=== PATIENT | male | born 1930 | race Caucasian/White ===

== ENCOUNTER → 2017-06-28 | Outpatient (CLI) | payer MEDICARE, OTHER ==
[2015-07-22 16:00] VITALS: BMI 31.4
[~2017-06-28] MED LIST: ACET-1966 PO; ACET-2031 PO; ACET-2043 PO; ALE70 PO; ALEN70TA43 PO; ASCO-188 PO; ASPI-715 PO; ASPI81TA86 PO; ASPI81TA94 PO; BIPAP; CALC-465 PO; CALC-649 PO; CALC-845 PO; CALC1TAB32 PO; CALC1TAB58 PO; CARB-222 OT; CEFT1VIA52 IM; CEFT2VIA IV; CEP250 PO; CEP500 PO; CEPH-13 PO; CIPR750T84 PO; DEN60I SUBQ; DIAZ5SOL4 PO; DOXY-179 PO; FAM20 PO; FAMO1TAB59 PO; FERR325T24 PO; FLU60SYR30 IM; FURO-45 PO; FURO20TA19 PO; GLUC100026 PO; GLUC500C29 PO; GLUC500C40 PO; HEPA100D58 IV; HYDR-2946 PO; HYDR-3104 PO; HYDR-385 PO; IBU600 PO; IRON150C19 PO; IRON1CAP52 PO; LACT1CAP6 PO; LEU3.75I IM; LEUP1KIT SQ; LEVO-85 PO; LEVO750T44 PO; LIDO700A29 TD; LOR5 PO; LOR5/325 PO; METH4TAB66 PO; METO-233 PO; METO-259 PO; METO25TA23 PO; METO50TA19 PO; MIRT-1 PO; MOM PO; MULT-820 PO; MULT1TAB64 PO; OMEG300C PO; OSE75 PO; OXYC-373 PO; OXYC5CAP21 PO; OXYGENHOME INH; PAN20 PO; PAN40 PO; PANT20TA26 PO; PANT20TA27 PO; PANT40TA65 PO; PHENA200 PO; POTA-23 PO; POTA-28 PO; POTA-53 PO; POTA10CA40 PO; PRED-1 PO; RANI150C17 PO; SALT PO; SODI30SP6 NS; TIO18R INH; TRIA10.8; VANC1VIA12 IV; VITAMIN D PO; [UNRECOGNIZED DRUG - CODE] IJ; [UNRECOGNIZED DRUG - CODE] MC; [UNRECOGNIZED DRUG - CODE] PO; [UNRECOGNIZED DRUG - CODE] PO; [UNRECOGNIZED DRUG - CODE] PO; [UNRECOGNIZED DRUG - REMARK]; [UNRECOGNIZED DRUG - REMARK]; mvi PO
== END ==
LOC: SPU 14:46
PROVIDERS: ATTEND Orthopaedic Surgery
DX: T84.84XD Pain due to internal orthopedic prosthetic devices, implants and grafts, subsequent encounter (principal)
CPT/HCPCS: 85651; 86140

== ENCOUNTER 2017-07-28 15:30 | Outpatient (RCR) | payer MEDICARE, OTHER, MEDICAID ==
[2015-07-22 16:00] VITALS: BMI 31.4
[2017-05-04 15:52] VITALS: BP 139/75
[2017-05-04 16:07] LABS: PLATELET COUNT, AUTOMATED 132 K/uL (150-450)
[2017-05-19 15:44] LABS: PLATELET COUNT, AUTOMATED 122 K/uL (150-450)
--- NOTE | 2017-05-24 15:22 | ONC Progress Note - NP.Halsey ---
Patient History Date of Service May 24, 2017 Reason For Visit/HPI Patient is seen in the clinic today for follow-up of his anemia of chronic disease, history of prostate cancer which is been without evidence of recurrence. Patient continues on Aranesp 200 g every other week. We hold Aranesp if his hemoglobin is above 11. He is doing quite well with this. Overall his energy has increased since initiation and he has not required blood transfusions. He feels very well and has concerns today. He is seen with his daughter. Patient continues to live in an assisted living facility. He has recently followed with an ENT and reports that there is a nodule on his throat that they're going to further evaluate with an MRI. He is having no difficulty swallowing. Problem List (1) Chronic kidney disease (CKD) (2) Anemia Oncology History PAST MEDICAL HISTORY 1. Paroxysmal supraventricular tachycardia 2. Skin cancer 3. Gastroesophageal reflux disease (GERD) 4. Osteoporosis 5. Vitamin B deficiency 6. Chronic anemia 7. History of prostate cancer 8. Lumbar spinal stenosis PAST SURGICAL HISTORY 1. Laminectomy in March of 2012, lumbar multiple level for lumbar stenosis 2. Bilateral orchiectomy in 1991 3. Skin cancer of the left eye in 2009 4. Skin cancer of the left sikhism in February of 2012 5. Laminectomy in 1979 of the lumbar area 6. Abdominal surgery times five, status post appendectomy, colostomy, and taking down of the colostomy. 7. Appendectomy at the age of 16. 8. Left ankle replacement in April 2012 9. Bilateral cataract extraction 10. Right elbow open reduction internal fixation (ORIF) 11. Right arthroscopic knee surgery 12. Left ankle tendon surgery 13. Hand surgery for multiple trigger finger Medical History Family History: FH: brain cancer FATHER (Father had brain cancer at age 72) BROTHER OR SISTER (Brother with brain tumor at the age of 80) FH: uterine cancer MOTHER (had uterine cancer at the age of 67) Psychosocial History Social History The patient is a . He had two daughters. He is a retired railroad contractor. He has two drinks per week. He quit smoking in 1999; prior to that he smoked two packs a day for 50 years. He denies any abuse of drugs. Smoking History: Yes Smoking Status: Former Smoker Exposure to Second Hand Smoke?: No When Quit Tobacco?: 12 years ago Medications and Allergies Active Scripts Tiotropium Nogal (SPIRIVA) 18 Mcg/Cap Inh, 1 CAP INH DAILY, #30 CAP 5 Refills Prov:RONNIE PACHECO APRNP- 05/17/17 Triamcinolone Acetonide (Nasacort) 10.8 Ml [place], 2 SPRAY NA DAILY, #1 BOTTLE 11 Refills Prov:RONNIE PACHECO APRN 05/15/17 Pantoprazole Sodium (PANTOPRAZOLE SODIUM) 20 Mg Tablet., 1 TAB PO QDAY, #90 TAB.SR 4 Refills Prov:VALE BUTT MD 11/11/16 Aspirin (ASPIRIN EC) 81 Mg Tablet., 1 TAB PO QDAY, #30 TAB 1 Refill Prov:VALE BUTT MD 05/03/16 Darbepoetin Gabriel In Polysorbat (ARANESP) 200 Mcg/1 Ml Vial, 200 MCG IJ q 2 weeks , #1 VIAL Prov:RENU CORDON GRAPPLER-BC, ONC 12/02/15 Bipap Home (BIPAP HOME) Inha, EACH QHS, #1 Prov:RONNIE PACHECO APRN [facility]- 09/10/15 Reported Medications Levofloxacin 750 Mg Tab (LEVAQUIN 750 MG TAB) 750 Mg Tablet, 1 TAB PO QODAY 05/02/16 Oxygen (OXYGEN) Inha, 3 L INH cont, L 03/10/16 Bipap Home (BIPAP HOME) Inha, HS with oxygen 3 liters 03/10/16 Sodium Chloride (SALINE NASAL SPRAY) 30 Ml [place], 2 SPR NS Q4H Y for nasal congestion, SPRAY 03/04/16 Ascorbic Acid (VITAMIN C) 500 Mg Tab.chew, 1 TAB PO BID, TAB.CHEW 03/04/16 Denosumab (PROLIA) 60 Mg/1 Ml Injs, 60 MG SUBQ Q6MO 01/13/16 Lactase (LACTAID FAST ACT) 9,000 Unit Tab.chew, 9000 UNIT PO Y for DISCOMFORT, TAB.CHEW 07/23/15 Calcium Carb & Cit/Vitamin D3 (CALCIUM + D3 ER TABLET) 1 Each Tablet.er, 1 EACH PO BID 07/23/15 Multivitamin (MULTI VITAMIN DAILY) 1 Each Tablet, 1 EACH PO DAILY 07/23/15 Allergies: Coded Allergies: amiodarone (Verified Allergy, Unknown, 01/13/16) vancomycin (Verified Allergy, Unknown, 01/13/16) mirtazapine (Verified Adverse Reaction, Intermediate, MENTAL STATUS CHANGES, 08/01/15) Per pt and pt's daughter remluisn caused increased irritability and decreased pscyhological coping skills. Review of System/Physical Exam Review of Systems All Systems Reviewed/Normal: Yes, Except as Noted HEENT: Nasal Discharge (sinus discharge possibly related to his oxygen and CPAP machine.), Other (ENT is requesting an MRI for further evaluation of a nodule on his throat) Genitourinary: Positive for Nocturia (1-2) Hematologic: Positive for Fatigue Skin: Positive for Other Physical Exam Vital Signs Temperature: 97.8 Pulse: 87 BP Systolic: 139 BP Diastolic: 75 Respiratory Rate: 16 O2 SAT: 89 O2 Delivery: Room Air Height (inches) 10.00 Weight lb: 200 Weight oz: 2.0 Weight Kg (Demond): Pain: 0 ECOG Score: 1 General: Stable, Well Developed, Well Nourished, Not In Acute Distress, Other ( he uses a walker for ambulation) HEENT: No Trauma, No Conjunctivitis, No Icterus, No Oral Thrush Lungs: Clear to Auscultation Heart: Regular Rate, Regular Rhythm, No Gallops Abdomen: Soft and Nontender, No Hepatosplenomegaly, No Masses Extremities: No Clubbing, No Edema Lymphadenopathy: No Cervical Psychiatric: Mood appears normal, Affect appears normal Diagnostic Studies Diagnostic Studies Laboratory Laboratory Tests 05/19/17 15:30 Laboratory Tests 05/19/17 15:30: White Blood Count 8.9, Red Blood Count 4.39, Hemoglobin 11.8, Hematocrit 35.6, Mean Corpuscular Volume 81.1, Mean Corpuscular Hemoglobin 26.9, Mean Corpuscular Hemoglobin Concent 33.1, Red Cell Distribution Width 18.6, Platelet Count 122, Mean Platelet Volume 9.1, Neutrophils (%) (Auto) 50.2, Lymphocytes (% ) (Auto) 25.9, Monocytes (%) (Auto) 21.1, Eosinophils (%) (Auto) 1.8, Basophils (%) (Auto) 1.0, Nucleated RBC Relative Count (auto) 0.0, Neutrophils # (Auto) 4.5, Lymphocytes # (Auto) 2.3, Monocytes # (Auto) 1.9, Eosinophils # (Auto) 0.2 , Basophils # (Auto) 0.1, Nucleated RBC Absolute Count (auto) 0.00, Peripheral Blood Smear Yes, Sodium Level 136, Potassium Level 4.6, Chloride Level 103, Carbon Dioxide Level 22, Blood Urea Nitrogen 33, Creatinine 1.70, Glomerular Filtration Rate Calc 38.3, Random Glucose 114, Calcium Level 9.2, Total Bilirubin 0.5, Aspartate Amino Transf (AST/SGOT) 23, Alanine Aminotransferase ( ALT/SGPT) 27, Alkaline Phosphatase 73, Total Protein 7.8, Albumin 4.5 Assessment and Plan Assessment & Plan Mr. Edwards is a very pleasant 86-year-old gentleman with the followin. Anemia of chronic disease, multifactorial. Continue the Aranesp indefinitely given every other week for hemoglobin less than 11. 2. History of prostate cancer, PSA less than 0.06 approximately 1 year ago. I will repeat a PSA with his next lab draw 3. History of pulmonary hypertension and congestive heart disease. These are his major issues. 4. Osteoporosis. 5. Possible mild early dementia. 6. Sinus congestion. Patient is following with ENT and will use humidifier. Patient will follow-up in 3-4 months. I personally spent a total of 15 minutes. Of that 15 minutes was counseling/ coordination of patient's care. See my note above for details. RENU CORDON GRAPPLER-BC, ONC May 24, 2017 15:22
[2017-05-24 15:28] VITALS: BP 136/65
[2017-06-01 15:45] VITALS: BP 146/66
[2017-06-01 15:58] LABS: PLATELET COUNT, AUTOMATED 87 K/uL (150-450)
[2017-06-14 15:47] LABS: PLATELET COUNT, AUTOMATED 101 K/uL (150-450)
[2017-06-14 15:57] VITALS: BP 136/78
[2017-06-28 15:01] LABS: PLATELET COUNT, AUTOMATED 124 K/uL (150-450)
[2017-07-12 16:15] LABS: PLATELET COUNT, AUTOMATED 118 K/uL (150-450)
[~2017-07-28 15:30] MED LIST changes: +DARBEPOETIN ALFA SC ONE; +DARBEPOETIN ESRD 100 MCG/0.5ML SYR SC ONE; +DARBEPOETIN ESRD 100 MCG/0.5ML SYR SC PRN; +[UNRECOGNIZED DRUG - SUPPLY]
[2017-07-28 16:06] VITALS: BP 129/78
== END 2017-08-01 ==
LOC: SPU 15:30
PROVIDERS: ATTEND Nurse Practitioner Family
DX: D46.4 Refractory anemia, unspecified (principal); D63.8 Anemia in other chronic diseases classified elsewhere; Z85.46 Personal history of malignant neoplasm of prostate; K44.9 Diaphragmatic hernia without obstruction or gangrene; K21.9 Gastro-esophageal reflux disease without esophagitis; K22.2 Esophageal obstruction; R13.10 Dysphagia, unspecified; I50.9 Heart failure, unspecified; M81.0 Age-related osteoporosis without current pathological fracture
CPT/HCPCS: 36415; 74220; 74230; 84153; 85025; 85027; 92611; 96372; J0881; J0882; 82040; 82247; 82310; 82374; 82435; 82565; 82947; 84075; 84132; 84155; 84295; 84450; 84460; 84520; 85651; 86140

== ENCOUNTER 2017-10-18 15:38 | Outpatient (RCR) | payer MEDICARE, OTHER, MEDICAID ==
[2015-07-22 16:00] VITALS: BMI 31.4
[2017-08-10 16:06] VITALS: BP 140/67
[2017-08-10] MEDS: DARBEPOETIN ESRD 100 MCG/0.5ML SYR IVP PRN (16:26)
[2017-08-24] MEDS: DARBEPOETIN ESRD 100 MCG/0.5ML SYR IVP PRN (15:46)
[2017-09-06 16:38] VITALS: BP 136/67
[2017-09-20 15:40] LABS: PLATELET COUNT, AUTOMATED 102 K/uL (150-450)
[2017-09-20] MEDS: DARBEPOETIN ESRD 100 MCG/0.5ML SYR IVP PRN (16:16)
[2017-09-20 16:42] VITALS: BP 136/67
[2017-10-02 15:55] LABS: PLATELET COUNT, AUTOMATED 102 K/uL (150-450)
[2017-10-02 16:24] VITALS: BP 139/57
--- NOTE | 2017-10-03 20:13 | ONCOLOGY FOLLOW UP NOTE ---
EVENT DATE: October 02, 2017 CHIEF COMPLAINT/REASON FOR VISIT Mr. Edwards is a very pleasant 87-year-old gentleman with anemia of chronic disease and a history of prostate cancer that presents for followup. HISTORY OF PRESENT ILLNESS Mr. Edwards returns. He continues on Aranesp 200 mcg every month. We have been holding his Aranesp if the hemoglobin is above 11. He was doing quite well with this and overall his energy has increased and he has not required any blood transfusions. He is seen with his daughter again today, and the patient continues to live in an assisted living facility. With regard to his history of prostate cancer, his PSA was checked recently elsewhere and was reportedly low. I do not have that report myself though. PAST MEDICAL HISTORY 1. Paroxysmal supraventricular tachycardia 2. Skin cancer 3. Gastroesophageal reflux disease (GERD) 4. Osteoporosis 5. Vitamin B deficiency 6. Chronic anemia 7. History of prostate cancer 8. Lumbar spinal stenosis PAST SURGICAL HISTORY 1. Laminectomy in March of 2012, lumbar multiple level for lumbar stenosis 2. Bilateral orchiectomy in 1991 3. Skin cancer of the left eye in 2009 4. Skin cancer of the left samaritan in February of 2012 5. Laminectomy in 1979 of the lumbar area 6. Abdominal surgery times five, status post appendectomy, colostomy, and taking down of the colostomy. 7. Appendectomy at the age of 16. 8. Left ankle replacement in April 2012 9. Bilateral cataract extraction 10. Right elbow open reduction internal fixation (ORIF) 11. Right arthroscopic knee surgery 12. Left ankle tendon surgery 13. Hand surgery for multiple trigger finger SOCIAL HISTORY The patient is a . He had two daughters. He is a retired railroad contractor. He has two drinks per week. He quit smoking in 1999; prior to that he smoked two packs a day for 50 years. He denies any abuse of drugs. FAMILY HISTORY Father had brain cancer at the age of 72. Mother had uterine cancer at the age of 67. Brother with brain tumor at the age of 80. ONCOLOGY HISTORY Additional history of prostate cancer diagnosed in 1981, treated with androgen deprivation therapy for over twenty years. 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 The hypogonadism also likely contributed to anemia of chronic disease. The prostate cancer therapy included prostatectomy in 1991 followed by radiation therapy to the prostate, followed by the androgen deprivation therapy in 2009. He then had bilateral orchiectomies and discontinued the Casodex and Lupron. He does have osteoporosis with history of a pathologic fracture. His PSA continues to be undetectable. REVIEW OF SYSTEMS CONSTITUTIONAL: No fevers, chills or weight change. HEENT: No headache or vision changes. CARDIOVASCULAR: No chest pain, dyspnea on exertion. RESPIRATORY: No shortness of breath, wheeze or cough. GASTROINTESTINAL: No nausea, vomiting. GENITOURINARY: No dysuria or hematuria. MUSCULOSKELETAL: Sitting in a wheelchair today. EXTREMITIES: No clubbing, cyanosis or edema. SKIN: Easy bruising, which is a chronic issue for him. LYMPHATIC: No concerning lumps or bumps. The remainder of review of systems otherwise negative. PHYSICAL EXAMINATION VITAL SIGNS: Blood pressure 139/57, pulse 68, respiratory rate 16, temperature 98.6 Fahrenheit, oxygen saturation 96% on 1.5L. Pain 0/10, fatigue 0/10. GENERAL: In stable condition, resting comfortably in the chair. HEENT: Normocephalic, atraumatic. Full physical exam deferred today to amount of time spent in counseling and coordination of care. IMPRESSION AND PLAN Mr. Edwards is a very pleasant 87-year-old gentleman with the followin. Anemia of chronic disease, multifactorial. We will continue the Aranesp indefinitely. He has been needing it monthly, so we will arrange for it this way. 2. History of prostate cancer. His PSA has been quite low and his daughter states that it continues to be. 3. History of pulmonary hypertension and congestive heart disease. These are his major medical issues at this time thankfully. 4. Osteoporosis. 5. Probable mild early dementia. 6. We will transition his Aranesp appointments to monthly, as we have been skipping every other treatment. Thus he will not need to come in for the visit in the middle. He has not had any significant low levels which would make me think that this is a bad idea. I answered all of their questions today. Billing: Return visit level 3. Total time 20 minutes, counseling time 15. MTDD
[~2017-10-18 15:38] MED LIST changes: -DARBEPOETIN ALFA SC ONE; -DARBEPOETIN ESRD 100 MCG/0.5ML SYR SC ONE; -DARBEPOETIN ESRD 100 MCG/0.5ML SYR SC PRN; +POLY17PO25 PO
[2017-10-18] MEDS: DARBEPOETIN ESRD 100 MCG/0.5ML SYR IVP PRN (16:07)
[2017-10-23] MEDS ORDERED: PANT20TA27 PO (15:31)
[2017-11-02] MEDS ORDERED: TIO18R INH (13:19)
== END 2017-11-06 ==
LOC: SPU 15:38
PROVIDERS: ATTEND Nurse Practitioner Family
DX: D63.8 Anemia in other chronic diseases classified elsewhere (principal); Z85.46 Personal history of malignant neoplasm of prostate; Z86.711 Personal history of pulmonary embolism; I50.9 Heart failure, unspecified
CPT/HCPCS: 36415; 85025; 85027; 96372; 96374; 96375; G0463; J0881; J0882; 82040; 82247; 82310; 82374; 82435; 82565; 82947; 84075; 84132; 84155; 84295; 84450; 84460; 84520; 99212

== ENCOUNTER 2017-12-04 14:30 | Emergency (ER) | payer MEDICARE, OTHER, MEDICAID ==
[2015-07-22 16:00] VITALS: Wt 96.2 kg
[~2017-12-04 14:30] MED LIST changes: -[UNRECOGNIZED DRUG - CODE]; -[UNRECOGNIZED DRUG - CODE] IJ
--- NOTE | 2017-12-04 14:34 | ER Report ---
History and Physical Time Seen By MD: 14:33 HPI/ROS CHIEF COMPLAINT: Decreased urine output, right flank pain HISTORY OF PRESENT ILLNESS: Patient is an 87-year-old male here with complaints of decreased urine output for the past 5 days, right flank pain. She was evaluated today at internal medicine clinic where he was unable to provide a urine sample due to decreased urine output. Labs were drawn and were unremarkable, similar to baseline. He was sent to the emergency department for further evaluation and imaging. Patient has a history significant for prostate cancer status post prostatectomy, orchiectomy. REVIEW OF SYSTEMS: Constitutional: No fever, no chills. Eyes: No discharge. ENT: No sore throat. Cardiovascular: No chest pain, no palpitations. Respiratory: No cough, no shortness of breath. Gastrointestinal: No abdominal pain, no vomiting. Genitourinary: + decreased UO/urinary retention Musculoskeletal: No back pain. Skin: No rashes. Neurological: No headache. Allergies: Coded Allergies: amiodarone (Verified Allergy, Unknown, 12/04/17) vancomycin (Verified Allergy, Unknown, 12/04/17) mirtazapine (Verified Adverse Reaction, Intermediate, MENTAL STATUS CHANGES, 12/04/17) Per pt and pt's daughter remeron caused increased irritability and decreased pscyhological coping skills. Home Meds Active Scripts Tiotropium [place]ando (SPIRIVA) 18 Mcg/Cap Inh, 1 CAP INH DAILY, #30 CAP 11 Refills Prov:RONNIE PACHECO APRN-C 11/02/17 Pantoprazole Sodium (PANTOPRAZOLE SODIUM) 20 Mg Tablet.dr, 1 TAB PO QDAY, #90 TAB.SR 3 Refills Prov:RONNIE PACHECO APRN-C 10/23/17 Polyethylene Glycol 3350 (MIRALAX) 17 Gm Powd.pack, 17 GM PO QM,W,F, #1 BOTTLE 5 Refills Prov:RONNIE PACHECO APRN-C 08/04/17 [motorized wheelchair] No Conflict Check Prov:RONNIE PACHECO APRN-C 07/14/17 Triamcinolone Acetonide (Nasacort) 10.8 Ml [place], 2 SPRAY NA DAILY, #1 BOTTLE 11 Refills Prov:RONNIE PACHECO APRN-C 05/15/17 Aspirin (ASPIRIN EC) 81 Mg Tablet., 1 TAB PO QDAY, #30 TAB 1 Refill Prov:VALE BUTT MD 05/03/16 Darbepoetin Gabriel In Polysorbat (ARANESP) 200 Mcg/1 Ml Vial, 200 MCG IJ q 2 weeks , #1 VIAL Prov:RENU CORDON CHANGE MANAGEMENT CONSULTANT-BC, ONC 12/02/15 Bipap Home (BIPAP HOME) Inha, EACH QHS, #1 Prov:RONNIE PACHECO APRN CHANGE MANAGEMENT CONSULTANT-C 09/10/15 Reported Medications Levofloxacin 750 Mg Tab (LEVAQUIN 750 MG TAB) 750 Mg Tablet, 1 TAB PO QODAY 05/02/16 Oxygen (OXYGEN) Inha, 3 L INH cont, L 03/10/16 Bipap Home (BIPAP HOME) Inha, HS with oxygen 3 liters 03/10/16 Sodium Chloride (SALINE NASAL SPRAY) 30 Ml [place], 2 SPR NS Q4H Y for nasal congestion, SPRAY 03/04/16 Ascorbic Acid (VITAMIN C) 500 Mg Tab.chew, 1 TAB PO BID, TAB.CHEW 03/04/16 Denosumab (PROLIA) 60 Mg/1 Ml Injs, 60 MG SUBQ Q6MO 01/13/16 Lactase (LACTAID FAST ACT) 9,000 Unit Tab.chew, 9000 UNIT PO Y for DISCOMFORT, TAB.CHEW 07/23/15 Calcium Carb & Cit/Vitamin D3 (CALCIUM + D3 ER TABLET) 1 Each Tablet.er, 1 EACH PO BID 07/23/15 Multivitamin (MULTI VITAMIN DAILY) 1 Each Tablet, 1 EACH PO DAILY 07/23/15 Hx Smoking: Yes Smoking Status: Former Smoker Exposure to Second Hand Smoke?: No Hx Substance Use Disorder: No Hx Alcohol Use: Yes Constitutional Vital Sign - Last 24 Hours 12/04/17 12/04/17 12/04/17 12/04/17 14:30 14:38 14:45 15:00 Temp 97.5 Pulse 83 73 73 Resp 16 B/P (MAP) 148/57 148/57 (87) 149/64 (92) Pulse Ox 95 98 96 O2 Delivery Nasal Cannula 12/04/17 12/04/17 12/04/17 12/04/17 15:05 15:30 15:35 16:00 Pulse 73 81 B/P (MAP) 142/67 (92) 145/73 (97) Pulse Ox 98 97 18 18 18 18 16:05 16:30 16:35 17:00 Pulse 79 74 B/P (MAP) 147/73 (97) 149/68 (95) Pulse Ox 95 97 18/18 18 18 12/04/17 17:05 17:10 17:15 17:20 Pulse 78 83 79 80 Pulse Ox 96 95 95 95 Physical Exam General Appearance: The patient is alert, has no immediate need for airway protection and no signs of toxicity. NAD Eyes: Pupils equal and round no pallor or injection. ENT, Mouth: Mucous membranes are moist. Respiratory: There are no retractions, lungs are clear to auscultation. Cardiovascular: Regular rate and rhythm. Gastrointestinal: Abdomen is soft and + mild TTP lower abdomen Neurological: No focal deficits Skin: Warm and dry, no rashes. Musculoskeletal: Neck is supple non tender. Extremities are nontender, nonswollen and have full range of motion. DIFFERENTIAL DIAGNOSIS: After history and physical exam differential diagnosis was considered for bladder outlet obstruction, kidney failure, nephrolithiasis, hydronephrosis, pyelonephritis, urinary tract infection, dehydration Medical Decision Making Data Points Laboratory Hematology Test 12/04/17 16:33 Urine Color Straw Urine Clarity Clear Urine pH 7.0 pH (4.8-9.5) Urine Specific [place] 1.006 Urine Protein Negative mg/dL (NEGATIVE) Urine Glucose (UA) Negative mg/dL (NEGATIVE) Urine Ketones Negative mg/dL (NEGATIVE) Urine Blood Small (NEGATIVE) Urine Nitrite Negative (NEGATIVE) Urine Bilirubin Negative (NEGATIVE) Urine Urobilinogen Negative mg/dL (0.2-1.9) Urine Leukocyte Esterase Negative (NEGATIVE) Urine RBC 1 /HPF (0-2/HPF) Urine WBC 1 /HPF (0-5/HPF) Urine Squamous Epithelial Cells Few /LPF (NONE-FEW) Urine Bacteria Negative /HPF (NONE-FEW) Urine Mucus None /HPF (NONE-FEW) Chemistry Test 12/04/17 16:33 Urine Color Straw Urine Clarity Clear Urine pH 7.0 pH (4.8-9.5) Urine Specific [place] 1.006 Urine Protein Negative mg/dL (NEGATIVE) Urine Glucose (UA) Negative mg/dL (NEGATIVE) Urine Ketones Negative mg/dL (NEGATIVE) Urine Blood Small (NEGATIVE) Urine Nitrite Negative (NEGATIVE) Urine Bilirubin Negative (NEGATIVE) Urine Urobilinogen Negative mg/dL (0.2-1.9) Urine Leukocyte Esterase Negative (NEGATIVE) Urine RBC 1 /HPF (0-2/HPF) Urine WBC 1 /HPF (0-5/HPF) Urine Squamous Epithelial Cells Few /LPF (NONE-FEW) Urine Bacteria Negative /HPF (NONE-FEW) Urine Mucus None /HPF (NONE-FEW) Urinalysis Test 12/04/17 16:33 Urine Color Straw Urine Clarity Clear Urine pH 7.0 pH (4.8-9.5) Urine Specific [place] 1.006 Urine Protein Negative mg/dL (NEGATIVE) Urine Glucose (UA) Negative mg/dL (NEGATIVE) Urine Ketones Negative mg/dL (NEGATIVE) Urine Blood Small (NEGATIVE) Urine Nitrite Negative (NEGATIVE) Urine Bilirubin Negative (NEGATIVE) Urine Urobilinogen Negative mg/dL (0.2-1.9) Urine Leukocyte Esterase Negative (NEGATIVE) Urine RBC 1 /HPF (0-2/HPF) Urine WBC 1 /HPF (0-5/HPF) Urine Squamous Epithelial Cells Few /LPF (NONE-FEW) Urine Bacteria Negative /HPF (NONE-FEW) Urine Mucus None /HPF (NONE-FEW) Microbiology Microbiology Date/Time Source Procedure Growth Status 12/04/17 16:33 Cath Urine Urine Culture - Preliminary NO GROWTH AFTER 1 DAY, REINCUBATED Resulted EKG/Imaging Imaging EXAMINATION: CT abdomen and pelvis without IV contrast HISTORY: Right flank pain. TECHNIQUE: Axial CT images of the abdomen and pelvis were obtained without IV contrast, with coronal and sagittal 2D reconstructed images. One of the following dose optimization techniques was utilized in the performance of this exam: Automated exposure control; adjustment of the mA and/ or kV according to the patient's size; or use of an iterative reconstruction technique. Specific details can be referenced in the facility's radiology CT exam operational policy. COMPARISON: CTA chest 10/06/2015. CT abdomen/pelvis without contrast 11/26/2014. FINDINGS: Evaluation of the solid and viscus parenchymal organs is limited without the benefit of IV contrast. Liver: Negative. Gallbladder and bile ducts: Cholelithiasis, with small stones layering in the dependent gallbladder. No adjacent inflammatory changes by CT. No bile duct dilatation. Spleen: Negative. Pancreas: Negative. Adrenal glands: Negative. Kidneys: Normal size and morphology of both kidneys. No urinary calculi or hydronephrosis. There is a 2.9 cm cortical cyst along the mid right kidney. Normal course and caliber of the ureters, without evidence of ureteral calculus. Bowel and peritoneum: The small bowel and colon are normal in caliber. No bowel obstruction. Scattered colonic diverticulosis along the descending and sigmoid colon, without evidence of diverticulitis. No free fluid or free intraperitoneal air. Small hiatal hernia. Pelvic structures: The urinary bladder is decompressed with a Nguyen catheter in place. Bladder is partially obscured by streak artifact from left hip hardware. Lymph node assessment: Negative. Vessels: Moderate vascular calcifications. Normal caliber abdominal aorta. Musculoskeletal: Advanced multilevel degenerative changes throughout the spine. There are posterior laminectomy defects at T12-L5. Stable mild chronic compression fracture of T12, with 30% loss of height. There is new patchy sclerosis in the T9 vertebral body with slight loss of height, new from the chest CT of 10/06/2015. Since the prior abdominal CT there has been revision of the proximal left femoral hardware. Generalized osteopenia. Body wall: Negative. Lung bases: Mild fibrotic changes in both lung bases. IMPRESSION: 1. No CT evidence of acute intra-abdominal pathology. 2. No urinary calculi or hydronephrosis. 3. Cholelithiasis. 4. Colonic diverticulosis, without evidence of diverticulitis. 5. 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 Stable chronic compression fracture of T12 with 30% loss of height. 6. There is new 20% loss of height at T9 with sclerosis in the vertebral body. This could represent reactive sclerosis from a compression fracture. An underlying sclerotic bone lesion is not excluded. A follow-up nonemergent thoracic spine MRI could be performed for further evaluation if clinically indicated. ED Course/Re-evaluation ED Course Patient is an 87-year-old male here with complaints of decreased urine output and urinary retention last 5 days. Patient was evaluated in clinic and was unable to give a urine sample and did not give return when a catheter was placed. CT imaging showed no signs of obstruction, hydronephrosis, bladder distention or infectious etiologies. A Nguyen catheter was placed in the emergency department and good urine output was produced so the Nguyen was kept in place until follow-up with urology was advised. Lab work was drawn in clinic and was found to be stable as compared to prior lab work. Patient remained stable throughout course in the emergency department and agreed to follow up with urology. Decision to Disposition Date: Dec 04, 2017 Decision to Disposition Time: 14:20 Depart Departure Latest Vital Signs Vital Signs Date Time Temp Pulse Resp B/P (MAP) Pulse Ox O2 Delivery O2 Flow Rate FiO2 12/04/17 17:20 80 95 12/04/17 17:00 149/68 (95) 12/04/17 14:30 97.5 16 Nasal Cannula Impression: Primary Impression: Decreased urine output Condition: Improved Disposition: HOME OR SELF-CARE Referrals: VALE BUTT MD (PCP) ALONDRA ANN MD Patient Instructions: Nguyen Catheter Placement and Care (ED) Additional Instructions: Please follow up with urology in the next several days for trial catheter removal and repeat lab work. Please follow-up with the family doctor next week for follow-up care. Please return promptly if you start to decrease tablets from the Nguyen catheter, fevers, abdominal pain, nausea, vomiting, blood in the Nguyen bag. FLYNN MAYFIELD DO Dec 04, 2017 14:33
[2017-12-04] MEDS ORDERED: LIDOCAINE 2% 200MG/10ML UROJET TP ONE (14:45)
[2017-12-04] MEDS ORDERED: NS(*) 0.9% 1000 ML BAG 1,000 ML IV ONE (15:49)
--- NOTE | 2017-12-04 16:04 | RADIOLOGY IMAGING REPORT ---
[place] [facility] [place] NAME: Alok Edwards : 1930 MR: [id number] V: [id number] EXAM DATE: ORDERING PHYSICIAN: FLYNN MAYFIELD TECHNOLOGIST: Location: [facility] [place] Patient: Alok Edwards : 1930 Visit/Account:[id number] Date of Sevice: 12/04/2017 EXAMINATION: CT abdomen and pelvis without IV contrast HISTORY: Right flank pain. TECHNIQUE: Axial CT images of the abdomen and pelvis were obtained without IV contrast, with harman l and sagittal 2D reconstructed images. One of the following dose optimization techniques was utilized in the performance of this exam: Autom ated exposure control; adjustment of the mA and/or kV according to the patient's size; or use of an i terative reconstruction technique. Specific details can be referenced in the facility's radiology C T exam operational policy. COMPARISON: CTA chest 10/06/2015. CT abdomen/pelvis without contrast 11/26/2014. FINDINGS: Evaluation of the solid and viscus parenchymal organs is limited without the benefit of IV contrast. Liver: Negative. Gallbladder and bile ducts: Cholelithiasis, with small stones layering in the dependent gallbladder. No adjacent inflammatory changes by CT. No bile duct dilatation. Spleen: Negative. Pancreas: Negative. Adrenal glands: Negative. Kidneys: Normal size and morphology of both kidneys. No urinary calculi or hydronephrosis. There is a 2.9 cm cortical cyst along the mid right kidney. Normal course and caliber of the ureters, without evidence of ureteral calculus. Bowel and peritoneum: The small bowel and colon are normal in caliber. No bowel obstruction. Scatter ed colonic diverticulosis along the descending and sigmoid colon, without evidence of diverticulitis. No free fluid or free intraperitoneal air. Small hiatal hernia. Pelvic structures: The urinary bladder is decompressed with a Nguyen catheter in place. Bladder is partially obscured by streak artifact from left hip hardware. Lymph node assessment: Negative. Vessels: Moderate vascular calcifications. Normal caliber abdominal aorta. Musculoskeletal: Advanced multilevel degenerative changes throughout the spine. There are posterior laminectomy defects at T12-L5. Stable mild chronic compression fracture of T12, with 30% loss of hei ght. There is new patchy sclerosis in the T9 vertebral body with slight loss of height, new from the chest CT of 10/06/2015. Since the prior abdominal CT there has been revision of the proximal left femoral hardware. Generaliz ed osteopenia. Body wall: Negative. Lung bases: Mild fibrotic changes in both lung bases. IMPRESSION: 1. No CT evidence of acute intra-abdominal pathology. 2. No urinary calculi or hydronephrosis. 3. Cholelithiasis. 4. Colonic diverticulosis, without evidence of diverticulitis. 5. 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 Stable chronic compression fracture of T12 with 30% loss of height. 6. There is new 20% loss of height at T9 with sclerosis in the vertebral body. This could represent r eactive sclerosis from a compression fracture. An underlying sclerotic bone lesion is not excluded. A follow-up nonemergent thoracic spine MRI could be performed for further evaluation if clinically ind icated. Report Dictated By: Johnny Johnson MD at 12/04/2017 3:42 PM Report E-Signed By: Johnny Johnosn MD at 12/04/2017 4:00 PM [id number]
[2017-12-04 17:00] VITALS: BP 149/68
== END 2017-12-04 17:34 | disposition home or self-care (01) ==
LOC: ER 14:41
DX: R39.198 Other difficulties with micturition (principal)
CPT/HCPCS: 74176; 81001; 87088; 96360; 99284; J7030

== ENCOUNTER → 2017-12-04 | Outpatient (CLI) | payer MEDICARE, OTHER, MEDICAID ==
[2015-07-22 16:00] VITALS: BMI 31.4
[~2017-12-04] MED LIST changes: +[UNRECOGNIZED DRUG - CODE]; +[UNRECOGNIZED DRUG - CODE] IJ
[2017-12-04 14:03] LABS: PLATELET COUNT, AUTOMATED 88 K/uL (150-450)
== END ==
LOC: LAB 13:49
PROVIDERS: ATTEND Nurse Practitioner Primary Care
DX: R10.9 Unspecified abdominal pain (principal)
CPT/HCPCS: 36415; 82040; 82247; 82310; 82374; 82435; 82565; 82947; 84075; 84132; 84155; 84295; 84450; 84460; 84520; 85025

== ENCOUNTER → 2017-12-05 | Outpatient (REF) | payer MEDICARE, OTHER, MEDICAID ==
[2015-07-22 16:00] VITALS: BMI 31.4
[~2017-12-05] MED LIST changes: +[UNRECOGNIZED DRUG - CODE]; +[UNRECOGNIZED DRUG - CODE] IJ
== END ==
LOC: ZZSPRING 21:36
PROVIDERS: ATTEND Internal Medicine
DX: R31.9 Hematuria, unspecified (principal); R10.9 Unspecified abdominal pain
CPT/HCPCS: 81001

== ENCOUNTER 2017-12-06 21:05 | Inpatient (IN) | payer MEDICARE, OTHER, MEDICAID ==
[2015-07-22 16:00] VITALS: Ht 177.8 cm; Wt 100.7 kg
[~2017-12-06] VITALS: Ht 177.8 cm; Wt 100.7 kg
[~2017-12-06 21:05] MED LIST changes: -BETH25TA29 PO; -IBUP200C71 PO; -TAMS0.4C70 PO; -[UNRECOGNIZED DRUG - CODE]; -[UNRECOGNIZED DRUG - CODE] IJ
--- NOTE | 2017-12-06 21:16 | ER Report ---
History and Physical Time Seen By MD: 21:16 HPI/ROS CHIEF COMPLAINT: Abdominal pain HISTORY OF PRESENT ILLNESS: This is an 87-year-old male. He was seen a couple of days ago here in the ER for left flank pain. At that time he was unable to urinate and had a catheter placed. Urine culture from that visit is negative. He had the catheter taken out and had a hard time urinating this morning, but was unable to urinate a large amount and felt better. As the day wore on he had worsening abdominal pain across his entire lower abdomen. He had a large bowel movement earlier in the day. He rates his abdominal pain a 9 on a 1-10 scale. Nothing is making it better or worse. He has a little bit of nausea associated with this. No fevers or chills. REVIEW OF SYSTEMS: As above. Allergies: Coded Allergies: amiodarone (Verified Allergy, Unknown, 12/06/17) vancomycin (Verified Allergy, Unknown, 12/06/17) mirtazapine (Verified Adverse Reaction, Intermediate, MENTAL STATUS CHANGES, 12/06/17) Per pt and pt's daughter remeron caused increased irritability and decreased pscyhological coping skills. Home Meds Active Scripts Pantoprazole Sodium (PANTOPRAZOLE SODIUM) 20 Mg Tablet.dr, 1 TAB PO QDAY, #90 TAB.SR 3 Refills Prov:RONNIE PACHECO APRN 10/23/17 Bipap Home (BIPAP HOME) Inha, EACH QHS, #1 Prov:RONNIE PACHECO APRN-[place] 09/10/15 Reported Medications Lactase (Lactaid) 3,000 Unit Tablet, TIDCF 12/07/17 Darbepoetin Gabriel In Polysorbat (ARANESP) 100 Mcg/1 Ml Vial, 200 MCG IJ Q4WK Y for low hemoglobin , VIAL 12/07/17 Denosumab (PROLIA) 60 Mg/1 Ml Injs, 60 MG SUBQ 12/07/17 Levofloxacin 750 Mg Tab (LEVAQUIN 750 MG TAB) 750 Mg Tablet, 1 TAB PO QODAY 05/02/16 Oxygen (OXYGEN) Inha, 3 L INH cont, L 03/10/16 Bipap Home (BIPAP HOME) Inha, HS with oxygen 3 liters 03/10/16 Sodium Chloride (SALINE NASAL SPRAY) 30 Ml [place], 2 SPR NS Q4H Y for nasal congestion, SPRAY 03/04/16 Discontinued Reported Medications Ascorbic Acid (VITAMIN C) 500 Mg Tab.chew, 1 TAB PO BID, TAB.CHEW 03/04/16 Denosumab (PROLIA) 60 Mg/1 Ml Injs, 60 MG SUBQ Q6MO 01/13/16 Lactase (LACTAID FAST ACT) 9,000 Unit Tab.chew, 9000 UNIT PO Y for DISCOMFORT, TAB.CHEW 07/23/15 Calcium Carb & Cit/Vitamin D3 (CALCIUM + D3 ER TABLET) 1 Each Tablet.er, 1 EACH PO BID 07/23/15 Multivitamin (MULTI VITAMIN DAILY) 1 Each Tablet, 1 EACH PO DAILY 07/23/15 Discontinued Scripts Tiotropium [place] (SPIRIVA) 18 Mcg/Cap Inh, 1 CAP INH DAILY, #30 CAP 11 Refills Prov:RONNIE PACHECO APRN HAND PACKER/PACKAGER-C 11/02/17 Polyethylene Glycol 3350 (MIRALAX) 17 Gm Powd.pack, 17 GM PO QM,W,F, #1 BOTTLE 5 Refills Prov:RONNIE PACHECO APRNP-C 08/04/17 [motorized wheelchair] No Conflict Check Prov:RONNIE PACHECO APRNP-C 07/14/17 Triamcinolone Acetonide (Nasacort) 10.8 Ml [place], 2 SPRAY NA DAILY, #1 BOTTLE 11 Refills Prov:RONNIE PACHECO APRN HAND PACKER/PACKAGER-C 05/15/17 Aspirin (ASPIRIN EC) 81 Mg Tablet., 1 TAB PO QDAY, #30 TAB 1 Refill Prov:VALE BUTT MD 05/03/16 Darbepoetin Gabriel In Polysorbat (ARANESP) 200 Mcg/1 Ml Vial, 200 MCG IJ q 2 weeks , #1 VIAL Prov:RENU CORDON HAND PACKER/PACKAGER-BC, ONC 12/02/15 Past Medical/Surgical History History of atrial fibrillation, PSVT, sleep apnea, emphysema, GERD, arthritis, history of right hip fracture with Gamma nail fixture, history of prostate cancer with radical prostatectomy and bilateral orchiectomy, appendectomy, history of temporary colostomy, multiple orthopedic surgeries including ankle, trigger finger, total ankle, laminectomy and decompression surgeries on the spine, broken nose surgery, cataract surgery bilaterally, 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 Reviewed Nurses Notes: Yes Hx Smoking: Yes Smoking Status: Former Smoker Exposure to Second Hand Smoke?: No Hx Substance Use Disorder: No Hx Alcohol Use: Yes Constitutional Vital Sign - Last 24 Hours 12/06/17 12/06/17 12/06/17 12/06/17 21:08 21:11 21:20 21:35 Temp 98.5 Pulse 78 82 89 Resp 22 56 31 B/P (MAP) 177/82 (113) 177/82 Pulse Ox 98 97 96 O2 Delivery Nasal Cannula 12/06/17 12/06/17 12/06/17 12/06/17 21:49 21:50 22:00 22:05 Pulse 84 84 Resp 26 21 B/P (MAP) 117/63 (81) 129/72 (91) Pulse Ox 95 95 12/06/17 12/06/17 12/06/17 12/06/17 22:20 22:30 22:35 22:50 Pulse 82 84 85 Resp 24 26 19 B/P (MAP) 153/81 (105) Pulse Ox 96 96 95 12/06/17 12/06/17 12/06/17 12/06/17 22:55 23:25 23:30 23:40 Pulse 92 91 Resp 21 28 B/P (MAP) 167/83 (111) Pulse Ox 91 95 96 12/06/17 12/07/17 12/07/17 12/07/17 23:55 00:00 00:25 00:30 Pulse 84 79 Resp 14 26 B/P (MAP) 130/74 (92) 118/75 (89) Pulse Ox 95 98 12/07/17 12/07/17 12/07/17 00:40 00:45 01:00 Pulse 77 75 80 Resp 13 14 19 B/P (MAP) 138/73 (94) Pulse Ox 98 98 99 Physical Exam General Appearance: The patient is alert. Acute distress due to pain. Eyes: Pupils are equal, round. No pallor, injection or icterus. ENT: Mucous membranes are moist. Neck: Supple, nontender. Respiratory: Lungs are clear to auscultation. Cardiovascular: Regular rate and rhythm. Gastrointestinal: Abdomen is soft, very painful throughout the lower abdomen. Non-distended. Hypoactive bowel sounds. Skin: Warm and dry. No rashes. DIFFERENTIAL DIAGNOSIS: After history and physical exam, differential diagnosis was considered for abdominal pain including but not limited to appendicitis, cholecystitis, gastritis and urinary tract infection. Medical Decision Making Data Points Result Diagram: 12/06/17 0000 12/06/17 0000 Laboratory Hematology Test 12/06/17 00:00 12/07/17 00:07 Red Blood Count 3.44 M/uL (4.00-5.60) Mean Corpuscular Volume 78.4 fL (80.0-96.0) Mean Corpuscular Hemoglobin 26.6 pg (26.0-33.0) Mean Corpuscular Hemoglobin Concent 34.0 g/dL (32.0-36.0) Red Cell Distribution Width 18.6 % (11.5-14.5) Mean Platelet Volume 10.4 fL (7.2-11.1) Neutrophils (%) (Auto) % (39.4-72.5) Lymphocytes (%) (Auto) % (17.6-49.6) Monocytes (%) (Auto) % (4.1-12.4) Eosinophils (%) (Auto) % (0.4-6.7) Basophils (%) (Auto) % (0.3-1.4) Nucleated RBC Relative Count (auto) /100WBC Neutrophils # (Auto) K/uL (2.0-7.4) Lymphocytes # (Auto) K/uL (1.3-3.6) Monocytes # (Auto) K/uL (0.3-1.0) Eosinophils # (Auto) K/uL (0.0-0.5) Basophils # (Auto) K/uL (0.0-0.1) Nucleated RBC Absolute Count (auto) K/uL Neutrophils % (Manual) 70 % (39.4-72.5) Band Neutrophils % 4 % Lymphocytes % (Manual) 14 % (17.6-49.6) Monocytes % (Manual) 8 % (4.1-12.4) Eosinophils % (Manual) 0 % (0.4-6.7) Basophils % (Manual) 0 % (0.3-1.4) Metamyelocytes % 2 % Myelocytes % 2 % Anisocytosis 1+ Peripheral Blood Smear Yes Y/N Sodium Level 125 mmol/L (137-145) Potassium Level 4.4 mmol/L (3.5-5.0) Chloride Level 93 mmol/L (98-107) Carbon Dioxide Level 18 mmol/L (22-30) Blood Urea Nitrogen 24 mg/dl (9-21) Creatinine 1.70 mg/dl (0.66-1.25) Glomerular Filtration Rate Calc 38.2 Random Glucose 111 mg/dl (75-110) Lactate 0.8 mmol/L (0.7-2.1) Calcium Level 8.4 mg/dl (8.4-10.2) Total Bilirubin 0.8 mg/dl (0.2-1.3) Aspartate Amino Transf (AST/SGOT) 28 U/L (0-35) Alanine Aminotransferase (ALT/SGPT) 24 U/L (0-56) Alkaline Phosphatase 80 U/L (0-126) Total Protein 7.6 g/dl (6.3-8.2) Albumin 4.2 g/dl (3.5-5.0) Amylase Level 89 U/L (0-110) Lipase 56 U/L (23-300) Urine Color Yolanda Urine Clarity Clear Urine pH 7.0 pH (4.8-9.5) Urine Specific [place] 1.010 Urine Protein 30 mg/dL (NEGATIVE) Urine Glucose (UA) Negative mg/dL (NEGATIVE) Urine Ketones Negative mg/dL (NEGATIVE) Urine Blood Large (NEGATIVE) Urine Nitrite Positive (NEGATIVE) Urine Bilirubin Negative (NEGATIVE) Urine Urobilinogen 2.0 mg/dL (0.2-1.9) Urine Leukocyte Esterase Negative (NEGATIVE) Urine RBC 344 /HPF (0-2/HPF) Urine WBC 7 /HPF (0-5/HPF) Urine Squamous Epithelial Cells Moderate /LPF (NONE-FEW) Urine Bacteria Negative /HPF (NONE-FEW) Urine Mucus None /HPF (NONE-FEW) Urine Random Sodium 61 MEQ/L Chemistry Test 12/06/17 00:00 12/07/17 00:07 White Blood Count 12.6 k/uL (4.5-11.0) Red Blood Count 3.44 M/uL (4.00-5.60) Hemoglobin 9.2 g/dL (14.0-18.0) Hematocrit 27.0 % (42.0-52.0) Mean Corpuscular Volume 78.4 fL (80.0-96.0) Mean Corpuscular Hemoglobin 26.6 pg (26.0-33.0) Mean Corpuscular Hemoglobin Concent 34.0 g/dL (32.0-36.0) Red Cell Distribution Width 18.6 % (11.5-14.5) Platelet Count 81 K/uL (150-450) Mean Platelet Volume 10.4 fL (7.2-11.1) Neutrophils (%) (Auto) % (39.4-72.5) Lymphocytes (%) (Auto) % (17.6-49.6) Monocytes (%) (Auto) % (4.1-12.4) Eosinophils (%) (Auto) % (0.4-6.7) Basophils (%) (Auto) % (0.3-1.4) Nucleated RBC Relative Count (auto) /100WBC Neutrophils # (Auto) K/uL (2.0-7.4) Lymphocytes # (Auto) K/uL (1.3-3.6) Monocytes # (Auto) K/uL (0.3-1.0) Eosinophils # (Auto) K/uL (0.0-0.5) Basophils # (Auto) K/uL (0.0-0.1) Nucleated RBC Absolute Count (auto) K/uL Neutrophils % (Manual) 70 % (39.4-72.5) Band Neutrophils % 4 % Lymphocytes % (Manual) 14 % (17.6-49.6) Monocytes % (Manual) 8 % (4.1-12.4) Eosinophils % (Manual) 0 % (0.4-6.7) Basophils % (Manual) 0 % (0.3-1.4) Metamyelocytes % 2 % Myelocytes % 2 % Anisocytosis 1+ Peripheral Blood Smear Yes Y/N Glomerular Filtration Rate Calc 38.2 Lactate 0.8 mmol/L (0.7-2.1) Calcium Level 8.4 mg/dl (8.4-10.2) Total Bilirubin 0.8 mg/dl (0.2-1.3) Aspartate Amino Transf (AST/SGOT) 28 U/L (0-35) Alanine Aminotransferase (ALT/SGPT) 24 U/L (0-56) Alkaline Phosphatase 80 U/L (0-126) Total Protein 7.6 g/dl (6.3-8.2) Albumin 4.2 g/dl (3.5-5.0) Amylase Level 89 U/L (0-110) Lipase 56 U/L (23-300) Urine Color Yolanda Urine Clarity Clear Urine pH 7.0 pH (4.8-9.5) Urine Specific [place] 1.010 Urine Protein 30 mg/dL (NEGATIVE) Urine Glucose (UA) Negative mg/dL (NEGATIVE) Urine Ketones Negative mg/dL (NEGATIVE) Urine Blood Large (NEGATIVE) Urine Nitrite Positive (NEGATIVE) Urine Bilirubin Negative (NEGATIVE) Urine Urobilinogen 2.0 mg/dL (0.2-1.9) Urine Leukocyte Esterase Negative (NEGATIVE) Urine RBC 344 /HPF (0-2/HPF) Urine WBC 7 /HPF (0-5/HPF) Urine Squamous Epithelial Cells Moderate /LPF (NONE-FEW) Urine Bacteria Negative /HPF (NONE-FEW) Urine Mucus None /HPF (NONE-FEW) Urine Random Sodium 61 MEQ/L Urinalysis Test 12/07/17 00:07 Urine Color Yolanda Urine Clarity Clear Urine pH 7.0 pH (4.8-9.5) Urine Specific [place] 1.010 Urine Protein 30 mg/dL (NEGATIVE) Urine Glucose (UA) Negative mg/dL (NEGATIVE) Urine Ketones Negative mg/dL (NEGATIVE) Urine Blood Large (NEGATIVE) Urine Nitrite Positive (NEGATIVE) Urine Bilirubin Negative (NEGATIVE) Urine Urobilinogen 2.0 mg/dL (0.2-1.9) Urine Leukocyte Esterase Negative (NEGATIVE) Urine RBC 344 /HPF (0-2/HPF) Urine WBC 7 /HPF (0-5/HPF) Urine Squamous Epithelial Cells Moderate /LPF (NONE-FEW) Urine Bacteria Negative /HPF (NONE-FEW) Urine Mucus None /HPF (NONE-FEW) Urine Random Sodium 61 MEQ/L EKG/Imaging Imaging CT of the abdomen and pelvis with contrast: Indication: Right-sided abdominal pain. Technique: Helical CT was performed through the abdomen and pelvis following IV contrast enhancement with 75 cc of Isovue-370. Multiplanar reconstructions are reviewed. One of the following dose optimization techniques was utilized in the performance of this exam: Automated exposure control; adjustment of the mA and/ or kV according to the patient's size; or use of an iterative reconstruction technique. Specific details can be referenced in the facility's radiology CT exam operational policy. Comparison: 12/04/2017 Lower lung yang: There are minimal linear atelectatic opacities at both lung bases. There is minimal fluid in the right pleural space. There is chronic right pleural calcification. Liver: Unremarkable and unchanged. There is uniform contrast enhancement. Gallbladder/biliary tree: There is persistent evidence of small stones in the dependent portion of the gallbladder lumen. There is increased distention of the gallbladder, but there are no signs of inflammation or fluid around the wall. The bile ducts are not dilated. Pancreas: Normal in size, shape, and density. Spleen: Normal in size, shape, and density. Adrenal glands: Within normal limits. Kidneys/urinary bladder: The kidneys are normal in size, shape, and density. There is a small simple cyst in the right kidney. There is now evidence of mild dilatation of the bilateral intrarenal collecting structures and bilateral ureters. No ureteral calculi are identified. There is mild/moderate distention of the urinary bladder. The Nguyen catheter is no longer present. The bilateral ureteral dilatation is most likely related to bladder distention. Intestinal structures: Unremarkable, as visualized. No acute interval change. There is moderate diverticulosis in the sigmoid colon. There are no signs of acute diverticulitis. Pelvis: Unchanged. Aorta and vascular structures: There are stable atherosclerotic changes in the aorta, mesenteric, renal, and iliac arteries. Ascites or fluid collections: None seen. Skeletal structures: There are stable degenerative changes in the spine and pelvis. The left hip prosthesis appears unremarkable. No acute skeletal deformity is identified. Impression: Bladder and bilateral urinary tract distention. No urinary tract calculi are identified. Other findings, as described above. Report Dictated By: Umesh Markham MD at 12/06/2017 11:44 PM ED Course/Re-evaluation Clinical Indication for ER IV: Hydration, IV Access ED Course After the initial evaluation, the patient was given 4 mg of Zofran IV and 4 mg of morphine IV. This did not touch his pain at all. Dilaudid 1 mg IV was given. Labs came back showing hyponatremia with a sodium of 125. He had anemia which has been slowly decreasing, but white count was okay. He had some renal insufficiency as well with an estimated GFR of 38.5. Prying to doing CT scan of the abdomen and pelvis with contrast, liter of normal saline was given. On return from CT was continued with normal saline at 125 cc per hour. Abdomen pelvis CT was negative for acute problem other than bladder distention. Patient was still not having pain control and was given another 0.5 mg of Dilaudid IV. A Nguyen catheter was finally used as the patient was still unable to urinate. Upon placing the coud catheter, patient had significant amount of bloody urine but felt significant relief. Discussed the case with Dr. Alberts who will admit the patient for hyponatremia. Decision to Disposition Date: Dec 07, 2017 Decision to Disposition Time: 00:44 Depart Departure Latest Vital Signs Vital Signs Date Time Temp Pulse Resp B/P (MAP) Pulse Ox O2 Delivery O2 Flow Rate FiO2 12/07/17 01:00 80 19 138/73 (94) 99 12/06/17 21:11 98.5 Nasal Cannula Impression: Primary Impression: Hyponatremia Additional Impression: Acute urinary retention Condition: Improved Disposition: Admitted from ER Referrals: VALE BUTT MD (PCP) Problem Qualifiers JIM ASHTON MD Dec 06, 2017 21:16
[2017-12-06] MEDS ORDERED: MORPHINE 4 MG/ML SDV IVP ONE ×2 (21:25→21:45)
[2017-12-06] MEDS ORDERED: ONDANSETRON 4 MG/2 ML VIAL IVP ONE (21:25)
[2017-12-06 21:29] LABS: PLATELET COUNT, AUTOMATED 81 K/uL (150-450)
[2017-12-06] MEDS ORDERED: IOPAMIDOL 76% 75 ML INFUS BTL 75 ML ONE (21:33)
[2017-12-06] MEDS ORDERED: HYDROmorphone* 1 MG/ML 1 MG/ML ML IVP ONE ×3 (21:45→23:20)
[2017-12-06] MEDS ORDERED: NS(*) 0.9% 1000 ML BAG 1,000 ML IV ONE (21:45)
[2017-12-06] MEDS ORDERED: LIDOCAINE 2% 200MG/10ML UROJET TP ONE (23:20)
--- NOTE | 2017-12-07 00:03 | RADIOLOGY IMAGING REPORT ---
FACILITY: [facility] PATIENT NAME: Alok Edwards : 1930 MR: [id number] V: [id number] EXAM DATE: ORDERING PHYSICIAN: JIM ASHTON TECHNOLOGIST: Location: [facility] Patient: Alok Edwards : 1930 Visit/Account:[id number] Date of Sevice: 12/06/2017 CT of the abdomen and pelvis with contrast: Indication: Right-sided abdominal pain. Technique: Helical CT was performed through the abdomen and pelvis following IV contrast enhancement with 75 cc of Isovue-370. Multiplanar reconstructions are reviewed. One of the following dose optimization techniques was utilized in the performance of this exam: Autom ated exposure control; adjustment of the mA and/or kV according to the patient's size; or use of an i terative reconstruction technique. Specific details can be referenced in the facility's radiology CT exam operational policy. Comparison: 12/04/2017 Lower lung yang: There are minimal linear atelectatic opacities at both lung bases. There is minima l fluid in the right pleural space. There is chronic right pleural calcification. Liver: Unremarkable and unchanged. There is uniform contrast enhancement. Gallbladder/biliary tree: There is persistent evidence of small stones in the dependent portion of th e gallbladder lumen. There is increased distention of the gallbladder, but there are no signs of infl ammation or fluid around the wall. The bile ducts are not dilated. Pancreas: Normal in size, shape, and density. Spleen: Normal in size, shape, and density. Adrenal glands: Within normal limits. Kidneys/urinary bladder: The kidneys are normal in size, shape, and density. There is a small simple cyst in the right kidney. There is now evidence of mild dilatation of the bilateral intrarenal collec ting structures and bilateral ureters. No ureteral calculi are identified. There is mild/moderate dis tention of the urinary bladder. The Nguyen catheter is no longer present. The bilateral ureteral dilat ation is most likely related to bladder distention. Intestinal structures: Unremarkable, as visualized. No acute interval change. There is moderate diver ticulosis in the sigmoid colon. There are no signs of acute diverticulitis. Pelvis: Unchanged. Aorta and vascular structures: There are stable atherosclerotic changes in the aorta, mesenteric, shay al, and iliac arteries. Ascites or fluid collections: None seen. Skeletal structures: There are stable degenerative changes in the spine and pelvis. The left hip pros thesis appears unremarkable. No acute skeletal deformity is identified. Impression: Bladder and bilateral urinary tract distention. No urinary tract calculi are identified. Other findings, as described above. Report Dictated By: Umesh Markham MD at 12/06/2017 11:44 PM Report E-Signed By: Umesh Markham MD at 12/06/2017 11:58 PM WSN:[id number]
[2017-12-07] MEDS ORDERED: NS(*) 0.9% 1000 ML BAG 1,000 ML IV ONE (00:20)
[2017-12-07] MEDS ORDERED: INFLUENZA VIRUS VAC 0.5 ML SYR IM ONLY ONE (01:00)
--- NOTE | 2017-12-07 01:37 | History & Physical ---
History of Present Illness History of Present Illness 87yo male with a h/o prostate cancer status post prostatectomy and orchiectomy who was brought to the ER for difficulty urinating and abdominal discomfort. About 8 days ago, he noted right groin and flank pain. It worsened with activity. It persisted up until a couple of days ago. 3 days ago, he had low abdominal pain and difficulty urinating. He went to his PCP's office. They tried to straight catheterize him, but were unable to get any urine. He went to the ER and they placed a catheter. He felt much better and was sent to back to [facility]. Apparently, [facility] cannot do catheter care, so it was removed 2 days ago. He seemed to be doing well with urination until yesterday morning. He had the low abdominal pain again and couldn't urinated. Around noon he had a BM and was able to urinate, but then struggled after that. Finally, he was brought to the ER. He denies f/c/n/v/diarrhea. He has had dysuria since the catheter was placed the first time. He did receive 5mg of Baclofen 4 days ago and yesterday around noon for the right groin and flank pain. He has never had that medication before, but his daughter thought it might help the discomfort. In the ER, they were able to place a catheter after a bit of struggle. They got out about 550cc. He feels much better after that was placed. History Problems: (1) Gastroesophageal reflux Status: Chronic (2) Skin cancer Status: Chronic (3) Bilateral cataracts Status: Chronic (4) Paroxysmal supraventricular tachycardia Status: Chronic (5) S/p left hip fracture Status: Resolved (6) Hardware complicating wound infection Status: Acute (7) Status post left ankle joint replacement Status: Resolved (8) History of prostate cancer Status: Chronic (9) Osteomyelitis of left hip Status: Chronic (10) COPD (chronic obstructive pulmonary disease) Status: Chronic (11) Anemia of chronic disease Status: Chronic (12) Lumbar spinal stenosis Status: Chronic (13) Chronic kidney disease (CKD) Status: Chronic (14) Elbow joint replacement status Status: Chronic (15) History of appendectomy Status: Resolved (16) History of orchiectomy, bilateral Status: Resolved (17) S/P laminectomy Status: Chronic (18) S/P surgical manipulation of ankle joint Status: Chronic (19) Hx of abdominal surgery Status: Resolved (20) Status post lumbar laminectomy Status: Resolved (21) S/P right knee arthroscopy Status: Resolved (22) NICOLETTE treated with BiPAP Status: Chronic Home Meds Active Scripts Tiotropium [place] (SPIRIVA) 18 Mcg/Cap Inh, 1 CAP INH DAILY, #30 CAP 11 Refills Prov:RONNIE PACHECO APRNP-C 11/02/17 Pantoprazole Sodium (PANTOPRAZOLE SODIUM) 20 Mg Tablet.dr, 1 TAB PO QDAY, #90 TAB.SR 3 Refills Prov:RONNIE PACHECO APRNP-C 10/23/17 Bipap Home (BIPAP HOME) Inha, EACH QHS, #1 Prov:RONNIE PACHECO APRNP-C 09/10/15 Reported Medications Levofloxacin 750 Mg Tab (LEVAQUIN 750 MG TAB) 750 Mg Tablet, 1 TAB PO QODAY 05/02/16 Oxygen (OXYGEN) Inha, 3 L INH cont, L 03/10/16 Bipap Home (BIPAP HOME) Inha, HS with oxygen 3 liters 03/10/16 Sodium Chloride (SALINE NASAL SPRAY) 30 Ml [place], 2 SPR NS Q4H Y for nasal congestion, SPRAY 03/04/16 Discontinued Reported Medications Ascorbic Acid (VITAMIN C) 500 Mg Tab.chew, 1 TAB PO BID, TAB.CHEW 03/04/16 Denosumab (PROLIA) 60 Mg/1 Ml Injs, 60 MG SUBQ Q6MO 01/13/16 Lactase (LACTAID FAST ACT) 9,000 Unit Tab.chew, 9000 UNIT PO Y for DISCOMFORT, TAB.CHEW 07/23/15 Calcium Carb & Cit/Vitamin D3 (CALCIUM + D3 ER TABLET) 1 Each Tablet.er, 1 EACH PO BID 07/23/15 Multivitamin (MULTI VITAMIN DAILY) 1 Each Tablet, 1 EACH PO DAILY 07/23/15 Discontinued Scripts Polyethylene Glycol 3350 (MIRALAX) 17 Gm Powd.pack, 17 GM PO QM,W,F, #1 BOTTLE 5 Refills Prov:RONNIE PACHECO APRNP-C 08/04/17 [motorized wheelchair] No Conflict Check Prov:RONNIE PACHECO APRN-C 07/14/17 Triamcinolone Acetonide (Nasacort) 10.8 Ml [place], 2 SPRAY NA DAILY, #1 BOTTLE 11 Refills Prov:RONNIE PACHECO APRN PHOTOVOLTAIC SOLAR CELL DESIGNER-C 05/15/17 Aspirin (ASPIRIN EC) 81 Mg Tablet., 1 TAB PO QDAY, #30 TAB 1 Refill Prov:VALE BUTT MD 05/03/16 Darbepoetin Gabriel In Polysorbat (ARANESP) 200 Mcg/1 Ml Vial, 200 MCG IJ q 2 weeks , #1 VIAL Prov:RENU CORDON PHOTOVOLTAIC SOLAR CELL DESIGNER-BC, ONC 12/02/15 Allergies: Coded Allergies: amiodarone (Verified Allergy, Unknown, 12/06/17) vancomycin (Verified Allergy, Unknown, 12/06/17) mirtazapine (Verified Adverse Reaction, Intermediate, MENTAL STATUS CHANGES, 12/06/17) Per pt and pt's daughter remeron caused increased irritability and decreased pscyhological coping skills. Patient History: FH: brain cancer FATHER (Father had brain cancer at age 72) BROTHER OR SISTER (Brother with brain tumor at the age of 80) FH: uterine cancer MOTHER (had uterine cancer at the age of 67) Hx Smoking: Yes Smoking Status: Former Smoker Exposure to Second Hand Smoke?: No Caffeine Intake: Coffee, Tea, Soda Caffeine/Cups Per Day: 2 or 3 Hx Alcohol Use: Yes Hx Substance Use Disorder: No Social Drug Use: Never Review of Systems All Systems Reviewed/Normal: Yes, Except as Noted Exam Vital Signs Vital Signs Date Time Temp Pulse Resp B/P (MAP) Pulse Ox O2 Delivery O2 Flow Rate FiO2 12/07/17 00:40 77 13 98 12/07/17 00:30 118/75 (89) 12/06/17 21:11 98.5 Nasal Cannula General Appearance: Alert, Awake, No Acute Distress Eyes: PERRLA ENT: Moist Mucous Membranes Cardiovascular: Regular Rate and Rhythm Respiratory: Clear to Auscultation GI: Abd Soft and Non-Tender Extremities: Edema (1+ pitting edema to knees bilaterally) Integumentary: Other (left hip scar with chronic purplish pigmentation around it) Medical Decision Making Data Points Result Diagram: 12/06/17 0000 12/06/17 0000 Item Value Date Time Aspartate Amino Transf (AST/SGOT) 81 U/L H 04/30/13 0738 Alanine Aminotransferase (ALT/SGPT) 267 U/L H 04/30/13 0738 Alkaline Phosphatase 159 U/L H 04/30/13 0738 Total Protein 5.7 gm/dl L 04/30/13 0738 C-Reactive Protein 16.1 mg/dl H 06/27/15 0510 Creatinine 1.70 mg/dl H 12/06/17 0000 Creatinine 2.00 mg/dl H 12/04/17 1350 Creatinine 1.90 mg/dl H 10/18/17 1545 Sodium Level 137 mmol/L 10/18/17 1545 Sodium Level 135 mmol/L L 12/04/17 1350 Sodium Level 125 mmol/L *L 12/06/17 0000 White Blood Count 8.4 k/uL 12/04/17 1350 White Blood Count 12.6 k/uL H 12/06/17 0000 Neutrophils % (Manual) 70 % 12/06/17 0000 Neutrophils % (Manual) 54 % 12/04/17 1350 Hemoglobin 9.9 g/dL L 12/04/17 1350 Hemoglobin 9.2 g/dL L 12/06/17 0000 Urine Glucose (UA) 50 mg/dL H 12/05/17 2151 Urine Glucose (UA) Negative mg/dL 12/04/17 1633 Urine Leukocyte Esterase Negative 12/05/17 2151 Urine Leukocyte Esterase Negative 12/04/17 1633 Urine RBC 1 /HPF 12/04/17 1633 Urine RBC 118 /HPF 12/05/17 2151 Urine WBC 1 /HPF 12/05/17 2151 Urine WBC 1 /HPF 12/04/17 1633 Urine Squamous Epithelial Cells Few /LPF 12/04/17 1633 Urine Squamous Epithelial Cells Few /LPF 12/05/17 2151 Urine Blood Small 12/04/17 1633 Urine Blood Large 12/05/17 2151 EKG / Imaging Imaging Abd/Pelvis CT -Lower lung yang: There are minimal linear atelectatic opacities at both lung bases. There is minimal fluid in the right pleural space. There is chronic right pleural calcification. Liver: Unremarkable and unchanged. There is uniform contrast enhancement. Gallbladder/biliary tree: There is persistent evidence of small stones in the dependent portion of the gallbladder lumen. There is increased distention of the gallbladder, but there are no signs of inflammation or fluid around the wall. The bile ducts are not dilated. Pancreas: Normal in size, shape, and density. Spleen: Normal in size, shape, and density. Adrenal glands: Within normal limits. Kidneys/urinary bladder: The kidneys are normal in size, shape, and density. There is a small simple cyst in the right kidney. There is now evidence of mild dilatation of the bilateral intrarenal collecting structures and bilateral ureters. No ureteral calculi are identified. There is mild/moderate distention of the urinary bladder. The Nguyen catheter is no longer present. The bilateral ureteral dilatation is most likely related to bladder distention. Intestinal structures: Unremarkable, as visualized. No acute interval change. There is moderate diverticulosis in the sigmoid colon. There are no signs of acute diverticulitis. Pelvis: Unchanged. Aorta and vascular structures: There are stable atherosclerotic changes in the aorta, mesenteric, renal, and iliac arteries. Ascites or fluid collections: None seen. Skeletal structures: There are stable degenerative changes in the spine and pelvis. The left hip prosthesis appears unremarkable. No acute skeletal deformity is identified. Impression: Bladder and bilateral urinary tract distention. No urinary tract calculi are identified. Other findings, as described above. Assessment and Plan Problems: (1) Hyponatremia Status: Acute Assessment & Plan: He had a drop from 135 to 125 over 2 days. Likely, it is related to the urinary retention. However, he has had hyponatremia in the past and was on salt tablets for a time. Will check Maria Alejandra/UOsm/SOsm. Recheck BMP in a few hours. He received NS in the ER, so will saline lock. (2) Acute urinary retention Status: Acute Assessment & Plan: He has a h/o prostate cancer with resection and bilateral orchiectomy. He developed problems about 3 days ago. He did receive 2 doses of Baclofen over the last 4 days. He has a catheter in place and feels much better. Will discuss with Urology. (3) Edema Status: Chronic Assessment & Plan: He chronically has LE edema, but his daughter noted that it is a bit worse tonight. Will follow. (4) Anemia Onset Date: 11/20/2014 Status: Chronic Assessment & Plan: Related to anemia of chronic disease. Followed by Hematology. He gets monthly Aranesp when Hgb <11. (5) Osteomyelitis of left hip Status: Chronic Assessment & Plan: He is on chronic suppressive Levofloxacin 750mg every other day, which will be continued. He is able to ambulate with a walker, but uses a power chair. There is concern that hardware in the femur is starting to push through the bone, so is minimizing activity. (6) GERD (gastroesophageal reflux disease) Status: Chronic Assessment & Plan: Continue chronic Protonix. (7) NICOLETTE treated with BiPAP Status: Chronic (8) CKD (chronic kidney disease) stage 3, GFR 30-59 ml/min Status: Chronic (9) Thrombocytopenia Status: Chronic Copies to: VALE BUTT MD; SKY BECKMAN DNP, PHOTOVOLTAIC SOLAR CELL DESIGNER-BC Venous Thromboembolism Antithrombotics Is Pt On Any Antithrombotics?: No Exam Sepsis Risk: No Definite Risk DIALLO MUSE MD Dec 07, 2017 01:37
[2017-12-07 01:40] VITALS: BP 144/85
[2017-12-07] MEDS ORDERED: [UNRECOGNIZED DRUG - CODE] (01:51)
[2017-12-07] MEDS ORDERED: DEN60I SUBQ (01:51)
[2017-12-07] MEDS ORDERED: [UNRECOGNIZED DRUG - CODE] IJ (01:51)
[2017-12-07] MEDS ORDERED: POLY17PO25 PO (04:55)
[2017-12-07] MEDS ORDERED: IBUP200C71 PO (04:55)
[2017-12-07] MEDS ORDERED: MOM PO (04:59)
[2017-12-07 05:46] LABS: PLATELET COUNT, AUTOMATED 84 K/uL (150-450)
[2017-12-07 07:41] VITALS: BP 109/57
[2017-12-07] MEDS ORDERED: ENOXAPARIN 30 MG/0.3 ML SYR SC SCH (09:00)
[2017-12-07] MEDS: PANTOPRAZOLE SOD 20 MG TABEC PO SCH (09:31)
--- NOTE | 2017-12-07 14:00 | Medical Nutrition Therapy ---
Nutrition Anthropometrics Height (Inches): 70 Weight (Pounds): 222 Weight (Calculated Kilograms): 100.953 BMI: 31 [place] Nutrition Score: Adequate [place] Nutrition Risk Score: 17 Dietary Referral Nutrition Risk Factors: Non-Healing Wound Nutrition Risk Comment: non-healing wound-=infection in hip Physical Findings Physical Appearance: Obese BMI 30-39 Skin Appearance Skin Appearance: Edema Edema Location Modifier: Both Edema Location: Lower Extremity Type of Edema: Degree of Edema: 2+ Gastrointestinal Symptoms GI Symtoms: Tube Present: Bowel Sounds: Recent Bowel Pattern: Stool Characteristics: Nutritional Diagnosis Nutritional Risk Acuity 2: Chronic Renal Failure Nutritional Risk Acuity 3: Nutrit Anemia, Cancer, GERD, COPD Unstable Past Medical History: Septic bursitis, parolysmal pupraventricular tachycardia, anemia, GERD, non-pitted edema of LF foot, prostate cancer, depression, sleep apnea, COPD, CKD stage 3, hyponatremia, skin cancer, prostate cancer, acute urinary retention Nutritional Acuity: 2-Moderate Nutrition Diagnosis: Inadequate Vit/Min Intake Nutrition Etiology: Physiological Causes Nutrition Problem/Etiology/Sym: Inadequate Na intake related to physiological causes as evidence by Na (130) Energy Requirement: 1885 ([place] Adj calories. BMI >27.5 X AF 1.3) Protein Requirement: 81 (.8g/kg ) Fluid Requirement: 1885 (1ml/kcal) Diet Type: Diet as Tolerated VINNIE/REG Nutrition Intervention: Cont diet as ordered, Encourage intake Nutrition Monitoring & Eval Nutrition Goals: Eat 75-100% Meal RD Patient Assessment Time: [address] Assessment Type: RD Assessment Patient Nutrition Acuity: 2-Moderate Follow Up Date: Dec 11, 2017 Nutritional Comment: 12/07 Pt admitted for hyponatremia. Pt came in with severe abdominal pain and urinary retention. Pt is on regular diet with 100% oral intake. Pt has had #3 wt gain since admission, probably due to edema in LE and fluid urinary retention. Pt schilling slow Na (130) and elevated BUN (24) and creatinine (1.8). Pt is on salt tablet for hyponatremia. Will continue to monitor pt progress, labs and encourage intake. -CLARITA ORTIZ Dec 07, 2017 10:12
--- NOTE | 2017-12-07 14:56 | Miscellaneous Provider Note ---
Miscellaneous Provider Note Note Talked with patient. Will leave Nguyen catheter in place and have Dr. Bangura see him for further recommendations. Sodium this am is already improved to 130. Will recheck labs in am. KELLIE LOJA MD Dec 07, 2017 14:56
[2017-12-07 16:27] VITALS: BP 111/58
[2017-12-07] MEDS: ACETAMINOPHEN 325 MG TAB PO PRN (16:30)
[2017-12-07] MEDS ORDERED: LEVOFLOXACIN 750 MG TAB PO SCH (17:00)
[2017-12-07 19:39] VITALS: BP 109/72
[2017-12-07] MEDS: BETHANECHOL CHL 25 MG TAB PO SCH (20:56)
[2017-12-07] MEDS: TAMSULOSIN HCL 0.4 MG CAP PO SCH (20:56)
[2017-12-08 02:44] VITALS: BP 130/57
[2017-12-08 07:55] LABS: PLATELET COUNT, AUTOMATED 78 K/uL (150-450)
[2017-12-08] MEDS: BETHANECHOL CHL 25 MG TAB PO SCH ×3 (09:00→20:18)
[2017-12-08] MEDS: ACETAMINOPHEN 325 MG TAB PO PRN (09:00)
[2017-12-08] MEDS: PANTOPRAZOLE SOD 20 MG TABEC PO SCH (09:00)
--- NOTE | 2017-12-08 10:40 | Hospitalist Progress Note ---
Subjective Progress Notes Subjective This patient was admitted for difficulty urinating. He had no acute events overnight. Patient Complains of: Cardiovascular: No: Chest Pain Respiratory: No: Shortness of Breath Physical Exam Vital Signs Date Time Temp Pulse Resp B/P (MAP) Pulse Ox O2 Delivery O2 Flow Rate FiO2 12/08/17 07:47 99.1 88 18 98 Nasal Cannula 3.0 12/08/17 02:44 130/57 (81) 30.0 Intake and Output 12/09/17 07:00 Intake Total 240 ml Balance 240 ml Intake Oral 240 ml Cardiovascular: Regular Rate and Rhythm Respiratory: Clear to Auscultation Result Diagram: 12/08/17 0552 12/08/17 0552 Assessment and Plan Problems: (1) Hyponatremia Status: Acute Assessment & Plan: Resolving with IV fluids. (2) Acute urinary retention Status: Acute Assessment & Plan: He has a history of prostate cancer with resection and bilateral orchiectomy. A Nguyen catheter was placed, but now has been removed for a voiding trial. Dr. Bangura has been managing this. (3) Edema Status: Chronic Assessment & Plan: He does have chronic lower extremity edema. (4) Anemia Onset Date: 11/20/2014 Status: Chronic Assessment & Plan: Related to anemia of chronic disease. He is followed by Hematology. He gets monthly Aranesp when Hgb <11. (5) Osteomyelitis of left hip Status: Chronic Assessment & Plan: He is on chronic suppressive Levofloxacin 750mg every other day, which will be continued. He is able to ambulate with a walker, but uses a power chair. There is concern that hardware in the femur is starting to push through the bone, so is minimizing activity. (6) GERD (gastroesophageal reflux disease) Status: Chronic Assessment & Plan: Continue chronic Protonix. (7) NICOLETTE treated with BiPAP Status: Chronic (8) CKD (chronic kidney disease) stage 3, GFR 30-59 ml/min Status: Chronic (9) Thrombocytopenia Status: Chronic Exam Sepsis Risk: No Definite Risk JLUIS WOODARD DO Dec 08, 2017 10:40
[2017-12-08 10:46] VITALS: BP 107/58
[2017-12-08] MEDS ORDERED: ALBUTEROL 2.5 MG/3 ML NEB NEB PRN (11:15)
[2017-12-08] MEDS ORDERED: ALBUTEROL 2.5 MG/3 ML NEB ONE (11:19)
[2017-12-08 15:57] VITALS: BP 126/62
[2017-12-08] MEDS: TAMSULOSIN HCL 0.4 MG CAP PO SCH (20:18)
[2017-12-08 21:57] VITALS: BP 142/67
[2017-12-09 08:14] VITALS: BP 103/77
[2017-12-09] MEDS: PANTOPRAZOLE SOD 20 MG TABEC PO SCH (08:30)
[2017-12-09] MEDS: BETHANECHOL CHL 25 MG TAB PO SCH (08:30)
[2017-12-09] MEDS ORDERED: BETH25TA29 PO (10:28)
[2017-12-09] MEDS ORDERED: TAMS0.4C70 PO (10:28)
--- NOTE | 2017-12-09 10:36 | Hospitalist Depart ---
Discharge Summary Reason for Hosp/Final Diag: (1) Hyponatremia Status: Acute Hospital Course & Plan: Unsure as to etiology. This did resolve with IV fluids. He will need periodic check of his lab to monitor. (2) Acute urinary retention Status: Acute Hospital Course & Plan: He has a history of prostate cancer with resection and bilateral orchiectomy. A Nguyen catheter was placed - Dr. Ann has been managing this. He was given a trial of voiding after starting Flomax 0.4mg daily and bethanechol 25mg TID. He was able to void with minimal difficulties. He will be followed closely by Dr. Ann. (3) Edema Status: Chronic Hospital Course & Plan: He does have chronic lower extremity edema. No changes at this time. (4) Anemia Onset Date: 11/20/2014 Status: Chronic Hospital Course & Plan: Related to anemia of chronic disease. He is followed by Hematology. He gets monthly Aranesp when Hgb <11. His Hgb/Hct were noted to be below threshold. He was given Aranesp 200mcg SQ prior to discharge. (5) Osteomyelitis of left hip Status: Chronic Hospital Course & Plan: He is on chronic suppressive Levofloxacin 750mg every other day, which will be continued. He is able to ambulate with a walker, but uses a power chair. There is concern that hardware in the femur is starting to push through the bone, so he has been minimizing activity. (6) GERD (gastroesophageal reflux disease) Status: Chronic Hospital Course & Plan: Continue chronic Protonix. (7) NICOLETTE treated with BiPAP Status: Chronic (8) CKD (chronic kidney disease) stage 3, GFR 30-59 ml/min Status: Chronic Hospital Course & Plan: Stable with creatinine 1.9 at the time of discharge. (9) Thrombocytopenia Status: Chronic Hospital Course & Plan: Stable with platelet count of 78K, which is at lower end of his previous levels. He will need periodic check of his lab. Departure Weight (Pounds): 222 Weight (Ounces): 9.0 Result Diagram: 12/08/17 0552 12/08/17 0552 Item Value Date Time Sodium Level 125 mmol/L *L 12/06/17 Potassium Level 4.4 mmol/L 12/06/17 Chloride Level 93 mmol/L L 12/06/17 Carbon Dioxide Level 18 mmol/L L 12/06/17 Blood Urea Nitrogen 24 mg/dl H 12/06/17 Creatinine 1.70 mg/dl H 12/06/17 Glomerular Filtration Rate Calc 38.2 12/06/17 Random Glucose 111 mg/dl H 12/06/17 Lactate 0.8 mmol/L 12/06/17 Calcium Level 8.4 mg/dl 12/06/17 Total Bilirubin 0.8 mg/dl 12/06/17 Aspartate Amino Transf (AST/SGOT) 28 U/L 12/06/17 Alanine Aminotransferase (ALT/SGPT) 24 U/L 12/06/17 Alkaline Phosphatase 80 U/L 12/06/17 Total Protein 7.6 g/dl 12/06/17 Albumin 4.2 g/dl 12/06/17 Amylase Level 89 U/L 12/06/17 Lipase 56 U/L 12/06/17 White Blood Count 12.6 k/uL H 12/06/17 Hemoglobin 9.2 g/dL L 12/06/17 Hematocrit 27.0 % *L 12/06/17 Platelet Count 81 K/uL L 12/06/17 Urine Color Yolanda 12/07/176 Urine Clarity Clear 12/07/176 Urine pH 7.0 pH 12/07/176 Urine Specific [place] 1.010 12/07/176 Urine Protein 30 mg/dL 12/07/176 Urine Glucose (UA) Negative mg/dL 12/07/176 Urine Ketones Negative mg/dL 12/07/176 Urine Blood Large 12/07/176 Urine Nitrite Positive H 12/07/176 Urine Bilirubin Negative 12/07/176 Urine Urobilinogen 2.0 mg/dL 12/07/176 Urine Leukocyte Esterase Negative 12/07/176 Urine RBC 344 /HPF 12/07/176 Urine WBC 7 /HPF 12/07/176 Urine Squamous Epithelial Cells Moderate /LPF H 12/07/176 Urine Bacteria Negative /HPF 12/07/176 Urine Mucus None /HPF 12/07/176 Urine Osmolality 262 mosm/K L 12/07/176 Urine Random Sodium 61 MEQ/L 12/07/176 [facility] *LIVE* [address], [place] [address] JORGE FRIAS M.D., DIRECTOR OF LABORATORY SERVICES LISA SANDHU M.D., PATHOLOGIST RUN DATE: 12/09/17 Specimen Inquiry Report PAGE 1 RUN TIME: 853 PATIENT: ALONDRA EDWARDS ACCT: [id number] LOC: [facility] U : [id number] AGE/SX: 87/M ROOM: [facility] REG : 12/07/[address]: DIALLO MUSE MD : 1930 BED: 274 DIS : STATUS: ADM IN TLOC: SPEC #: [id number] ERICK: 12/07/17 STATUS: COMP REQ #: [id number] RECD: 12/07/[address] [facility] [address]: JIM ASHTON MD SOURCE: FOLEYCATH ENTR: 12/07/17-[address]: [facility]: CULT URINE Procedure Result Verified URINE CULTURE Final 12/09/17-0854 NO GROWTH AFTER 2 DAYS Imaging PATIENT NAME: Alondra Edwards : 1930 MR: [id number] V: [id number] EXAM DATE: ORDERING PHYSICIAN: JIM ASHTON TECHNOLOGIST: Location: [facility] [place] Patient: Alondra Edwards : 1930 Visit/Account:[id number] Date of Sevice: 12/06/2017 CT of the abdomen and pelvis with contrast: Indication: Right-sided abdominal pain. Technique: Helical CT was performed through the abdomen and pelvis following IV contrast enhancement with 75 cc of Isovue-370. Multiplanar reconstructions are reviewed. One of the following dose optimization techniques was utilized in the performance of this exam: Automated exposure control; adjustment of the mA and/ or kV according to the patient's size; or use of an iterative reconstruction technique. Specific details can be referenced in the facility's radiology CT exam operational policy. Comparison: 12/04/2017 Lower lung yang: There are minimal linear atelectatic opacities at both lung bases. There is minimal fluid in the right pleural space. There is chronic right pleural calcification. Liver: Unremarkable and unchanged. There is uniform contrast enhancement. Gallbladder/biliary tree: There is persistent evidence of small stones in the dependent portion of the gallbladder lumen. There is increased distention of the gallbladder, but there are no signs of inflammation or fluid around the wall. The bile ducts are not dilated. Pancreas: Normal in size, shape, and density. Spleen: Normal in size, shape, and density. Adrenal glands: Within normal limits. Kidneys/urinary bladder: The kidneys are normal in size, shape, and density. There is a small simple cyst in the right kidney. There is now evidence of mild dilatation of the bilateral intrarenal collecting structures and bilateral ureters. No ureteral calculi are identified. There is mild/moderate distention of the urinary bladder. The Nguyen catheter is no longer present. The bilateral ureteral dilatation is most likely related to bladder distention. Intestinal structures: Unremarkable, as visualized. No acute interval change. There is moderate diverticulosis in the sigmoid colon. There are no signs of acute diverticulitis. Pelvis: Unchanged. Aorta and vascular structures: There are stable atherosclerotic changes in the aorta, mesenteric, renal, and iliac arteries. Ascites or fluid collections: None seen. Skeletal structures: There are stable degenerative changes in the spine and pelvis. The left hip prosthesis appears unremarkable. No acute skeletal deformity is identified. Impression: Bladder and bilateral urinary tract distention. No urinary tract calculi are identified. Other findings, as described above. Report Dictated By: Umesh Markham MD at 12/06/2017 11:44 PM Report E-Signed By: Umesh Markham MD at 12/06/2017 11:58 PM WSN:[id number] Condition: Improved Discharge: Assisted Living Follow-Up Labs: Other (cbc, bmp in 1-2 weeks) Time Spent: > 30 min Discharge Instructions Home Meds Active Scripts Bethanechol Chloride (BETHANECHOL CHLORIDE) 25 Mg Tablet, 25 MG PO TID for 30 Days, #90 TAB 1 Refill Prov:PHOEBE LOJA MD 12/09/17 Tamsulosin Hcl (TAMSULOSIN HCL) 0.4 Mg Cap.er.24h, 0.4 MG PO QHS for 30 Days, # 30 CAP 1 Refill Prov:PHOEBE LOJA MD 12/09/17 Pantoprazole Sodium (PANTOPRAZOLE SODIUM) 20 Mg Tablet.dr, 1 TAB PO QDAY, #90 TAB.SR 3 Refills Prov:RONNIE PACHECO APRN TRAINING EXECUTIVE-C 10/23/17 Bipap Home (BIPAP HOME) Inha, EACH QHS, #1 Prov:RONNIE PACHECO APRN TRAINING EXECUTIVE-C 09/10/15 Reported Medications Magnesium Hydroxide (MILK OF MAGNESIA) 400 Mg/5 Ml Oral.susp, 400 MG PO DAILY Y for CONSTIPATION, BOTTLE 12/07/17 Polyethylene Glycol 3350 (MIRALAX) 17 Gm Powd.pack, 17 GM PO DAILY Y for CONSTIPATION, PKT Take 1/2 capful by mouth once daily as needed for constipation. 12/07/17 Darbepoetin Gabriel In Polysorbat (ARANESP) 100 Mcg/1 Ml Vial, 200 MCG IJ Q4WK Y for anemia, VIAL 12/07/17 Denosumab (PROLIA) 60 Mg/1 Ml Injs, 60 MG SUBQ Injection every 6 months. 12/07/17 Levofloxacin 750 Mg Tab (LEVAQUIN 750 MG TAB) 750 Mg Tablet, 1 TAB PO QODAY 05/02/16 Oxygen (OXYGEN) Inha, 3 L INH cont, L 03/10/16 Bipap Home (BIPAP HOME) Inha, HS with oxygen 3 liters 03/10/16 Sodium Chloride (SALINE NASAL SPRAY) 30 Ml [place], 2 SPR NS Q4H Y for nasal congestion, SPRAY 03/04/16 Discontinued Reported Medications Ibuprofen (IBUPROFEN) 200 Mg Capsule, 1 CAP PO Q4-6H Y for PAIN, CAPSULE 12/07/17 Lactase (Lactaid) 3,000 Unit Tablet, TIDCF 12/07/17 Ascorbic Acid (VITAMIN C) 500 Mg Tab.chew, 1 TAB PO BID, TAB.CHEW 03/04/16 Denosumab (PROLIA) 60 Mg/1 Ml Injs, 60 MG SUBQ Q6MO 01/13/16 Lactase (LACTAID FAST ACT) 9,000 Unit Tab.chew, 9000 UNIT PO Y for DISCOMFORT, TAB.CHEW 07/23/15 Calcium Carb & Cit/Vitamin D3 (CALCIUM + D3 ER TABLET) 1 Each Tablet.er, 1 EACH PO BID 07/23/15 Multivitamin (MULTI VITAMIN DAILY) 1 Each Tablet, 1 EACH PO DAILY 07/23/15 Discontinued Scripts Tiotropium [place] (SPIRIVA) 18 Mcg/Cap Inh, 1 CAP INH DAILY, #30 CAP 11 Refills Prov:RONNIE PACHECO APRN TRAINING EXECUTIVE-C 11/02/17 Polyethylene Glycol 3350 (MIRALAX) 17 Gm Powd.pack, 17 GM PO QM,W,F, #1 BOTTLE 5 Refills Prov:MARC OAAdriannaRONNIE GUAJARDO APRNP-C 08/04/17 [motorized wheelchair] No Conflict Check Prov:MARCO A-RONNIE GUAJARDO APRNP-C 07/14/17 Triamcinolone Acetonide (Nasacort) 10.8 Ml [place], 2 SPRAY NA DAILY, #1 BOTTLE 11 Refills Prov:RONNIE PACHECO APRNP-C 05/15/17 Aspirin (ASPIRIN EC) 81 Mg Tablet.dr, 1 TAB PO QDAY, #30 TAB 1 Refill Prov:VALE BUTT MD 05/03/16 Darbepoetin Gabriel In Polysorbat (ARANESP) 200 Mcg/1 Ml Vial, 200 MCG IJ q 2 weeks , #1 VIAL Prov:RENU CORDON TRAINING EXECUTIVE-BC, ONC 12/02/15 Follow up Referrals: Urology with Alondra Ann Md Diet: Regular Activity: As Tolerated, With Walker, No Exertion Special Instructions: Follow up with Dr. Ann in next 5-7 days. Follow up with Sky DAMON in next 1-2 weeks. Copies to: ALONDRA ANN MD; SKY BECKMAN DNP, TRAINING EXECUTIVE-BC Venous Thromboembolism Antithrombotics Is Pt On Any Antithrombotics?: No PHOEBE LOJA MD Dec 09, 2017 10:36
[2017-12-09] MEDS ORDERED: DARBEPOETIN ALFA SC ONE (11:00)
[2017-12-09 12:05] VITALS: BP 144/72
== END 2017-12-09 13:03 | disposition home or self-care (01) | DRG 641 ==
LOC: ER 21:16 → MED 12-07 01:08
PROVIDERS: ADMIT Internal Medicine; ATTEND Internal Medicine
PROC: 5A09357 Assistance with Respiratory Ventilation, Less than 24 Consecutive Hours, Continuous Positive Airway Pressure (ICD-10-PCS; principal; 2017-12-07)
DX: E87.1 Hypo-osmolality and hyponatremia (principal); M86.652 Other chronic osteomyelitis, left thigh; R33.9 Retention of urine, unspecified; R60.0 Localized edema; N18.3 Chronic kidney disease, stage 3 (moderate); D63.1 Anemia in chronic kidney disease; K21.9 Gastro-esophageal reflux disease without esophagitis; G47.33 Obstructive sleep apnea (adult) (pediatric); J43.9 Emphysema, unspecified; D69.6 Thrombocytopenia, unspecified; Z88.1 Allergy status to other antibiotic agents; Z88.8 Allergy status to other drugs, medicaments and biological substances; Z99.81 Dependence on supplemental oxygen; Z90.79 Acquired absence of other genital organ(s); Z96.662 Presence of left artificial ankle joint; Z85.46 Personal history of malignant neoplasm of prostate; Z87.891 Personal history of nicotine dependence; Z85.828 Personal history of other malignant neoplasm of skin
CPT/HCPCS: 36415; 74177; 81001; 82040; 82150; 82247; 82310; 82374; 82435; 82565; 82947; 83605; 83690; 83930; 83935; 84075; 84132; 84155; 84295; 84300; 84450; 84460; 84520; 85025; 87088; 94640; 94660; 96361; 96374; 96375; 96376; 97161; 97165; 99284; A4338; J1170; J2270; J2405; J7030; J7613; Q9967

== ENCOUNTER → 2017-12-06 | Outpatient (CLI) | payer MEDICARE, OTHER, MEDICAID ==
[2015-07-22 16:00] VITALS: BMI 31.4
[~2017-12-06] MED LIST changes: +BETH25TA29 PO; +IBUP200C71 PO; +TAMS0.4C70 PO
== END ==
LOC: AMB 20:45
PROVIDERS: ATTEND Nurse Practitioner
DX: R10.30 Lower abdominal pain, unspecified (principal); I10 Essential (primary) hypertension
CPT/HCPCS: A0425; A0427

== ENCOUNTER → 2017-12-10 | Outpatient (REF) | payer MEDICARE, OTHER, MEDICAID ==
[2015-07-22 16:00] VITALS: BMI 31.4
[~2017-12-10] MED LIST changes: +BETH25TA29 PO; +IBUP200C71 PO; +TAMS0.4C70 PO; +[UNRECOGNIZED DRUG - CODE]; +[UNRECOGNIZED DRUG - CODE] IJ
== END ==
LOC: ZZSPRING 19:06
DX: R33.9 Retention of urine, unspecified (principal)
CPT/HCPCS: 81001

== ENCOUNTER → 2017-12-11 | Outpatient (CLI) | payer MEDICARE, OTHER, MEDICAID ==
[2015-07-22 16:00] VITALS: BMI 31.4
== END ==
LOC: SPU 15:11
DX: N30.01 Acute cystitis with hematuria (principal)
CPT/HCPCS: 81001; 87088

== ENCOUNTER 2017-12-25 10:18 | Emergency (ER) | payer MEDICARE, OTHER, MEDICAID ==
[2015-07-22 16:00] VITALS: Wt 96.2 kg
[2017-12-25] MEDS ORDERED: MAG-65 (11:01)
[2017-12-25] MEDS ORDERED: ACET-1966 PO (11:01)
[2017-12-25] MEDS ORDERED: ASPI-757 PO (11:01)
[2017-12-25] MEDS ORDERED: CALC-520 PO (11:01)
[2017-12-25] MEDS ORDERED: DEXT237L (11:01)
--- NOTE | 2017-12-25 11:02 | ER Report ---
History and Physical Time Seen By MD: 11:02 Hx. of Stated Complaint: PATIENT AND DAUGHTER REPORT THAT HE HAS BEEN HAVING RUQ PAIN FOR THE LAST 2 MONTHS. DAUGHTER REPORTS THAT THE LAST TIME HE WAS HERE, HE HAD A CT THAT SHOWED A GALLSTONE. HPI/ROS CHIEF COMPLAINT: Right upper quadrant abdominal pain HISTORY OF PRESENT ILLNESS: 87-year-old male patient presents to emergency room with complaint of right upper outer and abdominal pain. Patient states the pain is worse with any type of activity. Patient states that when he lays down the typically the pain seems to resolve after 10-15 minutes. States this been going on intermittently for the last couple of months. He was seen here couple weeks ago and was told that he had small gallstones in his gallbladder. They are concerned that he may be having a cholecystitis secondary to that. The patient states he is not had any fevers, chills, nausea, vomiting or diarrhea. Patient states that with any type of movement there is significant amounts of pain. He rates his pain currently zero out of 10 as he has been lying down for several minutes. Patient has not taken any medication for this. REVIEW OF SYSTEMS: Respiratory: No cough, no dyspnea. Cardiovascular: No chest pain, no palpitations. Gastrointestinal: As noted above Musculoskeletal: No back pain. Allergies: Coded Allergies: amiodarone (Verified Allergy, Unknown, 12/06/17) vancomycin (Verified Allergy, Unknown, 12/06/17) mirtazapine (Verified Adverse Reaction, Intermediate, MENTAL STATUS CHANGES, 12/06/17) Per pt and pt's daughter remeron caused increased irritability and decreased pscyhological coping skills. Home Meds Active Scripts Hydrocodone Bit/Acetaminophen (HYDROCODON-ACETAMINOPHEN 5-325) 1 Each Tablet, 1 EACH PO Q4-6H Y for PAIN, #8 TAB Prov:EVETTE LOBO 12/25/17 Prednisone (PREDNISONE) 20 Mg Tablet, 40 MG PO DAILY, #8 TAB Prov:EVETTE LOBO 12/25/17 Polyethylene Glycol 3350 (MIRALAX) 17 Gm Powd.pack, 8.5 GM PO DAILY Y for CONSTIPATION, #1 BOTTLE 5 Refills Prov:VALE BUTT MD 12/12/17 Bethanechol Chloride (BETHANECHOL CHLORIDE) 25 Mg Tablet, 25 MG PO TID for 30 Days, #90 TAB 1 Refill Prov:PHOEBE LOJA MD 12/09/17 Tamsulosin Hcl (TAMSULOSIN HCL) 0.4 Mg Cap.er.24h, 0.4 MG PO QHS for 30 Days, # 30 CAP 1 Refill Prov:PHOEBE LOJA MD 12/09/17 Pantoprazole Sodium (PANTOPRAZOLE SODIUM) 20 Mg Tablet.dr, 1 TAB PO QDAY, #90 TAB.SR 3 Refills Prov:RONNIE PACHECO APRN COIN MACHINE ASSEMBLER-C 10/23/17 Bipap Home (BIPAP HOME) Inha, EACH QHS, #1 Prov:RONNIE PACHECO APRN COIN MACHINE ASSEMBLER-C 09/10/15 Reported Medications Dextromethorphan Hb/Doxylamine (Robitussin Nighttime Cough Dm) 30 Mg-12.5 Mg/10 Ml Liquid 12/25/17 Mag Hydrox/Aluminum Hyd/Simeth (Maalox Advanced Suspension) 200 Mg-200 Mg-20 Mg/ 5 Ml Oral.susp 12/25/17 Aspirin (ASPIRIN) 325 Mg Tablet, 325 MG PO PRN Y for CHEST PAIN, TAB 12/25/17 Calcium Carbonate (TUMS X-STR) 300 Mg Tab.chew, 750 MG PO Q2H, TAB.CHEW 12/25/17 Acetaminophen (TYLENOL) 325 Mg Tablet, 325 MG PO Q4H, TAB 12/25/17 Magnesium Hydroxide (MILK OF MAGNESIA) 400 Mg/5 Ml Oral.susp, 400 MG PO DAILY Y for CONSTIPATION, BOTTLE 12/07/17 Levofloxacin 750 Mg Tab (LEVAQUIN 750 MG TAB) 750 Mg Tablet, 1 TAB PO QODAY 05/02/16 Oxygen (OXYGEN) Inha, 3 L INH cont, L 03/10/16 Bipap Home (BIPAP HOME) Inha, HS with oxygen 3 liters 03/10/16 Sodium Chloride (SALINE NASAL SPRAY) 30 Ml Porter, 2 SPR NS Q4H Y for nasal congestion, SPRAY 03/04/16 Discontinued Reported Medications Darbepoetin Gabriel In Polysorbat (ARANESP) 100 Mcg/1 Ml Vial, 200 MCG IJ Q4WK Y for anemia, VIAL 12/07/17 Denosumab (PROLIA) 60 Mg/1 Ml Injs, 60 MG SUBQ Injection every 6 months. 12/07/17 Past Medical/Surgical History Patient has a past medical history of supraventricular tachycardia, A. fib, sleep apnea, emphysema, COPD, reflux, hematuria, arthritis, hip fracture, stenosis the back, hard of hearing, skin cancer, alcohol use, prostate cancer. 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 Patient has a family medical history of cancer, diabetes. Reviewed Nurses Notes: Yes Hx Smoking: Yes Smoking Status: Former Smoker Exposure to Second Hand Smoke?: No Hx Substance Use Disorder: No Hx Alcohol Use: Yes Constitutional Vital Sign - Last 24 Hours 12/25/17 12/25/17 12/25/17 12/25/17 10:18 10:24 10:26 10:30 Temp 97.5 Pulse ??? 84 Resp 20 B/P (MAP) 139/63 139/63 (88) 131/62 (85) Pulse Ox 94 O2 Delivery Room Air 12/25/17 12/25/17 12/25/17 12/25/17 10:48 11:18 11:30 11:48 Pulse 72 76 87 B/P (MAP) 129/65 (86) Pulse Ox 99 99 96 12/25/17 12/25/17 12/25/17 12/25/17 11:53 12:00 12:08 12:23 Pulse 77 78 ??? B/P (MAP) ???/??? (1665) Pulse Ox 98 98 98 12/25/17 12/25/17 12/25/17 12/25/17 12:30 12:30 12:38 12:53 Pulse 77 92 B/P (MAP) ???/??? (4351) 130/69 (89) Pulse Ox 96 97 12/25/17 12/25/17 12/25/17 12/25/17 13:08 13:17 13:23 13:30 Pulse 79 91 B/P (MAP) 138/67 (90) 162/76 (104) Pulse Ox 95 95 12/25/17 12/25/17 12/25/17 12/25/17 14:15 14:30 15:00 15:30 Pulse 94 ? 95 B/P (MAP) 150/69 (96) 142/66 (91) 155/79 (104) Pulse Ox 95 89 12/25/17 12/25/17 12/25/17 12/25/17 15:45 16:00 16:15 16:30 Pulse 94 ? B/P (MAP) ???/??? (1665) ???/??? (1665) Pulse Ox 97 12/25/17 12/25/17 12/25/17 12/25/17 17:30 17:35 18:00 18:05 Pulse ??? 84 84 B/P (MAP) 146/68 (94) 149/67 (94) Pulse Ox 97 97 12/25/17 12/25/17 12/25/17 18:30 18:35 19:05 Pulse 80 81 B/P (MAP) 144/65 (91) 136/87 (103) Pulse Ox 98 Physical Exam General Appearance: The patient is alert, has no immediate need for airway protection and no current signs of toxicity. Respiratory: Chest is non tender, lungs are clear to auscultation. Cardiac: regular rate and rhythm Gastrointestinal: Abdomen is soft and tender in the right upper quadrant, no masses, bowel sounds normal. Musculoskeletal: Neck: Neck is supple and non tender. Extremities have full range of motion and are non tender. Skin: No rashes or lesions. DIFFERENTIAL DIAGNOSIS: After history and physical exam differential diagnosis was considered for abdominal pain including but not limited to appendicitis, cholecystitis, gastritis and urinary tract infection. Medical Decision Making Data Points Result Diagram: 12/25/17 1056 12/25/17 1056 Laboratory Hematology Test 12/25/17 10:56 12/25/17 12:04 Red Blood Count 3.39 M/uL (4.00-5.60) Mean Corpuscular Volume 78.2 fL (80.0-96.0) Mean Corpuscular Hemoglobin 25.7 pg (26.0-33.0) Mean Corpuscular Hemoglobin Concent 32.9 g/dL (32.0-36.0) Red Cell Distribution Width 18.7 % (11.5-14.5) Mean Platelet Volume 8.4 fL (7.2-11.1) Neutrophils (%) (Auto) 53.9 % (39.4-72.5) Lymphocytes (%) (Auto) 19.3 % (17.6-49.6) Monocytes (%) (Auto) 25.0 % (4.1-12.4) Eosinophils (%) (Auto) 1.3 % (0.4-6.7) Basophils (%) (Auto) 0.5 % (0.3-1.4) Nucleated RBC Relative Count (auto) 0.0 /100WBC Neutrophils # (Auto) 3.1 K/uL (2.0-7.4) Lymphocytes # (Auto) 1.1 K/uL (1.3-3.6) Monocytes # (Auto) 1.4 K/uL (0.3-1.0) Eosinophils # (Auto) 0.1 K/uL (0.0-0.5) Basophils # (Auto) 0.0 K/uL (0.0-0.1) Nucleated RBC Absolute Count (auto) 0.00 K/uL Peripheral Blood Smear Yes Y/N Sodium Level 134 mmol/L (137-145) Potassium Level 4.5 mmol/L (3.5-5.0) Chloride Level 103 mmol/L (98-107) Carbon Dioxide Level 20 mmol/L (22-30) Blood Urea Nitrogen 26 mg/dl (9-21) Creatinine 2.00 mg/dl (0.66-1.25) Glomerular Filtration Rate Calc 31.7 Random Glucose 130 mg/dl (75-110) Calcium Level 8.4 mg/dl (8.4-10.2) Total Bilirubin 0.4 mg/dl (0.2-1.3) Aspartate Amino Transf (AST/SGOT) 23 U/L (0-35) Alanine Aminotransferase (ALT/SGPT) 20 U/L (0-56) Alkaline Phosphatase 72 U/L (0-126) Total Protein 7.2 g/dl (6.3-8.2) Albumin 4.0 g/dl (3.5-5.0) Lipase 79 U/L (23-300) Urine Color Straw Urine Clarity Clear Urine pH 7.0 pH (4.8-9.5) Urine Specific [place] 1.003 Urine Protein Negative mg/dL (NEGATIVE) Urine Glucose (UA) Negative mg/dL (NEGATIVE) Urine Ketones Negative mg/dL (NEGATIVE) Urine Blood Small (NEGATIVE) Urine Nitrite Negative (NEGATIVE) Urine Bilirubin Negative (NEGATIVE) Urine Urobilinogen Negative mg/dL (0.2-1.9) Urine Leukocyte Esterase Negative (NEGATIVE) Urine RBC 1 /HPF (0-2/HPF) Urine WBC 2 /HPF (0-5/HPF) Urine Squamous Epithelial Cells Few /LPF (</=FEW) Urine Bacteria Negative /HPF (NONE-FEW) Urine Mucus None /HPF (NONE-FEW) Chemistry Test 12/25/17 10:56 12/25/17 12:04 White Blood Count 5.8 k/uL (4.5-11.0) Red Blood Count 3.39 M/uL (4.00-5.60) Hemoglobin 8.7 g/dL (14.0-18.0) Hematocrit 26.5 % (42.0-52.0) Mean Corpuscular Volume 78.2 fL (80.0-96.0) Mean Corpuscular Hemoglobin 25.7 pg (26.0-33.0) Mean Corpuscular Hemoglobin Concent 32.9 g/dL (32.0-36.0) Red Cell Distribution Width 18.7 % (11.5-14.5) Platelet Count 129 K/uL (150-450) Mean Platelet Volume 8.4 fL (7.2-11.1) Neutrophils (%) (Auto) 53.9 % (39.4-72.5) Lymphocytes (%) (Auto) 19.3 % (17.6-49.6) Monocytes (%) (Auto) 25.0 % (4.1-12.4) Eosinophils (%) (Auto) 1.3 % (0.4-6.7) Basophils (%) (Auto) 0.5 % (0.3-1.4) Nucleated RBC Relative Count (auto) 0.0 /100WBC Neutrophils # (Auto) 3.1 K/uL (2.0-7.4) Lymphocytes # (Auto) 1.1 K/uL (1.3-3.6) Monocytes # (Auto) 1.4 K/uL (0.3-1.0) Eosinophils # (Auto) 0.1 K/uL (0.0-0.5) Basophils # (Auto) 0.0 K/uL (0.0-0.1) Nucleated RBC Absolute Count (auto) 0.00 K/uL Peripheral Blood Smear Yes Y/N Glomerular Filtration Rate Calc 31.7 Calcium Level 8.4 mg/dl (8.4-10.2) Total Bilirubin 0.4 mg/dl (0.2-1.3) Aspartate Amino Transf (AST/SGOT) 23 U/L (0-35) Alanine Aminotransferase (ALT/SGPT) 20 U/L (0-56) Alkaline Phosphatase 72 U/L (0-126) Total Protein 7.2 g/dl (6.3-8.2) Albumin 4.0 g/dl (3.5-5.0) Lipase 79 U/L (23-300) Urine Color Straw Urine Clarity Clear Urine pH 7.0 pH (4.8-9.5) Urine Specific [place] 1.003 Urine Protein Negative mg/dL (NEGATIVE) Urine Glucose (UA) Negative mg/dL (NEGATIVE) Urine Ketones Negative mg/dL (NEGATIVE) Urine Blood Small (NEGATIVE) Urine Nitrite Negative (NEGATIVE) Urine Bilirubin Negative (NEGATIVE) Urine Urobilinogen Negative mg/dL (0.2-1.9) Urine Leukocyte Esterase Negative (NEGATIVE) Urine RBC 1 /HPF (0-2/HPF) Urine WBC 2 /HPF (0-5/HPF) Urine Squamous Epithelial Cells Few /LPF (</=FEW) Urine Bacteria Negative /HPF (NONE-FEW) Urine Mucus None /HPF (NONE-FEW) Urinalysis Test 12/25/17 12:04 Urine Color Straw Urine Clarity Clear Urine pH 7.0 pH (4.8-9.5) Urine Specific [place] 1.003 Urine Protein Negative mg/dL (NEGATIVE) Urine Glucose (UA) Negative mg/dL (NEGATIVE) Urine Ketones Negative mg/dL (NEGATIVE) Urine Blood Small (NEGATIVE) Urine Nitrite Negative (NEGATIVE) Urine Bilirubin Negative (NEGATIVE) Urine Urobilinogen Negative mg/dL (0.2-1.9) Urine Leukocyte Esterase Negative (NEGATIVE) Urine RBC 1 /HPF (0-2/HPF) Urine WBC 2 /HPF (0-5/HPF) Urine Squamous Epithelial Cells Few /LPF (</=FEW) Urine Bacteria Negative /HPF (NONE-FEW) Urine Mucus None /HPF (NONE-FEW) EKG/Imaging Imaging EXAMINATION: Right upper quadrant abdominal ultrasound HISTORY: Right upper quadrant abdominal pain. COMPARISON: CT of the abdomen and pelvis from 12/06/2017. FINDINGS: Gallbladder: There are gallstones within the gallbladder. Gallbladder wall thickness is normal measuring 2.8 mm. The patient was in the supine position examination of the gallbladder was performed between the rib spaces. When examining the patient in the lateral decubitus position, the patient was tender in the region of the gallbladder, however, a right kidney cyst was also adjacent to the gallbladder in this position. Liver: Liver was normal echogenicity. The liver measured 10.9 cm in sagittal length. The surface of the liver is mildly lobulated. The portal vein is patent. Common bile duct: 4.1 mm in diameter. Pancreas: Negative. Right kidney: Normal in size and echogenicity, measuring 11.4 cm in length. No hydronephrosis. There is a cyst in the lower pole of the right kidney measuring 3.6 x 3.2 x 3.1 cm. Upper abdominal aorta and IVC: Patent. Ascites: None. IMPRESSION: Cholelithiasis. The patient was tender over the gallbladder during the examination suggestive of cholecystitis, however, the database engineer noted that a right kidney cyst was also adjacent to the gallbladder during the examination when tenderness was noted, so tenderness related to pressure on the kidney cyst would not be excluded. Report Dictated By: Parish Gonzalez MD at 12/25/2017 12:17 PM Report E-Signed By: Parish Gonzalez MD at 12/25/2017 12:40 PM RIBS RIGHT, CHEST PA AND LAT INDICATION: pain COMPARISON: 05/15/2017 FINDINGS: Heart size within normal limits. There is no focal infiltrate or lobar consolidation. There is no pneumothorax or pleural effusion. No acute rib fracture is identified on the right. There is a healed posterior right 10th fracture. IMPRESSION: 1. No acute cardiopulmonary process. 2. Negative right rib series Report Dictated By: Sebastian Farias at 12/25/2017 2:18 PM Report E-Signed By: Sebastian Farias at 12/25/2017 3:01 PM EXAMINATION: Thoracic spine MRI without IV contrast HISTORY: Sclerotic lesion on T9. COMPARISON: CT of the abdomen and pelvis from 12/06/2017. CTA of the chest from 10/06/2015. TECHNIQUE: Multi-planar, multi-sequence thoracic spine MRI was performed without intravenous contrast administration. FINDINGS: There is unchanged mild central height loss of the T9 vertebral body. Unchanged moderate chronic compression deformity of T12. Moderate to severe compression deformity of T5 is increased since 10/06/2015. There is slight retropulsion of bone from the T5 vertebral body into the ventral spinal canal which slightly indents the ventral thecal sac. Mild compression deformities of T3 and T4 appear similar to previous examination. Moderate compression deformity of T6 is unchanged. Laminectomy defect at T12. Alignment: Negative. Vertebral marrow signal: Mild heterogeneous signal intensity in the marrow of the T9 vertebral body. There is mild patchy T2 hyperintense signal in the T9 vertebral body. Paravertebral soft tissues: Negative. Thoracic cord: Negative. Disc Spaces: No central spinal canal stenosis. IMPRESSION: Unchanged mild compression deformity of the T9 vertebral body. There is benign- appearing mild heterogeneous signal intensity in the T9 vertebral body without discrete mass. 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 There is slight retropulsion of bone from the T5 vertebral body into the ventral spinal canal which slightly indents the ventral thecal sac. Chronic compression deformities of T3, T4, T6, and T12 are unchanged. Report Dictated By: Parish Gonzalez MD at 12/25/2017 6:07 PM Report E-Signed By: Parish Gonzalez MD at 12/25/2017 6:28 PM ABDOMEN W/O CONTRAST INDICATION: Abdominal pain. Possible muscle injury. COMPARISON: CT exam pelvis on 12/06/2017. FINDINGS: Multiplanar, multisequence images of the abdomen were obtained without contrast. The liver shows no focal abnormality. The gallbladder shows couple tiny stones in the dependent portion without other abnormality. Unchanged from previous CT scan. The common bile duct is normal size without focal abnormality. The pancreas shows no focal abnormality. The spleen, adrenal glands and left kidney are within normal limits. The right kidney does show a 2.9 cm cyst is otherwise unremarkable. The visualized gastrointestinal tract is unremarkable. No free fluid, fluid collections or areas of inflammation. No adenopathy. Lung bases are clear. Surrounding soft tissues unremarkable. Visualized spine does show degenerative changes. IMPRESSION: 1. Stable cholelithiasis.. No indication of cholecystitis. Normal common bile duct and biliary system. 2. Right renal cyst. 3. The remainder of the exam is unremarkable. Visualized spine shows degenerative changes. Report Dictated By: Preet Wu at 12/25/2017 5:29 PM Report E-Signed By: Preet Wu at 12/25/2017 5:38 PM ED Course/Re-evaluation ED Course Patient was admitted to exam room, history and physical were obtained. Differential diagnoses were considered. On examination lungs are clear, heart is regular, patient did have pain in the right upper quadrant. Patient had a positive Ayers sign. A CBC, CMP, lipase, urinalysis were obtained. Results were unremarkable. Patient did have H&H of 8.7 and 26.5, however that is stable compared with lab tests that were done on December 08. Ultrasound showed no gallbladder wall thickening, however there is some gallstones and patient had a positive Ayers sign. I did discuss the case with Dr. Conway, general surgeon, who did not feel that it was gallbladder but felt that it was more musculoskeletal. Patient's daughter felt the patient could not tolerate going back to [facility]. As a result I did discuss the case with Dr. Hunter, [facility]. He felt there is nothing to be done in the hospital. I discussed this with the patient and his daughter. He did also decided to do a right ribs series. That was negative. The daughter became frustrated feeling that the patient is going be discharged at any answers. They did request to speak with the supervising physician. Dr. Jenkins did go in and spoke with the patient and his daughter. She felt that his could possibly be that a stone is moving into the common bile duct and then backed out of the common bile duct. I then spoke with Dr. Conway again. I did request that he come in and evaluate the patient. He did come in and performed ultrasound of the patient himself. He did not feel that this was related to the gallbladder, was more concerned about musculoskeletal issues. We ultimately decided to do an MRI of the thoracic spine , as according to the CT scan that was done on December 04 there was a sclerotic lesion at T9. An MRI was also done of the abdomen looking for any edema of the muscles. The MRI of the abdomen showed a 2.9 cm cyst on the right kidney. Otherwise waiting for the MRI of the thoracic spine a did speak with Dr. Bangura, urologist, to see if the cyst on the kidney could be causing the pain. He did not feel that would be the case, although noted the patient does have some anxiety and was wondering if that could be an underlying cause. The MRI of the thoracic spine did show compression fracture at T5 with a retropulsion of a fragment that was denting the thecal sac. I believe that could very well all small he be the cause of his pain. I discussed this with the patient and his daughter. We will have him follow-up with Dr. Gandhi. They requested I speak with the on-call orthopedist. I discussed my plan with Dr. Cain, orthopedist. He did agree with my plan but recommended that I see if we could put him in a brace. We were able to find a brace in place that on him. Patient did have some improvement in comfort with transition to the wheelchair. Patient was discharged home. He did receive a dose of 40 mg of prednisone tonight in the emergency room. We will also have him take that for the next 4 days. I would like him to call and make an appointment with Dr. Gandhi tomorrow. I discussed this with the patient and his daughter and they verbalized understanding and agreement with plan. Decision to Disposition Date: Dec 25, 2017 Decision to Disposition Time: 19:00 Depart Departure Latest Vital Signs Vital Signs Date Time Temp Pulse Resp B/P (MAP) Pulse Ox O2 Delivery O2 Flow Rate FiO2 12/25/17 19:05 81 136/87 (103) 12/25/17 18:35 98 12/25/17 10:24 97.5 20 Room Air Impression: Primary Impression: Closed wedge compression fracture of T5 vertebra Condition: Condition Unchanged Disposition: HOME OR SELF-CARE Referrals: RONNIE PACHECO APRN COIN MACHINE ASSEMBLER-C (PCP) RAMONA GANDHI MD New Scripts Hydrocodone Bit/Acetaminophen (HYDROCODON-ACETAMINOPHEN 5-325) 1 Each Tablet 1 EACH PO Q4-6H Y for PAIN, #8 TAB Prov: EVETTE LOBO 12/25/17 Prednisone (PREDNISONE) 20 Mg Tablet 40 MG PO DAILY, #8 TAB Prov: EVETTE LOBO 12/25/17 Patient Instructions: Vertebral Compression Fracture (ED) Additional Instructions: Limit activity by pain. Follow up with Dr. Gandhi at [facility], call tomorrow to make an appointment. Get plenty of rest. Take the steroids as directed. Take the pain medication as needed. Wear the brace when you get up and are moving around. Return to the ER if condition worsens. Problem Qualifiers Primary Impression: Closed wedge compression fracture of T5 vertebra Encounter type: initial encounter Qualified Codes: S22.050A - Wedge compression fracture of t5-T6 vertebra, initial encounter for closed fracture EVETTE LOBO Dec 25, 2017 11:02
[2017-12-25 11:06] LABS: PLATELET COUNT, AUTOMATED 129 K/uL (150-450)
--- NOTE | 2017-12-25 12:45 | RADIOLOGY IMAGING REPORT ---
[place] [facility] [place] Alok [place] : 1930 MR: [id number] V: [id number] EXAM DATE: ORDERING PHYSICIAN: EVETTE LOBO TECHNOLOGIST: Location: [facility] [place] Patient: Alok Edwards : 1930 Visit/Account:[id number] Date of Sevice: 12/25/2017 EXAMINATION: Right upper quadrant abdominal ultrasound HISTORY: Right upper quadrant abdominal pain. COMPARISON: CT of the abdomen and pelvis from 12/06/2017. FINDINGS: Gallbladder: There are gallstones within the gallbladder. Gallbladder wall thickness is normal measur ing 2.8 mm. The patient was in the supine position examination of the gallbladder was performed betwe en the rib spaces. When examining the patient in the lateral decubitus position, the patient was tend er in the region of the gallbladder, however, a right kidney cyst was also adjacent to the gallbladde r in this position. Liver: Liver was normal echogenicity. The liver measured 10.9 cm in sagittal length. The surface of t he liver is mildly lobulated. The portal vein is patent. Common bile duct: 4.1 mm in diameter. Pancreas: Negative. Right kidney: Normal in size and echogenicity, measuring 11.4 cm in length. No hydronephrosis. Ther e is a cyst in the lower pole of the right kidney measuring 3.6 x 3.2 x 3.1 cm. Upper abdominal aorta and IVC: Patent. Ascites: None. IMPRESSION: Cholelithiasis. The patient was tender over the gallbladder during the examination suggestive of chol ecystitis, however, the lining maker noted that a right kidney cyst was also adjacent to the gallbladd er during the examination when tenderness was noted, so tenderness related to pressure on the kidney cyst would not be excluded. Report Dictated By: Parish Gonzalez MD at 12/25/2017 12:17 PM Report E-Signed By: Parish Gonzalez MD at 12/25/2017 12:40 PM WSN:[id number]
--- NOTE | 2017-12-25 15:06 | RADIOLOGY IMAGING REPORT ---
[place] [facility] [place] Alok Edwards : 1930 MR: [id number] V: [id number] EXAM DATE: ORDERING PHYSICIAN: EVETTE LOBO TECHNOLOGIST: [place] [facility] [place] Patient: Alok Edwards : 1930 Visit/Account:[id number] Date of Sevice: 12/25/2017 RIBS RIGHT, CHEST PA AND LAT INDICATION: pain COMPARISON: 05/15/2017 FINDINGS: Heart size within normal limits. There is no focal infiltrate or lobar consolidation. There is no pneumothorax or pleural effusion. No acute rib fracture is identified on the right. There is a healed posterior right 10th fracture. IMPRESSION: 1. No acute cardiopulmonary process. 2. Negative right rib series Report Dictated By: Sebastian Farias at 12/25/2017 2:18 PM Report E-Signed By: Sebastian Farias at 12/25/2017 3:01 PM WSN:[id number]
--- NOTE | 2017-12-25 15:06 | RADIOLOGY IMAGING REPORT ---
FACILITY: [facility] PATIENT NAME: Alok Edwards : 1930 MR: [id number] V: [id number] EXAM DATE: ORDERING PHYSICIAN: EVETTE LOBO TECHNOLOGIST: Location: [facility] - [place] Patient: Alok Edwards : 1930 Visit/Account:[id number] Date of Sevice: 12/25/2017 RIBS RIGHT, CHEST PA AND LAT INDICATION: pain COMPARISON: 05/15/2017 FINDINGS: Heart size within normal limits. There is no focal infiltrate or lobar consolidation. There is no pneumothorax or pleural effusion. No acute rib fracture is identified on the right. There is a healed posterior right 10th fracture. IMPRESSION: 1. No acute cardiopulmonary process. 2. Negative right rib series Report Dictated By: Sebastian Farias at 12/25/2017 2:18 PM Report E-Signed By: Sebastian Farias at 12/25/2017 3:01 PM WSN:[id number]
--- NOTE | 2017-12-25 15:58 | General Surgery Consultation ---
History of Present Illness Requesting Physician Maria G Jenkins Reason for Consult Abdominal pain Chief Complaint Abdominal pain History of Present Illness >1 yr. H/O pain i RUQ & Rt. flank, some mid-back pain as well. Worse with movement. Almost never affected by food ingestion nor by BMs. Pain resolves when pt. lies down. Good appetite, no N/V. About 2 yrs. ago pt. had lamar removed from Lt. femur and replaced with plates & cement, per pt. He says he was told to walk very little because he has "soft bones." Abd./flank/back pain post-dates that. History Unable To Obtain Past Medical: Limited info available but pt. does report H/O prostate ca. Problems: Home Meds Active Scripts Polyethylene Glycol 3350 (MIRALAX) 17 Gm Powd.pack, 8.5 GM PO DAILY Y for CONSTIPATION, #1 BOTTLE 5 Refills Prov:VALE BUTT MD 12/12/17 Bethanechol Chloride (BETHANECHOL CHLORIDE) 25 Mg Tablet, 25 MG PO TID for 30 Days, #90 TAB 1 Refill Prov:PHOEBE LOJA MD 12/09/17 Tamsulosin Hcl (TAMSULOSIN HCL) 0.4 Mg Cap.er.24h, 0.4 MG PO QHS for 30 Days, # 30 CAP 1 Refill Prov:PHOEBE LOJA MD 12/09/17 Pantoprazole Sodium (PANTOPRAZOLE SODIUM) 20 Mg Tablet.dr, 1 TAB PO QDAY, #90 TAB.SR 3 Refills Prov:RONNIE PACHECO APRN-C 10/23/17 Bipap Home (BIPAP HOME) Inha, EACH QHS, #1 Prov:RONNIE PACHECO APRNP-C 09/10/15 Reported Medications Dextromethorphan Hb/Doxylamine (Robitussin Nighttime Cough Dm) 30 Mg-12.5 Mg/10 Ml Liquid 12/25/17 Mag Hydrox/Aluminum Hyd/Simeth (Maalox Advanced Suspension) 200 Mg-200 Mg-20 Mg/ 5 Ml Oral.susp 12/25/17 Aspirin (ASPIRIN) 325 Mg Tablet, 325 MG PO PRN Y for CHEST PAIN, TAB 12/25/17 Calcium Carbonate (TUMS X-STR) 300 Mg Tab.chew, 750 MG PO Q2H, TAB.CHEW 12/25/17 Acetaminophen (TYLENOL) 325 Mg Tablet, 325 MG PO Q4H, TAB 12/25/17 Magnesium Hydroxide (MILK OF MAGNESIA) 400 Mg/5 Ml Oral.susp, 400 MG PO DAILY Y for CONSTIPATION, BOTTLE 12/07/17 Levofloxacin 750 Mg Tab (LEVAQUIN 750 MG TAB) 750 Mg Tablet, 1 TAB PO QODAY 05/02/16 Oxygen (OXYGEN) Inha, 3 L INH cont, L 03/10/16 Bipap Home (BIPAP HOME) Inha, HS with oxygen 3 liters 03/10/16 Sodium Chloride (SALINE NASAL SPRAY) 30 Ml Basalt, 2 SPR NS Q4H Y for nasal congestion, SPRAY 03/04/16 Discontinued Reported Medications Darbepoetin Gabriel In Polysorbat (ARANESP) 100 Mcg/1 Ml Vial, 200 MCG IJ Q4WK Y for anemia, VIAL 12/07/17 Denosumab (PROLIA) 60 Mg/1 Ml Injs, 60 MG SUBQ Injection every 6 months. 12/07/17 Allergies: Coded Allergies: amiodarone (Verified Allergy, Unknown, 12/06/17) vancomycin (Verified Allergy, Unknown, 12/06/17) mirtazapine (Verified Adverse Reaction, Intermediate, MENTAL STATUS CHANGES, 12/06/17) Per pt and pt's daughter remeron caused increased irritability and decreased pscyhological coping skills. Family History: FH: brain cancer FATHER (Father had brain cancer at age 72) BROTHER OR SISTER (Brother with brain tumor at the age of 80) FH: uterine cancer MOTHER (had uterine cancer at the age of 67) Review of Systems Constitutional: No Fever, No Weight Loss Neurological: No Confusion, No Weakness, No Dizziness Cardiovascular: No Chest Pain Respiratory: Shortness of Breath Gastrointestinal: No Nausea, No Vomiting, No Diarrhea, No Constipation, Abdominal Pain (As per HPI.) Musculoskeletal: Pain (Rt. mid-back and Rt. flank.) Exam Vital Signs Vital Signs Date Time Temp Pulse Resp B/P (MAP) Pulse Ox O2 Delivery O2 Flow Rate FiO2 12/25/17 12:30 130/69 (89) 12/25/17 11:48 87 96 12/25/17 10:24 97.5 20 Room Air General Appearance: Alert, Awake, No Acute Distress, Afebrile Neuro: No Gross deficits Cardiovascular: Regular Rate and Rhythm Respiratory: No Respiratory Distress, Clear to Auscultation Chest: Other (Marked tenderness over inf. border of rib cage, lat. aspect.) GI: Abd Soft and Non-Tender, Other (The only tenderness is in Rt. mid-flank, mild without guarding.) Musculoskeletal: No Weakness/Pain (Except as noted elsewhere in ROS.) Integumentary: Skin Intact without Lesion / Mass Psych: Alert & Oriented X3, Appropriate Mood & Affect Medical Decision Making Data Points Result Diagram: 12/25/17 1056 12/25/17 1056 Assessment and Plan Problems: (1) Abdominal pain Onset Date: ~ 11/2016 Status: Chronic Assessment & Plan: Not related to GB. Gall stones present but no evidence of cholecystitis. The "Ayers's sign" noted by the professional programmer analyst is reproduced, when Dr. Jenkins & I did U/S ourselves in ED, with pressure on the Rt. renal cyst, which is relatively near the RUQ abd. wall. This pain is of musculoskeletal origin. Suspect it is secondary to alterations in pt's. gait due to pain in Lt. thigh and decreased mobility. Suggest referral back to his orthopedic surgeon for further evaluation. No surgical intervention indicated at this time. An intercostal block might give some transient relief. Discussed with Dr. Jenkins. (2) Flank pain Status: Chronic Assessment & Plan: See comments under Abdominal Pain above. Time Spent: < 30 min Venous Thromboembolism VTE Risk Physician Assess for VTE Risk: Yes Patient's VTE Risk: Low Antithrombotics Is Pt On Any Antithrombotics?: No CVA Documentation Signs and Symptoms of Stroke: Dyspraxia of Arm, Dysphasia, Dizziness, Incoherent Speech JOE ISRAEL IV, MD Dec 25, 2017 15:58
--- NOTE | 2017-12-25 17:41 | RADIOLOGY IMAGING REPORT ---
FACILITY: [facility] - [place] PATIENT NAME: Alok Edwards : 1930 MR: [id number] V: [id number] EXAM DATE: ORDERING PHYSICIAN: EVETTE LOBO TECHNOLOGIST: Location: [facility] - [place] Patient: Alok Edwards : 1930 Visit/Account:[id number] Date of Sevice: 12/25/2017 ABDOMEN W/O CONTRAST INDICATION: Abdominal pain. Possible muscle injury. COMPARISON: CT exam pelvis on 12/06/2017. FINDINGS: Multiplanar, multisequence images of the abdomen were obtained without contrast. The liver shows no focal abnormality. The gallbladder shows couple tiny stones in the dependent port ion without other abnormality. Unchanged from previous CT scan. The common bile duct is normal size w ithout focal abnormality. The pancreas shows no focal abnormality. The spleen, adrenal glands and lef t kidney are within normal limits. The right kidney does show a 2.9 cm cyst is otherwise unremarkable . The visualized gastrointestinal tract is unremarkable. No free fluid, fluid collections or areas of inflammation. No adenopathy. Lung bases are clear. Surrounding soft tissues unremarkable. Visualized spine does show degenerative changes. IMPRESSION: 1. Stable cholelithiasis.. No indication of cholecystitis. Normal common bile duct and biliary system . 2. Right renal cyst. 3. The remainder of the exam is unremarkable. Visualized spine shows degenerative changes. Report Dictated By: Preet Wu at 12/25/2017 5:29 PM Report E-Signed By: Preet Wu at 12/25/2017 5:38 PM WSN:[id number]
--- NOTE | 2017-12-25 18:32 | RADIOLOGY IMAGING REPORT ---
FACILITY: [facility] - [place] PATIENT NAME: Alok Edwards : 1930 MR: [id number] V: [id number] EXAM DATE: ORDERING PHYSICIAN: EVETTE LOBO TECHNOLOGIST: Location: [facility] Patient: Alok Edwards : 1930 Visit/Account:[id number] Date of Sevice: 12/25/2017 EXAMINATION: Thoracic spine MRI without IV contrast HISTORY: Sclerotic lesion on T9. COMPARISON: CT of the abdomen and pelvis from 12/06/2017. CTA of the chest from 10/06/2015. TECHNIQUE: Multi-planar, multi-sequence thoracic spine MRI was performed without intravenous contras t administration. FINDINGS: There is unchanged mild central height loss of the T9 vertebral body. Unchanged moderate chronic comp ression deformity of T12. Moderate to severe compression deformity of T5 is increased since 10/06/2015 . There is slight retropulsion of bone from the T5 vertebral body into the ventral spinal canal which slightly indents the ventral thecal sac. Mild compression deformities of T3 and T4 appear similar to previous examination. Moderate compression deformity of T6 is unchanged. Laminectomy defect at T12. Alignment: Negative. Vertebral marrow signal: Mild heterogeneous signal intensity in the marrow of the T9 vertebral body. There is mild patchy T2 hyperintense signal in the T9 vertebral body. Paravertebral soft tissues: Negative. Thoracic cord: Negative. Disc Spaces: No central spinal canal stenosis. IMPRESSION: Unchanged mild compression deformity of the T9 vertebral body. There is benign-appearing mild heterog eneous signal intensity in the T9 vertebral body without discrete mass. 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 There is slight retropulsion of bone from the T5 verte bral body into the ventral spinal canal which slightly indents the ventral thecal sac. Chronic compression deformities of T3, T4, T6, and T12 are unchanged. Report Dictated By: Parish Gonzalez MD at 12/25/2017 6:07 PM Report E-Signed By: Parish Gonzalez MD at 12/25/2017 6:28 PM WSN:[id number]
[2017-12-25] MEDS ORDERED: ACET/HYDROC 5/325MG TH ER ONLY 2 TAB/BOTTLE PO ONE (19:00)
[2017-12-25] MEDS ORDERED: predniSONE 20 MG TAB PO ONE (19:00)
[2017-12-25] MEDS ORDERED: PRED20TA6 PO (19:02)
[2017-12-25] MEDS ORDERED: HYDR-385 PO (19:02)
[2017-12-25 19:05] VITALS: BP 136/87
== END 2017-12-25 19:14 | disposition home or self-care (01) ==
LOC: ER 10:40
DX: S22.050A Wedge compression fracture of T5-T6 vertebra, initial encounter for closed fracture (principal); N28.1 Cyst of kidney, acquired
CPT/HCPCS: 36415; 71046; 71100; 72146; 74181; 76705; 81001; 83690; 85025; 99285; J7512; 82040; 82247; 82310; 82374; 82435; 82565; 82947; 84075; 84132; 84155; 84295; 84450; 84460; 84520

== ENCOUNTER 2018-01-03 20:22 | Emergency (ER) | payer MEDICARE, OTHER, MEDICAID ==
[2015-07-22 16:00] VITALS: Wt 94.3 kg
[~2018-01-03 20:22] MED LIST changes: +ASPI-757 PO; +CALC-520 PO; +DEXT237L; +IBUP-136 PO; -IBUP200C71 PO; +MAG-65; +PRED20TA6 PO
--- NOTE | 2018-01-03 20:31 | ER Report ---
History and Physical Time Seen By MD: 20:31 HPI/ROS CHIEF COMPLAINT: diarrhea, sweating and shaking HISTORY OF PRESENT ILLNESS: This is an 87 year old male. He was brought to the ER tonight by his daughter. He had 3 episodes of diarrhea that started this evening, followed by severe diaphoresis and shaking/tremor. His diaphoresis was bad enough to soak all of his clothing. He feels very weak overall as well. He has some discomfort across the lower abdomen, but upper abdomen is pain free. He always has some shortness of breath and is on chronic oxygen therapy on 2-3 liters by nasal canula and having normal saturations on this amount of oxygen now. He feels like his breathing is about the same as always. He has no chest pain. He has chronic back pain from a T9 compression fracture, and a T5 vertebral body fracture, and is following up with orthopedic surgery. These pains are unchanged at this time. He is on every other day use of Levofloxacin for suppression therapy for chronic osteomyelitis of the left hip. No fevers noted at [facility] over the last 48 hours. Shaking today was described as tremor and as chills. He has some nausea, but no vomiting. He has had problems with urinary retention occasionally and some urinary leakage. REVIEW OF SYSTEMS: Constitutional: As above. Eyes: No new changes with vision. ENT: Chronic hearing problems Cardiovascular: No chest pain. No palpitations. Respiratory: No cough. Gastrointestinal: As above. Genitourinary: No dysuria. Has chronic leakage. No problems with retention recently. Musculoskeletal: Chronic back and hip pain as noted. Skin: No rashes noted recently. Neurological: No headache. He was a little dizzy earlier. Allergies: Coded Allergies: amiodarone (Verified Allergy, Unknown, 12/06/17) vancomycin (Verified Allergy, Unknown, 12/06/17) mirtazapine (Verified Adverse Reaction, Intermediate, MENTAL STATUS CHANGES, 12/06/17) Per pt and pt's daughter remeron caused increased irritability and decreased pscyhological coping skills. Home Meds Active Scripts Polyethylene Glycol 3350 (MIRALAX) 17 Gm Powd.pack, 8.5 GM PO DAILY Y for CONSTIPATION, #1 BOTTLE 5 Refills Prov:VALE BUTT MD 12/12/17 Bethanechol Chloride (BETHANECHOL CHLORIDE) 25 Mg Tablet, 25 MG PO TID for 30 Days, #90 TAB 1 Refill Prov:PHOEBE LOJA MD 12/09/17 Tamsulosin Hcl (TAMSULOSIN HCL) 0.4 Mg Cap.er.24h, 0.4 MG PO QHS for 30 Days, # 30 CAP 1 Refill Prov:PHOEBE LOJA MD 12/09/17 Pantoprazole Sodium (PANTOPRAZOLE SODIUM) 20 Mg Tablet.dr, 1 TAB PO QDAY, #90 TAB.SR 3 Refills Prov:RONNIE PACHECO APRN PROCESS CONTROL SPECIALIST-C 10/23/17 Bipap Home (BIPAP HOME) Inha, EACH QHS, #1 Prov:RONNIE PACHECO APRN PROCESS CONTROL SPECIALIST-C 09/10/15 Reported Medications Dextromethorphan Hb/Doxylamine (Robitussin Nighttime Cough Dm) 30 Mg-12.5 Mg/10 Ml Liquid 12/25/17 Mag Hydrox/Aluminum Hyd/Simeth (Maalox Advanced Suspension) 200 Mg-200 Mg-20 Mg/ 5 Ml Oral.susp 12/25/17 Aspirin (ASPIRIN) 325 Mg Tablet, 325 MG PO PRN Y for CHEST PAIN, TAB 12/25/17 Calcium Carbonate (TUMS X-STR) 300 Mg Tab.chew, 750 MG PO Q2H, TAB.CHEW 12/25/17 Magnesium Hydroxide (MILK OF MAGNESIA) 400 Mg/5 Ml Oral.susp, 400 MG PO DAILY Y for CONSTIPATION, BOTTLE 12/07/17 Levofloxacin 750 Mg Tab (LEVAQUIN 750 MG TAB) 750 Mg Tablet, 1 TAB PO QODAY 05/02/16 Oxygen (OXYGEN) Inha, 3 L INH cont, L 03/10/16 Bipap Home (BIPAP HOME) Inha, HS with oxygen 3 liters 03/10/16 Sodium Chloride (SALINE NASAL SPRAY) 30 Ml [place], 2 SPR NS Q4H Y for nasal congestion, SPRAY 03/04/16 Discontinued Reported Medications Acetaminophen (TYLENOL) 325 Mg Tablet, 325 MG PO Q4H, TAB 12/25/17 Discontinued Scripts Hydrocodone Bit/Acetaminophen (HYDROCODON-ACETAMINOPHEN 5-325) 1 Each Tablet, 1 EACH PO Q4-6H Y for PAIN, #8 TAB Prov:EVETTE LOBO PROCESS CONTROL SPECIALIST 12/25/17 Prednisone (PREDNISONE) 20 Mg Tablet, 40 MG PO DAILY, #8 TAB Prov:EVETTE LOBO PROCESS CONTROL SPECIALIST 12/25/17 Past Medical/Surgical History Patient has a past medical history of supraventricular tachycardia, A. fib, sleep apnea, emphysema, COPD, reflux, hematuria, arthritis, hip fracture, stenosis the back, hard of hearing, skin cancer, alcohol use, prostate cancer. During his last ER visit he had diagnosis of gallstones without cholecystitis, musculoskeletal pain, and a new small retropulsed fragment of the vertebral body fracture of T5 that put a little pressure on the thecal sac and a chronic T9 compression fracture. 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 Patient has a family medical history of cancer, diabetes. Reviewed Nurses Notes: Yes Hx Smoking: Yes Smoking Status: Former Smoker Exposure to Second Hand Smoke?: No Hx Substance Use Disorder: No Hx Alcohol Use: Yes Constitutional Vital Sign - Last 24 Hours 01/03/18 01/03/18 01/03/18 01/03/18 20:27 20:29 20:30 20:52 Temp 97.5 Pulse 102 99 Resp 22 24 B/P (MAP) 132/59 (83) 121/65 121/65 (83) Pulse Ox 93 O2 Delivery Nasal Cannula 01/03/18 01/03/18 01/03/18 01/03/18 21:00 21:07 21:12 21:42 Pulse 94 92 101 Resp 24 17 B/P (MAP) 136/69 (91) Pulse Ox 92 92 95 01/03/18 01/03/18 01/03/18 01/03/18 21:57 22:22 22:27 22:30 Pulse 95 103 Resp 17 19 B/P (MAP) 132/59 (83) 130/56 (80) Pulse Ox 93 90 01/03/18 01/03/18 01/03/18 01/03/18 22:42 22:47 23:00 23:02 Pulse 92 92 93 Resp 16 13 13 B/P (MAP) 116/76 (89) Pulse Ox 92 91 91 01/03/18 01/03/18 01/03/18/18/18 23:17 23:30 23:32 23:47 Pulse 88 91 88 Resp 15 14 18 B/P (MAP) 119/61 (80) Pulse Ox 93 94 95 01/03/18 23:52 Pulse 92 Resp 18 Pulse Ox 93 Physical Exam General Appearance: The patient is alert. He is having a difficult time getting comfortable, mostly complaining about his back and the ER bed and not getting a pillow. Eyes: Pupils are equal, round. No pallor, injection or icterus. ENT: Mucous membranes are moist. Normal oral mucosa. Posterior oropharynx is normal. Hard of hearing with hearing aides. Neck: Supple and non tender. Respiratory: Lungs are clear to auscultation. Cardiovascular: Regular rate and rhythm. Normal capillary refill. Chronic edema in bilateral lower legs. Gastrointestinal: Abdomen is soft. He has discomfort across the lower abdomen. No distention. Normal active bowel sounds. No costovertebral angle tenderness with percussion. Neurological: Alert and oriented x3. Generalized weakness. Moving all extremities. No focal deficits noted other than vision and hearing chronically as noted. Skin: Warm and diaphoretic. No rash. Musculoskeletal: Has some pain in mid thoracic back and left hip, chronic for him. DIFFERENTIAL DIAGNOSIS: After history and physical exam, differential diagnosis was considered for a patient with onset of diarrhea, diaphoresis, and shaking suddenly this afternoon, uncertain etiology. He is on chronic antibiotic therapy so Clostridium difficile as a possibility. This could also be a colitis or gastroenteritis. We will check for urinary infection and pulmonary infectious process as well. His hip pain is chronic and unchanged so would be hard to tell if this was worsening of his osteomyelitis of the left hip. He also had gallstones on his last evaluation, but has no right upper quadrant pain at this time. His daughter states that he was complaining of right upper abdominal pain earlier tonight. Cholecystitis would be possible as well. Medical Decision Making Data Points Result Diagram: 01/03/18210401/03/182104 Laboratory Hematology Test 01/03/18 21:05 01/03/18 21:06 Red Blood Count 3.62 M/uL (4.00-5.60) Mean Corpuscular Volume 78.1 fL (80.0-96.0) Mean Corpuscular Hemoglobin 25.4 pg (26.0-33.0) Mean Corpuscular Hemoglobin Concent 32.5 g/dL (32.0-36.0) Red Cell Distribution Width 19.1 % (11.5-14.5) Mean Platelet Volume 9.0 fL (7.2-11.1) Neutrophils (%) (Auto) 55.5 % (39.4-72.5) Lymphocytes (%) (Auto) 11.6 % (17.6-49.6) Monocytes (%) (Auto) 32.2 % (4.1-12.4) Eosinophils (%) (Auto) 0.3 % (0.4-6.7) Basophils (%) (Auto) 0.4 % (0.3-1.4) Nucleated RBC Relative Count (auto) 0.0 /100WBC Neutrophils # (Auto) 8.9 K/uL (2.0-7.4) Lymphocytes # (Auto) 1.9 K/uL (1.3-3.6) Monocytes # (Auto) 5.2 K/uL (0.3-1.0) Eosinophils # (Auto) 0.0 K/uL (0.0-0.5) Basophils # (Auto) 0.1 K/uL (0.0-0.1) Nucleated RBC Absolute Count (auto) 0.00 K/uL Peripheral Blood Smear Yes Y/N Prothrombin Time 13.5 seconds (12.0-14.4) Prothromb Time International Ratio 1.03 Activated Partial Thromboplast Time 33 seconds (23-35) Sodium Level 132 mmol/L (137-145) Potassium Level 4.6 mmol/L (3.5-5.0) Chloride Level 100 mmol/L (98-107) Carbon Dioxide Level 20 mmol/L (22-30) Blood Urea Nitrogen 32 mg/dl (9-21) Creatinine 2.00 mg/dl (0.66-1.25) Glomerular Filtration Rate Calc 31.7 Random Glucose 118 mg/dl (75-110) Calcium Level 8.6 mg/dl (8.4-10.2) Total Bilirubin 0.4 mg/dl (0.2-1.3) Aspartate Amino Transf (AST/SGOT) 21 U/L (0-35) Alanine Aminotransferase (ALT/SGPT) 26 U/L (0-56) Alkaline Phosphatase 56 U/L (0-126) Total Protein 7.3 g/dl (6.3-8.2) Albumin 4.3 g/dl (3.5-5.0) Amylase Level 110 U/L (0-110) Lipase 141 U/L (23-300) Urine Color Yellow Urine Clarity Clear Urine pH 6.0 pH (4.8-9.5) Urine Specific [place] 1.015 Urine Protein 30 mg/dL (NEGATIVE) Urine Glucose (UA) 50 mg/dL (NEGATIVE) Urine Ketones Negative mg/dL (NEGATIVE) Urine Blood Small (NEGATIVE) Urine Nitrite Negative (NEGATIVE) Urine Bilirubin Negative (NEGATIVE) Urine Urobilinogen Negative mg/dL (0.2-1.9) Urine Leukocyte Esterase Negative (NEGATIVE) Urine RBC 2 /HPF (0-2/HPF) Urine WBC 2 /HPF (0-5/HPF) Urine Squamous Epithelial Cells Few /LPF (</=FEW) Urine Bacteria Negative /HPF (NONE-FEW) Urine Mucus None /HPF (NONE-FEW) Chemistry Test 01/03/18 21:05 01/03/18 21:06 White Blood Count 16.0 k/uL (4.5-11.0) Red Blood Count 3.62 M/uL (4.00-5.60) Hemoglobin 9.2 g/dL (14.0-18.0) Hematocrit 28.3 % (42.0-52.0) Mean Corpuscular Volume 78.1 fL (80.0-96.0) Mean Corpuscular Hemoglobin 25.4 pg (26.0-33.0) Mean Corpuscular Hemoglobin Concent 32.5 g/dL (32.0-36.0) Red Cell Distribution Width 19.1 % (11.5-14.5) Platelet Count 145 K/uL (150-450) Mean Platelet Volume 9.0 fL (7.2-11.1) Neutrophils (%) (Auto) 55.5 % (39.4-72.5) Lymphocytes (%) (Auto) 11.6 % (17.6-49.6) Monocytes (%) (Auto) 32.2 % (4.1-12.4) Eosinophils (%) (Auto) 0.3 % (0.4-6.7) Basophils (%) (Auto) 0.4 % (0.3-1.4) Nucleated RBC Relative Count (auto) 0.0 /100WBC Neutrophils # (Auto) 8.9 K/uL (2.0-7.4) Lymphocytes # (Auto) 1.9 K/uL (1.3-3.6) Monocytes # (Auto) 5.2 K/uL (0.3-1.0) Eosinophils # (Auto) 0.0 K/uL (0.0-0.5) Basophils # (Auto) 0.1 K/uL (0.0-0.1) Nucleated RBC Absolute Count (auto) 0.00 K/uL Peripheral Blood Smear Yes Y/N Prothrombin Time 13.5 seconds (12.0-14.4) Prothromb Time International Ratio 1.03 Activated Partial Thromboplast Time 33 seconds (23-35) Glomerular Filtration Rate Calc 31.7 Calcium Level 8.6 mg/dl (8.4-10.2) Total Bilirubin 0.4 mg/dl (0.2-1.3) Aspartate Amino Transf (AST/SGOT) 21 U/L (0-35) Alanine Aminotransferase (ALT/SGPT) 26 U/L (0-56) Alkaline Phosphatase 56 U/L (0-126) Total Protein 7.3 g/dl (6.3-8.2) Albumin 4.3 g/dl (3.5-5.0) Amylase Level 110 U/L (0-110) Lipase 141 U/L (23-300) Urine Color Yellow Urine Clarity Clear Urine pH 6.0 pH (4.8-9.5) Urine Specific [place] 1.015 Urine Protein 30 mg/dL (NEGATIVE) Urine Glucose (UA) 50 mg/dL (NEGATIVE) Urine Ketones Negative mg/dL (NEGATIVE) Urine Blood Small (NEGATIVE) Urine Nitrite Negative (NEGATIVE) Urine Bilirubin Negative (NEGATIVE) Urine Urobilinogen Negative mg/dL (0.2-1.9) Urine Leukocyte Esterase Negative (NEGATIVE) Urine RBC 2 /HPF (0-2/HPF) Urine WBC 2 /HPF (0-5/HPF) Urine Squamous Epithelial Cells Few /LPF (</=FEW) Urine Bacteria Negative /HPF (NONE-FEW) Urine Mucus None /HPF (NONE-FEW) Coagulation Test 01/03/18 21:05 Prothrombin Time 13.5 seconds Prothromb Time International Ratio 1.03 Activated Partial Thromboplast Time 33 seconds Urinalysis Test 01/03/18 21:06 Urine Color Yellow Urine Clarity Clear Urine pH 6.0 pH (4.8-9.5) Urine Specific [place] 1.015 Urine Protein 30 mg/dL (NEGATIVE) Urine Glucose (UA) 50 mg/dL (NEGATIVE) Urine Ketones Negative mg/dL (NEGATIVE) Urine Blood Small (NEGATIVE) Urine Nitrite Negative (NEGATIVE) Urine Bilirubin Negative (NEGATIVE) Urine Urobilinogen Negative mg/dL (0.2-1.9) Urine Leukocyte Esterase Negative (NEGATIVE) Urine RBC 2 /HPF (0-2/HPF) Urine WBC 2 /HPF (0-5/HPF) Urine Squamous Epithelial Cells Few /LPF (</=FEW) Urine Bacteria Negative /HPF (NONE-FEW) Urine Mucus None /HPF (NONE-FEW) EKG/Imaging Imaging INDICATION: Diarrhea, chills, diaphoresis. EXAM DATE: 01/03/2018 8:42 PM COMPARISON: None. FINDINGS: PA view the chest with upright and spine AP views of the abdomen (5 images total ). The lungs are well-expanded and clear. Calcified pleural plaques, most prominently projecting in the left suprahilar region. No pleural effusion or pneumothorax. Heart size is normal. Bowel gas pattern is nonobstructive. No pneumatosis, pneumoperitoneum or portal venous gas. No evidence of large volume ascites or mass. No acute osseous abnormality. Incompletely imaged left hip prosthesis. Prominent vascular calcifications. IMPRESSION: 1. No apparent acute abnormality. 2. 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 3. Prominent vascular calcifications. Report Dictated By: Ar De Jesus MD at 01/03/2018 10:12 PM COMPUTED TOMOGRAPHY ABDOMEN AND PELVIS WITHOUT INTRAVENOUS CONTRAST DATE OF EXAM: 01/03/2018 9:55 PM INDICATION: Diarrhoea, weak, chills, diaphoretic. COMPARISON: Same-day radiographs, abdomen MRI 12/25/2017, CT abdomen and pelvis . TECHNIQUE: Noncontrast abdomen and pelvis CT performed. Sagittal and coronal reconstructions were performed. One of the following dose optimization techniques was utilized in the performance of this exam: Automated exposure control; adjustment of the mA and/or kV according to the patient's size; or use of an iterative reconstruction technique. Specific details can be referenced in the facility's radiology CT exam operational policy. FINDINGS: Lung bases: Calcified pleural plaques. Mild scarring/atelectasis. Prominent mitral valve calcification and coronary artery calcifications. Liver: Nonfocal. Hepatic artery calcifications. Gallbladder and bile ducts: Cholelithiasis with no evidence of cholecystitis. Spleen: Small hyperattenuating focus along the posterior aspect of the spleen on image 40 series 2 of doubtful significance, otherwise unremarkable. Pancreas: Normal. Adrenals: Normal. Kidneys, ureters and bladder: 3.2 cm right renal cyst. No suspicious lesion. Urinary bladder is decompressed. Retroperitoneum and aorta: Nonaneurysmal aorta with mild to moderate calcification. No adenopathy. GI tract, mesentery and peritoneum: Nonacute. At least moderate sigmoid diverticulosis. Tiny hiatal hernia. Prostate and seminal vesicles: Question prostatectomy. Bones and soft tissues: No acute abnormality. Left hip prosthesis with probable antibiotic spacer and chronic appearing surrounding fluid in calcification. Mineralization is diffusely low. Long segment lumbar laminectomies. IMPRESSION: No acute abnormality. Multiple nonacute findings as described. Dr. De Jesus discussed this case with JIM ASHTON on 01/03/2018 10:51 PM. Report Dictated By: Ar De Jesus MD at 01/03/2018 10:34 PM ED Course/Re-evaluation Clinical Indication for ER IV: IV Access ED Course His labs are not that out of the ordinary from his chronic changes with the exception of his white count being elevated. Abdominal x-ray and CT scan were unremarkable without any evidence of bowel wall thickening or signs of obstruction. He has had no further diarrhea, so we have not been able to obtain stool studies. He has a lot of possible reasons for his pain and I am most concerned about the possibility of C. difficile, but this is less likely when he has not had any further diarrhea. He feels better. This could be a simple gastroenteritis. The symptoms of sweating weakness and dizziness could've been a stress response from this. I also worry about his chronic Levaquin dose but the family and patient state that his doctors of told him he needs to continue this or his osteomyelitis will flareup. They could certainly talk to their doctor about this is a Levaquin itself could be causing pain. I did discuss the case with our hospitalist, Dr. Mazariegos, briefly and they felt like the same things could be a possible cause of his pain and symptoms. I discussed all this with the patient and with his daughter. He is feeling much better and returned to the [facility]. Decision to Disposition Date: Jan 03, 2018 Decision to Disposition Time: 23:55 Depart Departure Latest Vital Signs Vital Signs Date Time Temp Pulse Resp B/P (MAP) Pulse Ox O2 Delivery O2 Flow Rate FiO2 01/03/18 23:52 92 18 93 01/03/18 23:30 119/61 (80) 01/03/18 20:29 97.5 Nasal Cannula Impression: Primary Impression: Diarrhea Additional Impression: Gastroenteritis Condition: Improved Disposition: HOME OR SELF-CARE Referrals: RONNIE PACHECO APRN-C (PCP) Patient Instructions: Acute Diarrhea (ED), Gastroenteritis (ED) Additional Instructions: Increase fluid intake over the next couple of days. Please bring a stool sample to the lab to check for infection such as C diff Talk to your doctors about the possibility of the chronic use of Levofloxacin causing bowel problems. Follow-up with your primary care provider. Problem Qualifiers Primary Impression: Diarrhea Diarrhea type: unspecified type Qualified Codes: R19.7 - Diarrhea, unspecified JIM ASHTON MD Jan 03, 2018 20:31
[2018-01-03 21:26] LABS: PLATELET COUNT, AUTOMATED 145 K/uL (150-450)
[2018-01-03 21:34] LABS: INR 1.03
--- NOTE | 2018-01-03 23:12 | RADIOLOGY IMAGING REPORT ---
FACILITY: [facility] PATIENT NAME: Alok Edwards : 1930 MR: [id number] V: [id number] EXAM DATE: ORDERING PHYSICIAN: JIM ASHTON TECHNOLOGIST: Location: [facility] [place] Patient: Alok Edwards : 1930 Visit/Account:[id number] Date of Sevice: 01/03/2018 INDICATION: Diarrhea, chills, diaphoresis. EXAM DATE: 01/03/2018 8:42 PM COMPARISON: None. FINDINGS: PA view the chest with upright and spine AP views of the abdomen (5 images total). The lungs are well-expanded and clear. Calcified pleural plaques, most prominently projecting in the left suprahilar region. No pleural effusion or pneumothorax. Heart size is normal. Bowel gas pattern is nonobstructive. No pneumatosis, pneumoperitoneum or portal venous gas. No eviden ce of large volume ascites or mass. No acute osseous abnormality. Incompletely imaged left hip prosthesis. Prominent vascular calcifications. IMPRESSION: 1. No apparent acute abnormality. 2. 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 3. Prominent vascular calcifications. Report Dictated By: Ar De Jesus MD at 01/03/2018 10:12 PM Report E-Signed By: Ar De Jesus MD at 01/03/2018 10:22 PM WSN:[id number]
--- NOTE | 2018-01-03 23:13 | RADIOLOGY IMAGING REPORT ---
FACILITY: [facility] PATIENT NAME: Alok Edwards : 1930 MR: [id number] V: [id number] EXAM DATE: ORDERING PHYSICIAN: JIM ASHTON TECHNOLOGIST: Location: [facility] [place] Patient: Alok Edwards : 1930 Visit/Account:[id number] Date of Sevice: 01/03/2018 COMPUTED TOMOGRAPHY ABDOMEN AND PELVIS WITHOUT INTRAVENOUS CONTRAST DATE OF EXAM: 01/03/2018 9:55 PM INDICATION: Diarrhoea, weak, chills, diaphoretic. COMPARISON: Same-day radiographs, abdomen MRI 12/25/2017, CT abdomen and pelvis 12/06/2017. TECHNIQUE: Noncontrast abdomen and pelvis CT performed. Sagittal and coronal reconstructions were pe rformed. One of the following dose optimization techniques was utilized in the performance of this e xam: Automated exposure control; adjustment of the mA and/or kV according to the patient's size; or u se of an iterative reconstruction technique. Specific details can be referenced in the facility's r adiology CT exam operational policy. FINDINGS: Lung bases: Calcified pleural plaques. Mild scarring/atelectasis. Prominent mitral valve calcificat ion and coronary artery calcifications. Liver: Nonfocal. Hepatic artery calcifications. Gallbladder and bile ducts: Cholelithiasis with no evidence of cholecystitis. Spleen: Small hyperattenuating focus along the posterior aspect of the spleen on image 40 series 2 o f doubtful significance, otherwise unremarkable. Pancreas: Normal. Adrenals: Normal. Kidneys, ureters and bladder: 3.2 cm right renal cyst. No suspicious lesion. Urinary bladder is de compressed. Retroperitoneum and aorta: Nonaneurysmal aorta with mild to moderate calcification. No adenopathy. GI tract, mesentery and peritoneum: Nonacute. At least moderate sigmoid diverticulosis. Tiny hiata l hernia. Prostate and seminal vesicles: Question prostatectomy. Bones and soft tissues: No acute abnormality. Left hip prosthesis with probable antibiotic spacer a nd chronic appearing surrounding fluid in calcification. Mineralization is diffusely low. Long segm ent lumbar laminectomies. IMPRESSION: No acute abnormality. Multiple nonacute findings as described. Dr. De Jesus discussed this case with JIM ASHTON on 01/03/2018 10:51 PM. Report Dictated By: Ar De Jesus MD at 01/03/2018 10:34 PM Report E-Signed By: Ar De Jesus MD at 01/03/2018 10:52 PM WSN:[id number]
[2018-01-03 23:30] VITALS: BP 119/61
== END 2018-01-04 00:05 | disposition home or self-care (01) ==
LOC: ER 20:43
DX: K52.9 Noninfective gastroenteritis and colitis, unspecified (principal); R10.30 Lower abdominal pain, unspecified; R53.1 Weakness
CPT/HCPCS: 74022; 74176; 81001; 82040; 82150; 82247; 82310; 82374; 82435; 82565; 82947; 83690; 84075; 84132; 84155; 84295; 84450; 84460; 84520; 85025; 85610; 85730; 87040; 87088; 99284

== ENCOUNTER → 2018-01-08 | Outpatient (REF) | payer MEDICARE, OTHER, MEDICAID ==
[2015-07-22 16:00] VITALS: BMI 31.4
== END ==
LOC: ZZSPRING 10:25
PROVIDERS: ATTEND Family Medicine
DX: R19.7 Diarrhea, unspecified (principal)
CPT/HCPCS: 82274; 83630; 87045; 87324; 87449

== ENCOUNTER 2018-01-29 14:55 | Outpatient (RCR) | payer MEDICARE, OTHER, MEDICAID ==
[2015-07-22 16:00] VITALS: BMI 31.4
[2017-11-15 15:55] LABS: PLATELET COUNT, AUTOMATED 94 K/uL (150-450)
[2018-01-08 15:37] VITALS: BP 111/52
[2018-01-08 15:49] LABS: PLATELET COUNT, AUTOMATED 91 K/uL (150-450)
[~2018-01-29 14:55] MED LIST changes: +DARBEPOETIN ESRD 100 MCG/0.5ML SYR SC ONE
[2018-01-29 15:20] LABS: PLATELET COUNT, AUTOMATED 91 K/uL (150-450)
[2018-01-29] MEDS ORDERED: DARBEPOETIN ESRD 100 MCG/0.5ML SYR SC PRN (15:55)
--- NOTE | 2018-01-30 17:23 | ONCOLOGY FOLLOW UP NOTE ---
EVENT DATE: January 29, 2018 CHIEF COMPLAINT/REASON FOR VISIT Mr. Edwards is a pleasant, 87-year-old gentleman with anemia of chronic disease, history of prostate cancer, and dementia, who presents for followup. HISTORY OF PRESENT ILLNESS Mr. Edwards returns. He continues on Aranesp 200 mcg every month. We have been holding his Aranesp as his hemoglobin was above 11 and did have to do that once earlier this summer. We waited an additional month, and his hemoglobin dropped all the way down to 9, and he had more symptoms. He was in the ER three times in the past month which may or may not have been related to this drop in hemoglobin. He is seen again with his daughter today and continues to live in an assisted living facility. His PSA has been checked repeatedly, and the most recent level was 0.09. No other new issues. I do believe that his dementia has advanced since I first met him. PAST MEDICAL HISTORY 1. Paroxysmal supraventricular tachycardia. 2. Skin cancer. 3. GERD. 4. Osteoporosis. 5. Vitamin B deficiency. 6. Chronic anemia. 7. History of prostate cancer. 8. Lumbar spinal stenosis. PAST SURGICAL HISTORY 1. Laminectomy in March 2012, lumbar multiple level for lumbar stenosis. 2. Bilateral orchiectomy in 1991. 3. Skin cancer of the left eye in 2009. 4. Skin cancer of the left oriental orthodox in February 2012. 5. Laminectomy in 1979 of the lumbar area. 6. Abdominal surgery times five, status post appendectomy, colostomy, and taking down of the colostomy. 7. Appendectomy at the age of 16. 8. Left ankle replacement in April 2012. 9. Bilateral cataract extraction. 10. Right elbow ORIF. 11. Right arthroscopic knee surgery. 12. Left ankle tendon surgery. 13. Hand surgery for multiple trigger finger. SOCIAL HISTORY The patient is a . He had two daughters. He is a retired railroad contractor. He has two drinks per week. He quit smoking in 1999; prior to that he smoked two packs a day for 50 years. He denies any abuse of drugs. FAMILY HISTORY Father had brain cancer at the age of 72. Mother had uterine cancer at the age of 67. Brother with brain tumor at the age of 80. ONCOLOGY HISTORY Additional history of prostate cancer diagnosed in 1981, treated with androgen deprivation therapy for over 20 years. 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 The hypogonadism also likely contributed to anemia of chronic disease. The prostate cancer therapy included prostatectomy in 1991, followed by radiation therapy to the prostate, followed by the androgen deprivation therapy in 2009. He then had bilateral orchiectomies and discontinued the Casodex and Lupron. He does have osteoporosis with history of a pathologic fracture. His PSA continues to be undetectable. REVIEW OF SYSTEMS CONSTITUTIONAL: No fevers, chills, or weight change. HEENT: No headache or vision changes. CARDIOVASCULAR: No chest pain or dyspnea on exertion. RESPIRATORY: No shortness of breath, wheeze, or cough. GASTROINTESTINAL: No nausea or vomiting. GENITOURINARY: No dysuria or hematuria. MUSCULOSKELETAL: Sitting in a wheelchair today. EXTREMITIES: No clubbing, cyanosis, or edema. SKIN: Easy bruising which is a chronic issue for him. LYMPHATIC: No concerning lumps or bumps. Remainder of review of systems otherwise negative. PHYSICAL EXAMINATION VITAL SIGNS: Blood pressure 140/67, pulse 73, respiratory rate 16, temperature 98 Fahrenheit, oxygen saturation 97% on 1.5L. Pain zero/10. Fatigue is zero/ 10. GENERAL: Stable condition, resting comfortably in the wheelchair. HEENT: Normocephalic, atraumatic. SKIN: The patient does have a healed surgical scar, possible Mohs surgery on the top of his scalp. NEUROLOGIC: Alert and oriented, however, the patient does repeat himself and describes some symptoms multiple times. I am concerned that he does not retain some of the information I am giving him. Thankfully, his daughter is with him today. Full physical exam deferred today otherwise due to the fair amount of time spent in counseling and coordination of care. IMPRESSION AND PLAN Mr. Edwards is a pleasant 87-year-old gentleman with the followin. Anemia of chronic disease, multifactorial. We will continue Aranesp indefinitely. He has been needing it monthly. 2. History of prostate cancer. The PSA has been low. 3. History of pulmonary hypertension and congestive heart disease. He will continue to follow with his primary care provider and other specialists. 4. Probable dementia. I believe this has worsened since when I first met him. I answered all of his questions today. No new issues. We will continue the Aranesp indefinitely. If he needs to skip a dose, we check it one to two weeks after that instead of waiting the full month. BILLING Return visit level 4. Total time 30 minutes, counseling time 20. MTDD
== END 2018-02-12 ==
LOC: SPU 14:55
PROVIDERS: ATTEND Internal Medicine
DX: D63.8 Anemia in other chronic diseases classified elsewhere (principal); D46.4 Refractory anemia, unspecified; Z85.46 Personal history of malignant neoplasm of prostate
CPT/HCPCS: 36415; 82274; 83630; 85025; 87045; 87324; 87449; 96372; J0882; 82040; 82247; 82310; 82374; 82435; 82565; 82947; 84075; 84132; 84155; 84295; 84450; 84460; 84520

== ENCOUNTER → 2018-04-12 | Outpatient (CLI) | payer MEDICARE, OTHER, MEDICAID ==
[2015-07-22 16:00] VITALS: BMI 31.4
[~2018-04-12] MED LIST changes: -DARBEPOETIN ESRD 100 MCG/0.5ML SYR SC ONE
== END ==
LOC: LAB 14:00
PROVIDERS: ATTEND Nurse Practitioner Family
DX: R60.9 Edema, unspecified (principal)
CPT/HCPCS: 36415; 82310; 82374; 82435; 82565; 82947; 84132; 84295; 84520

== ENCOUNTER → 2018-04-20 | Outpatient (CLI) | payer MEDICARE, OTHER, MEDICAID ==
[2015-07-22 16:00] VITALS: BMI 31.4
== END ==
LOC: LAB 14:46
PROVIDERS: ATTEND Nurse Practitioner Family
DX: R60.9 Edema, unspecified (principal)
CPT/HCPCS: 36415; 82310; 82374; 82435; 82565; 82947; 84132; 84295; 84520

== ENCOUNTER → 2018-04-23 | Outpatient (CLI) | payer MEDICARE, OTHER, MEDICAID ==
[2015-07-22 16:00] VITALS: BMI 31.4
== END ==
LOC: SPU 07:05
PROVIDERS: ATTEND Nurse Practitioner Family
DX: R60.9 Edema, unspecified (principal)
CPT/HCPCS: 82310; 82374; 82435; 82565; 82947; 84132; 84295; 84520

== ENCOUNTER → 2018-05-04 | Outpatient (CLI) | payer MEDICARE, OTHER, MEDICAID ==
[2015-07-22 16:00] VITALS: BMI 31.4
[~2018-05-04] MED LIST changes: +FURO-47 PO
== END ==
LOC: LAB 09:37
PROVIDERS: ATTEND Nurse Practitioner Family
DX: R60.9 Edema, unspecified (principal)
CPT/HCPCS: 36415; 82310; 82374; 82435; 82565; 82947; 84132; 84295; 84520

== ENCOUNTER 2018-05-18 15:15 | Outpatient (RCR) | payer MEDICARE, OTHER, MEDICAID ==
[2015-07-22 16:00] VITALS: Wt 90.1 kg
[2018-03-02 16:00] LABS: PLATELET COUNT, AUTOMATED 100 K/uL (150-450)
[2018-03-02] MEDS: DARBEPOETIN ESRD 100 MCG/0.5ML SYR IVP PRN (16:31)
[2018-03-02 16:47] VITALS: BP 136/84
[2018-04-05 09:52] VITALS: BP 110/54
[2018-04-05 09:55] LABS: PLATELET COUNT, AUTOMATED 125 K/uL (150-450)
[2018-04-05] MEDS: DARBEPOETIN ESRD 100 MCG/0.5ML SYR IVP PRN (10:36)
[2018-04-23 15:54] VITALS: BP 134/64
[2018-04-23 16:11] LABS: PLATELET COUNT, AUTOMATED 89 K/uL (150-450)
[2018-04-23] MEDS: DARBEPOETIN ESRD 100 MCG/0.5ML SYR IVP PRN (16:33)
--- NOTE | 2018-04-24 21:46 | ONCOLOGY FOLLOW UP NOTE ---
EVENT DATE: April 23, 2018 CHIEF COMPLAINT Patient is seen for ongoing treatment of anemia. "I am doing okay, but my legs are swelling." HISTORY OF PRESENT ILLNESS Patient is an 87-year-old male who is being followed in the clinic for anemia of chronic disease. He receives Aranesp on a monthly basis, and this is maintaining his hemoglobin in the 9 to 11 g range. He has a remote history of prostate cancer. He presents today and feels he is doing well. He does complain of bilateral lower extremity edema which has been ongoing for some time. He is following up with his primary care provider and is on Lasix, but not sure that this is helping much. He complains of some mild constipation, but controls this with prune juice. Otherwise, he denies any new complaints. He lives in an assisted living facility and enjoys that. MEDICAL HISTORY 1. Paroxysmal supraventricular tachycardia. 2. Skin cancers. 3. GERD. 4. Osteoporosis. 5. Vitamin B deficiency. 6. Chronic anemia. 7. Remote history of prostate cancer. 8. Lumbar spinal stenosis. 9. Pulmonary hypertension. 10. Congestive heart failure. SURGICAL HISTORY 1. Lumbar laminectomy, 1979, 2011. 2. Bilateral orchiectomy, 1991. 3. Skin cancer excisions, 2009, 2011. 4. Abdominal surgeries x 5, s/p appendectomy, colostomy and takedown of colostomy. 5. Left ankle replacement, 2011. 6. Bilateral cataracts. 7. Right elbow ORIF. 8. Right arthroscopic knee surgery. 9. Left ankle tendon surgery. 10. Hand surgery for multiple trigger finger. FAMILY HISTORY Father had brain cancer at age 72. Mother had uterine cancer at age 67. Brother with brain tumor at age 80. SOCIAL HISTORY Patient is . He has two daughters. He is a retired dog groomer. He has two drinks per week. He quit smoking in 1999; prior to that he smoked two packs a day for 50 years. REVIEW OF SYSTEMS A 12-point review of systems is performed and is negative except as stated above. PHYSICAL EXAMINATION VITAL SIGNS: Weight 90.1 kg. BP 134/64, P 76, R 16, temp 98.1, O2 sat 96% on 1.5L per nasal cannula. Weight has been stable. HEAD: Atraumatic, normocephalic. Previous scarring noted from skin cancer removal on scalp. EYES: Sclerae anicteric. MOUTH: Moist mucous membranes. No lesions. NECK: Supple. No JVD. LYMPHATICS: No palpable adenopathy. LUNGS: Clear bilaterally. CARDIOVASCULAR: Heart rate regular, 76 per minute, without murmur, S3, or S4. EXTREMITIES: 2+ pretibial edema bilaterally. NEUROLOGIC: Nonfocal. SKIN: Darkened bruised appearing skin on both forearms. Pt states this has been there "for years". LABORATORY CBC today reveals a WBC of 7.8, hemoglobin 10.2, hematocrit 31.7, platelets 89,000. IMPRESSION AND PLAN The patient is an 87-year-old male who is being followed for anemia of chronic disease. 1. Anemia. Hemoglobin today is 10.2. He will receive Aranesp 200 mcg subcutaneously today and every four weeks for a hemoglobin <11. He has been receiving this on a monthly basis. 2. Prostate cancer, remote history. Recent PSAs have remained <1.0. 3. Thrombocytopenia, mild. This has been stable. He does have some darkened skin/bruising noted on his arms, but states this is long-standing. He denies any acute bleeding. Will continue to monitor trend. 4. Lower extremity edema. He does have a history of pulmonary hypertension and congestive heart failure. He is being followed by Jayleen Rubi, who is managing his diuretics. We discussed being careful with salt intake, and I also recommended he elevate his legs. He has no areas of skin breakdown. 5. Follow up monthly for Aranesp. 6. Follow up in four months with Dr. Sanchez for continued care. cc: Jayleen CUMMINGS
[2018-05-18 15:28] VITALS: BP 116/53
[2018-05-18 15:56] LABS: PLATELET COUNT, AUTOMATED 83 K/uL (150-450)
[2018-05-18] MEDS: DARBEPOETIN ESRD 100 MCG/0.5ML SYR IVP PRN (16:31)
== END 2018-05-30 ==
LOC: SPU 15:15
PROVIDERS: ATTEND Internal Medicine
DX: D46.4 Refractory anemia, unspecified (principal); D63.8 Anemia in other chronic diseases classified elsewhere; Z85.46 Personal history of malignant neoplasm of prostate
CPT/HCPCS: 36415; 85025; 96372; 96374; J0882; 82310; 82374; 82435; 82565; 82947; 84132; 84295; 84520

== ENCOUNTER → 2018-07-17 | Outpatient (CLI) | payer MEDICARE, OTHER, MEDICAID ==
[2015-07-22 16:00] VITALS: BMI 31.4
== END ==
LOC: ZZSPRING 01:18
PROVIDERS: ATTEND Nurse Practitioner Family
DX: R60.9 Edema, unspecified (principal)
CPT/HCPCS: 36415; 82310; 82374; 82435; 82565; 82947; 84132; 84295; 84520

== ENCOUNTER → 2018-08-07 | Outpatient (CLI) | payer MEDICARE, OTHER, MEDICAID ==
[2015-07-22 16:00] VITALS: BMI 31.4
== END ==
LOC: SPU 12:31
PROVIDERS: ATTEND Nurse Practitioner Family
DX: R60.0 Localized edema (principal); Z79.899 Other long term (current) drug therapy
CPT/HCPCS: 82040; 82247; 82310; 82374; 82435; 82565; 82947; 84075; 84132; 84155; 84295; 84450; 84460; 84520

== ENCOUNTER 2018-09-05 10:42 | Outpatient (RCR) | payer MEDICARE, OTHER, MEDICAID ==
[2015-07-22 16:00] VITALS: BMI 31.4
[2018-06-14 10:34] VITALS: BP 124/57
[2018-06-14 10:52] LABS: PLATELET COUNT, AUTOMATED 155 K/uL (150-450)
[2018-06-14] MEDS: DARBEPOETIN ESRD 100 MCG/0.5ML SYR SC PRN (11:49)
[2018-07-12 15:55] VITALS: BP 134/60
[2018-07-12 15:57] LABS: PLATELET COUNT, AUTOMATED 218 K/uL (150-450)
[2018-07-12] MEDS: DARBEPOETIN ESRD 100 MCG/0.5ML SYR SC PRN (16:28)
[2018-08-07 15:43] LABS: PLATELET COUNT, AUTOMATED 181 K/uL (150-450)
[2018-08-07] MEDS: DARBEPOETIN ESRD 100 MCG/0.5ML SYR SC PRN (16:07)
[~2018-09-05 10:42] MED LIST changes: +DARBEPOETIN ESRD 100 MCG/0.5ML SYR SC PRN; -DEXT237L; +DEXT237L PO
[2018-09-05 10:52] VITALS: BP 133/82
[2018-09-05 10:59] LABS: PLATELET COUNT, AUTOMATED 99 K/uL (150-450)
[2018-09-05] MEDS: DARBEPOETIN ESRD 100 MCG/0.5ML SYR SC PRN (11:45)
[2018-09-11] MEDS ORDERED: FURO-45 PO (11:49)
[2018-09-11] MEDS ORDERED: LOPE2CAP88 PO (22:04)
== END 2018-09-11 ==
LOC: SPU 10:42
PROVIDERS: ATTEND Internal Medicine
DX: D46.4 Refractory anemia, unspecified (principal); D63.8 Anemia in other chronic diseases classified elsewhere; Z85.46 Personal history of malignant neoplasm of prostate
CPT/HCPCS: 36415; 85025; 96372; J0882; 82040; 82247; 82310; 82374; 82435; 82565; 82947; 84075; 84132; 84155; 84295; 84450; 84460; 84520

== ENCOUNTER 2018-09-11 11:25 | Inpatient (IN) | payer MEDICARE, OTHER, MEDICAID ==
[~2018-09-11] VITALS: Ht 177.8 cm; Wt 89.8 kg
[~2018-09-11 11:25] MED LIST changes: -DARBEPOETIN ESRD 100 MCG/0.5ML SYR SC PRN
--- NOTE | 2018-09-11 11:39 | ER Report ---
History and Physical Time Seen By MD: 11:39 Hx. of Stated Complaint: RUQ/LOWER CHEST PAIN X 1 WEEK. DENIES N/V/D/C. REPORTS PAIN WITH POSITIONING. HPI/ROS CHIEF COMPLAINT: Abdominal pain HISTORY OF PRESENT ILLNESS: 88-year-old male patient presents to emergency room with complaint of right upper quadrant abdominal pain. Patient states that he has had this intermittently for the past several months. He states that within the last week things get worse. Patient states that his pain was even worse today. Patient states pain seems to come and go, however today the pain has been constant. He rates the pain a 8-9 out of 10. He denies any nausea, vomiting or diarrhea. Patient states that pain seems to be worse with any type of movement. He states that he lays down typically he feels okay, however when he gets up past the pain gets worse. Patient states that he drink and does not seem to affect the pain. Patient has not taken any medication for this. REVIEW OF SYSTEMS: Respiratory: No cough, no dyspnea. Cardiovascular: No chest pain, no palpitations. Gastrointestinal: As noted above Musculoskeletal: No back pain. Allergies: Coded Allergies: amiodarone (Verified Allergy, Unknown, 09/11/18) vancomycin (Verified Allergy, Unknown, 09/11/18) mirtazapine (Verified Adverse Reaction, Intermediate, MENTAL STATUS CHANGES, 09/11/18) Per pt and pt's daughter remeron caused increased irritability and decreased pscyhological coping skills. Home Meds Active Scripts Polyethylene Glycol 3350 (MIRALAX) 17 Gm Powd.pack, 8.5 GM PO DAILY PRN for CONSTIPATION, #1 BOTTLE 5 Refills Prov:VALE BUTT MD 12/12/17 Bethanechol Chloride (BETHANECHOL CHLORIDE) 25 Mg Tablet, 25 MG PO TID for 30 Days, #90 TAB 1 Refill Prov:PHOEBE LOJA MD 12/09/17 Tamsulosin Hcl (TAMSULOSIN HCL) 0.4 Mg Cap.er.24h, 0.4 MG PO QHS for 30 Days, #30 CAP 1 Refill Prov:PHOEBE LOJA MD 12/09/17 Pantoprazole Sodium (PANTOPRAZOLE SODIUM) 20 Mg Tablet.dr, 1 TAB PO QDAY, #90 TAB.SR 3 Refills Prov:RONNIE PACHECO APRN ASSOCIATE PROFESSOR OF CHEMISTRY-C 10/23/17 Bipap Home (BIPAP HOME) Inha, EACH QHS, #1 Prov:RONNIE PACHECO APRN ASSOCIATE PROFESSOR OF CHEMISTRY-C 09/10/15 Reported Medications Furosemide (FUROSEMIDE) 20 Mg Tablet, 1 TAB PO DAILY, TAB 09/11/18 Dextromethorphan Hb/Doxylamine (Robitussin Nighttime Cough Dm) 30 Mg-12.5 Mg/10 Ml Liquid 12/25/17 Mag Hydrox/Aluminum Hyd/Simeth (Maalox Advanced Suspension) 200 Mg-200 Mg-20 Mg/5 Ml Oral.susp 12/25/17 Aspirin (ASPIRIN) 325 Mg Tablet, 325 MG PO PRN PRN for CHEST PAIN, TAB 12/25/17 Calcium Carbonate (TUMS X-STR) 300 Mg Tab.chew, 750 MG PO Q2H, TAB.CHEW 12/25/17 Magnesium Hydroxide (MILK OF MAGNESIA) 400 Mg/5 Ml Oral.susp, 400 MG PO DAILY PRN for CONSTIPATION, BOTTLE 12/07/17 Levofloxacin 750 Mg Tab (LEVAQUIN 750 MG TAB) 750 Mg Tablet, 1 TAB PO QODAY 05/02/16 Oxygen (OXYGEN) Inha, 3 L INH cont, L 03/10/16 Bipap Home (BIPAP HOME) Inha, HS with oxygen 3 liters 03/10/16 Sodium Chloride (SALINE NASAL SPRAY) 30 Ml [place], 2 SPR NS Q4H PRN for nasal congestion, SPRAY 03/04/16 Discontinued Scripts Furosemide (FUROSEMIDE) 40 Mg Tablet, 1 TAB PO DAILY, #30 TAB 5 Refills Prov:RONNIE PACHECO APRNP-C 05/03/18 Past Medical/Surgical History Patient has a past medical history of PSVT, A. fib, sleep apnea, emphysema, C OPD, reflux, microhematuria, prostate cancer, arthritis, right hip fracture, back pain, skin cancer, alcohol use. Patient has a surgical history of appendectomy, colostomy, radical prostatectomy, ankle surgery, trigger finger, femur fracture, hip replacement, laminectomy, nasal surgery, cataract surgery bilaterally, basal cell skin cancer removed. Patient has a family medical history of diabetes, cancer. Reviewed Nurses Notes: Yes Hx Smoking: Yes Smoking Status: Former Smoker Exposure to Second Hand Smoke?: No Hx Substance Use Disorder: No Hx Alcohol Use: Yes Constitutional Vital Sign - Last 24 Hours 09/11/18 09/11/18 09/11/18 09/11/18 11:32 11:33 11:40 11:45 Temp 98.5 Pulse 90 69 Resp 18 B/P (MAP) 145/63 (90) 145/63 Pulse Ox 95 91 O2 Delivery Nasal Cannula O2 Flow Rate 2.0 09/11/18 09/11/18 09/11/18 09/11/18 12:00 12:15 12:30 12:45 Pulse 66 74 66 70 B/P (MAP) 126/57 (80) 140/64 (89) Pulse Ox 98 98 99 99 09/11/18 09/11/18 09/11/18 09/11/18 13:00 13:15 13:30 14:15 Pulse 78 72 74 B/P (MAP) 146/63 (90) 149/77 (101) Pulse Ox 90 98 96 92 09/11/18 09/11/18 09/11/18 09/11/18 14:30 14:45 15:00 15:15 Pulse 87 70 81 83 B/P (MAP) 133/63 (86) 146/70 (95) Pulse Ox 95 98 97 98 09/11/18 09/11/18 09/11/18 09/11/18 15:30 15:45 16:00 16:15 Pulse 80 77 77 71 B/P (MAP) 145/68 (93) 130/56 (80) Pulse Ox 97 96 96 96 09/11/18 09/11/18 09/11/18 09/11/18 16:30 16:45 17:00 17:15 Pulse 75 69 73 71 B/P (MAP) 139/67 (91) 135/57 (83) Pulse Ox 98 97 97 96 Physical Exam General Appearance: The patient is alert, has no immediate need for airway protection and no current signs of toxicity. Respiratory: Chest is non tender, lungs are clear to auscultation. Cardiac: regular rate and rhythm Gastrointestinal: Abdomen is soft and tender in the right upper quadrant, no masses, bowel sounds normal. Musculoskeletal: Neck: Neck is supple and non tender. Extremities have full range of motion and are non tender. Skin: No rashes or lesions. DIFFERENTIAL DIAGNOSIS: After history and physical exam differential diagnosis was considered for abdominal pain including but not limited to appendicitis, cholecystitis, gastritis and urinary tract infection. Medical Decision Making Data Points Result Diagram: 09/11/18 1224 09/11/18 1224 Laboratory Hematology Test 09/11/18 12:24 Red Blood Count 3.55 M/uL (4.00-5.60) Mean Corpuscular Volume 79.4 fL (80.0-96.0) Mean Corpuscular Hemoglobin 24.8 pg (26.0-33.0) Mean Corpuscular Hemoglobin Concent 31.2 g/dL (32.0-36.0) Red Cell Distribution Width 21.0 % (11.5-14.5) Mean Platelet Volume 10.2 fL (7.2-11.1) Neutrophils (%) (Auto) 53.3 % (39.4-72.5) Lymphocytes (%) (Auto) 18.4 % (17.6-49.6) Monocytes (%) (Auto) 26.4 % (4.1-12.4) Eosinophils (%) (Auto) 1.3 % (0.4-6.7) Basophils (%) (Auto) 0.6 % (0.3-1.4) Nucleated RBC Relative Count (auto) 0.0 /100WBC Neutrophils # (Auto) 6.4 K/uL (2.0-7.4) Lymphocytes # (Auto) 2.2 K/uL (1.3-3.6) Monocytes # (Auto) 3.2 K/uL (0.3-1.0) Eosinophils # (Auto) 0.2 K/uL (0.0-0.5) Basophils # (Auto) 0.1 K/uL (0.0-0.1) Nucleated RBC Absolute Count (auto) 0.00 K/uL Peripheral Blood Smear Yes Y/N Sodium Level 136 mmol/L (137-145) Potassium Level 4.5 mmol/L (3.5-5.0) Chloride Level 100 mmol/L (98-107) Carbon Dioxide Level 25 mmol/L (22-30) Blood Urea Nitrogen 28 mg/dl (9-21) Creatinine 2.30 mg/dl (0.66-1.25) Glomerular Filtration Rate Calc 26.9 Random Glucose 97 mg/dl (75-110) Calcium Level 9.7 mg/dl (8.4-10.2) Total Bilirubin 0.5 mg/dl (0.2-1.3) Aspartate Amino Transf (AST/SGOT) 19 U/L (0-35) Alanine Aminotransferase (ALT/SGPT) 13 U/L (0-56) Alkaline Phosphatase 87 U/L (0-126) Total Protein 8.1 g/dl (6.3-8.2) Albumin 4.5 g/dl (3.5-5.0) Amylase Level 68 U/L (0-110) Lipase 88 U/L (23-300) Chemistry Test 09/11/18 12:24 White Blood Count 12.1 k/uL (4.5-11.0) Red Blood Count 3.55 M/uL (4.00-5.60) Hemoglobin 8.8 g/dL (14.0-18.0) Hematocrit 28.1 % (42.0-52.0) Mean Corpuscular Volume 79.4 fL (80.0-96.0) Mean Corpuscular Hemoglobin 24.8 pg (26.0-33.0) Mean Corpuscular Hemoglobin Concent 31.2 g/dL (32.0-36.0) Red Cell Distribution Width 21.0 % (11.5-14.5) Platelet Count 130 K/uL (150-450) Mean Platelet Volume 10.2 fL (7.2-11.1) Neutrophils (%) (Auto) 53.3 % (39.4-72.5) Lymphocytes (%) (Auto) 18.4 % (17.6-49.6) Monocytes (%) (Auto) 26.4 % (4.1-12.4) Eosinophils (%) (Auto) 1.3 % (0.4-6.7) Basophils (%) (Auto) 0.6 % (0.3-1.4) Nucleated RBC Relative Count (auto) 0.0 /100WBC Neutrophils # (Auto) 6.4 K/uL (2.0-7.4) Lymphocytes # (Auto) 2.2 K/uL (1.3-3.6) Monocytes # (Auto) 3.2 K/uL (0.3-1.0) Eosinophils # (Auto) 0.2 K/uL (0.0-0.5) Basophils # (Auto) 0.1 K/uL (0.0-0.1) Nucleated RBC Absolute Count (auto) 0.00 K/uL Peripheral Blood Smear Yes Y/N Glomerular Filtration Rate Calc 26.9 Calcium Level 9.7 mg/dl (8.4-10.2) Total Bilirubin 0.5 mg/dl (0.2-1.3) Aspartate Amino Transf (AST/SGOT) 19 U/L (0-35) Alanine Aminotransferase (ALT/SGPT) 13 U/L (0-56) Alkaline Phosphatase 87 U/L (0-126) Total Protein 8.1 g/dl (6.3-8.2) Albumin 4.5 g/dl (3.5-5.0) Amylase Level 68 U/L (0-110) Lipase 88 U/L (23-300) EKG/Imaging Imaging CT PELVIS W/O CON HISTORY: left hip erythemia TECHNIQUE: Axial imaging performed through the pelvis and upper thighs with coronal and sagittal reformatting. No IV contrast administered. One of the following dose optimization techniques was utilized in the performance of this exam: Automated exposure control; adjustment of the mA and/or kV according to the patient's size; or use of an iterative reconstruction technique. Specific details can be referenced in the facility's radiology CT exam operational policy. CONTRAST: None COMPARISON: Comparison CT scans dated December and November 2017 FINDINGS: Patient had a remote left hip hemiarthroplasty with a femoral component. There is a prominent perihardware lucency seen around the femoral stem and fragmentation of the greater trochanter which is unchanged. There is a large pocket of dense fluid and/or debris surrounding the left hip joint measuring approximately 11 cm diameter which is unchanged from the previous study. There is chronic scarring seen in the subcutaneous fat in the surgical approach. Th ere is also a new subdermal well-circumscribed mass in the left flank which measures 40 Hounsfield units (axial image 27 series 3). It measures 3.4 x 2.4 cm diameter. The pelvis is intact without evidence of acute fracture. There is advanced multilevel degenerative disease of lumbar spine. Peace inectomies seen at L4 and L5 and there is 1 cm anterolisthesis L4 over L5 Urinary bladder unremarkable. Prominent stool seen in the cecum. Moderate atherosclerotic plaque seen in the aorta and iliac arteries. IMPRESSION: Remote left hip hemiarthroplasty with either chronic loosening or infection of the femoral prosthesis which is unchanged. There is a large pocket of surrounding debris and/or dense fluid at the left hip joint and fragmentation of the greater trochanter which is unchanged. There is a new well-circumscribed subdermal nodule in the left flank measuring 3.4 cm maximum dimension which has developed since January. It appears too well- circumscribed represent an abscess although abscess within the differential. Sebaceous cyst considered unlikely given it was not present previously.. Metastasis could be considered if patient has a history of malignancy (particularly melanoma). This lesion is readily amenable to percutaneous ultrasound-guided drainage or biopsy. Previous lumbar spine surgery with advanced multilevel disc disease and grade 1 spondylolisthesis L5 4-5. Report Dictated By: Perfecto Arias MD at 09/11/2018 2:33 PM Report E-Signed By: Perfecto Arias MD at 09/11/2018 2:50 PM ABDOMEN AP ERECT AND/OR DECUB HISTORY: right side pain COMPARISON: CT examination abdomen and pelvis December 2017. Gallbladder evaluation from today. FINDINGS: The bones are diffusely osteopenic. Left hip arthroplasty. Advanced multilevel degenerative changes noted in the visualized lumbar spine. Stable superior endplate deformity of L2. Compression fracture of T12, unchanged since previous CT examination. Nonobstructive bowel pattern without radiographic evidence of free air. No pneumatosis. IMPRESSION: 1. Nonobstructive bowel pattern without evidence of free air or radiographic evidence of acute bowel pathology. 2. Diffuse osteopenia with compression fractures of the spine, stable compared to previous CT examination. Report Dictated By: Kev García MD at 09/11/2018 2:34 PM Report E-Signed By: Kev García MD at 09/11/2018 2:36 PM CHEST PA LAT, RIBS RIGHT History: right side pain FINDINGS: Comparison studies: Comparison radiographs 12/25/2017 and 05/15/2017 Tubes and Lines: None Lungs and pleura: There is a 1 sq cm radiodensity which projects over the left anterior second rib unchanged from 2018 but new from 2017. There is subtle coarsened pulmonary interstitium in the lower lung yang best appreciated on lateral view without kathleen focal consolidation. Increasing calcification of the anterior cartilaginous ribs. Mediastinum: Cardiac silhouette appears quite prominent. This is due in part to technique and positioning but I cannot exclude aortic aneurysmal dilatation Cardiac silhouette: normal . Osseous structures: A BB was placed over the area of pain the right lower ribs. No displaced rib fractures are seen. There is multilevel degenerative disc disease through the lumbar spine without evidence of previous multilevel laminectomies. There is sclerosis and left scapula near the base of the co racoid process unchanged from 2018 IMPRESSION: Negative for acute trauma. No displaced rib fractures seen. Possible developing interstitial pulmonary fibrosis. 1 cm square-shaped density over the left anterior second rib appears to density represent a nodule and may be in the rib. Possible ascending aortic aneurysm. Given the above findings recommend follow-up chest CT Report Dictated By: Perfecto Arias MD at 09/11/2018 2:22 PM Report E-Signed By: Perfecto Arias MD at 09/11/2018 2:33 PM Abdominal ultrasound Indication: Right upper quadrant pain Comparison: CT examination abdomen and pelvis January 03, 2018 Findings: Liver measures 11.3 cm. Hepatic echotexture appears within normal limits without ductal dilatation, mass or contour abnormality. No ascites. Portal ve in is patent with normal directional flow. Gallbladder demonstrates multiple, echogenic shadowing stones. No evidence of wall thickening or pericholecystic fluid. Positive sonographic Ayers sign. Common duct measures 3.2 mm in maximum diameter with no evidence of shadowing stone. The head and proximal body of the pancreas is unremarkable. The distal body and tail is obscured by overlying bowel gas. Abdominal aorta and IVC are patent and unremarkable. The right kidney measures 9.6 x 5.0 x 4.8 cm without concerning mass or hydronephrosis. Simple appearing lower pole cyst is noted. IMPRESSION: 1. Cholelithiasis. There is a fixed stone within the region of gallbladder neck which measures approximately 11 mm. Positive sonographic Ayers's sign. There is no wall thickening or pericholecystic fluid to suggest over acute cholecystitis. If further evaluation is needed, HIDA scan could be performed. Report Dictated By: Kev García MD at 09/11/2018 2:06 PM Report E-Signed By: Kev García MD at 09/11/2018 2:10 PM ED Course/Re-evaluation ED Course Patient was admitted to examined, history and physical were obtained. Differential diagnoses were considered. On examination lungs are clear, heart was regular, abdomen was soft and tender in the right upper quadrant. A CBC, CMP, amylase, lipase, urinalysis were obtained. Patient did have a elevated white count of 12.1, no significant left shift. A gallbladder ultrasound was done which showed cholelithiasis with no ductal dilation, no wall thickening. Amylase and lipase were unremarkable. Urinalysis was negative. A chest x-ray was done which showed no acute cardiac or processes. An abdominal x-ray was done of both lying down and sitting up and showed a nonspecific bowel gas pattern. I discussed findings with the patient and his daughter. Daughter wanted me to be cognizant of an area on his left hip, which has been replaced, which was erythematous. We did evaluate that. I did do a bedside ultrasound and found no obvious fluid. We also decided to do a CT scan of the pelvis for further evaluation. It did show a circular lesion just under the skin which could be an abscess, a cyst or malignancy. Discussed this with the daughter. She felt there would be no concern for as he has not had any cancer other than basal cell skin cancer. We did opt to do an I&D as described below. Cultures were obtained and sent him to the lab although it did appear to be just sanguinous drainage. I discussed the case with Dr. Alberts, hospitalist, who live discussed the case with the surgeon. Dr. Salgado, general surgery, who agreed to accept the patient for admission and will admit him treat with antibiotics and monitor how he does. I discussed this with the patient and his daughter. They verbalized understanding and agreement with plan. Procedure: Abscess drainage. The patient's abscess was located on the left hip. I obtained verbal consent from the patient to drain the abscess who was informed about the possibility of bleeding and pain. The abscess was incised with a scalpel and a moderate amount of bloody drainage was expressed. I dressed the wound with a bandage. The patient tolerated the procedure well. The procedure was performed by myself. Decision to Disposition Date: Sep 11, 2018 Decision to Disposition Time: 18:30 Depart Departure Latest Vital Signs Vital Signs Date Time Temp Pulse Resp B/P (MAP) Pulse Ox O2 Delivery O2 Flow Rate FiO2 09/11/18 17:15 71 96 09/11/18 17:00 135/57 (83) 09/11/18 11:40 2.0 09/11/18 11:33 98.5 18 Nasal Cannula Impression: Primary Impression: Cholelithiasis Condition: Condition Unchanged Disposition: Admitted from ER Referrals: RONNIE PACHECO APRN ASSOCIATE PROFESSOR OF CHEMISTRY-C (PCP) Problem Qualifiers Primary Impression: Cholelithiasis Cholelithiasis location: gallbladder Cholecystitis presence: with cholecystitis Cholecystitis acuity: acute and chronic Biliary obstruction: without biliary obstruction Qualified Codes: K80.12 - Calculus of gallbladder with acute and chronic cholecystitis without obstruction EVETTE LOBO ASSOCIATE PROFESSOR OF CHEMISTRY Sep 11, 2018 11:39
[2018-09-11] MEDS ORDERED: FURO-45 PO (11:49)
[2018-09-11 12:37] LABS: PLATELET COUNT, AUTOMATED 130 K/uL (150-450)
[2018-09-11] MEDS ORDERED: MORPHINE 2 MG/ML SYR IVP ONE (13:50)
--- NOTE | 2018-09-11 14:16 | RADIOLOGY IMAGING REPORT ---
FACILITY: [facility] PATIENT NAME: Alok Edwards : 1930 MR: [id number] V: [id number] EXAM DATE: ORDERING PHYSICIAN: EVETTE OLBO TECHNOLOGIST: Location: [facility] [place] Patient: Alok Edwards : 1930 Visit/Account:[id number] Date of Sevice: 09/11/2018 Abdominal ultrasound Indication: Right upper quadrant pain Comparison: CT examination abdomen and pelvis January 03, 2018 Findings: Liver measures 11.3 cm. Hepatic echotexture appears within normal limits without ductal dilatation, mass or contour abnormality. No ascites. Portal vein is patent with normal directional flow. Gallbladder demonstrates multiple, echogenic shadowing stones. No evidence of wall thickening or per icholecystic fluid. Positive sonographic Ayers sign. Common duct measures 3.2 mm in maximum diameter with no evidence of shadowing stone. The head and proximal body of the pancreas is unremarkable. The distal body and tail is obscured by o verlying bowel gas. Abdominal aorta and IVC are patent and unremarkable. The right kidney measures 9.6 x 5.0 x 4.8 cm without concerning mass or hydronephrosis. Simple appea ring lower pole cyst is noted. IMPRESSION: 1. Cholelithiasis. There is a fixed stone within the region of gallbladder neck which measures appro ximately 11 mm. Positive sonographic Ayers's sign. There is no wall thickening or pericholecystic fluid to suggest over acute cholecystitis. If further evaluation is needed, HIDA scan could be performed. Report Dictated By: Kev García MD at 09/11/2018 2:06 PM Report E-Signed By: Kev García MD at 09/11/2018 2:10 PM WSN:[email or web address]
--- NOTE | 2018-09-11 14:38 | RADIOLOGY IMAGING REPORT ---
FACILITY: [facility] PATIENT NAME: Alok Edwards : 1930 MR: [id number] V: [id number] EXAM DATE: ORDERING PHYSICIAN: EVETTE LOBO TECHNOLOGIST: Location: [facility] [place] Patient: Alok Edwards : 1930 Visit/Account:[id number] Date of Sevice: 09/11/2018 CHEST PA LAT, RIBS RIGHT History: right side pain FINDINGS: Comparison studies: Comparison radiographs 12/25/2017 and 05/15/2017 Tubes and Lines: None Lungs and pleura: There is a 1 sq cm radiodensity which projects over the left anterior second rib unchanged from 2018 but new from 2017. There is subtle coarsened pulmonary interstitium in the lower lung yang best appreciated on lateral view without kathleen focal consolidation. Increasing calcification of the anterior cartilaginous ribs . Mediastinum: Cardiac silhouette appears quite prominent. This is due in part to technique and posit ioning but I cannot exclude aortic aneurysmal dilatation Cardiac silhouette: normal . Osseous structures: A BB was placed over the area of pain the right lower ribs. No displaced rib fr actures are seen. There is multilevel degenerative disc disease through the lumbar spine without froylan dence of previous multilevel laminectomies. There is sclerosis and left scapula near the base of the coracoid process unchanged from 2018 IMPRESSION: Negative for acute trauma. No displaced rib fractures seen. Possible developing interstitial pulmonary fibrosis. 1 cm square-shaped density over the left anterior second rib appears to density represent a nodule an d may be in the rib. Possible ascending aortic aneurysm. Given the above findings recommend follow-up chest CT Report Dictated By: Perfecto Arias MD at 09/11/2018 2:22 PM Report E-Signed By: Perfecto Arias MD at 09/11/2018 2:33 PM WSN:[email or web address]
--- NOTE | 2018-09-11 14:39 | RADIOLOGY IMAGING REPORT ---
FACILITY: [facility] [place] PATIENT NAME: Alok Edwards : 1930 MR: [id number] V: [id number] EXAM DATE: ORDERING PHYSICIAN: EVETTE LOBO TECHNOLOGIST: Location: [facility] Patient: Alok Edwards : 1930 Visit/Account:[id number] Date of Sevice: 09/11/2018 CHEST PA LAT, RIBS RIGHT History: right side pain FINDINGS: Comparison studies: Comparison radiographs 12/25/2017 and 05/15/2017 Tubes and Lines: None Lungs and pleura: There is a 1 sq cm radiodensity which projects over the left anterior second rib unchanged from 2018 but new from 2017. There is subtle coarsened pulmonary interstitium in the lower lung yang best appreciated on lateral view without kathleen focal consolidation. Increasing calcification of the anterior cartilaginous ribs . Mediastinum: Cardiac silhouette appears quite prominent. This is due in part to technique and posit ioning but I cannot exclude aortic aneurysmal dilatation Cardiac silhouette: normal . Osseous structures: A BB was placed over the area of pain the right lower ribs. No displaced rib fr actures are seen. There is multilevel degenerative disc disease through the lumbar spine without froylan dence of previous multilevel laminectomies. There is sclerosis and left scapula near the base of the coracoid process unchanged from 2018 IMPRESSION: Negative for acute trauma. No displaced rib fractures seen. Possible developing interstitial pulmonary fibrosis. 1 cm square-shaped density over the left anterior second rib appears to density represent a nodule an d may be in the rib. Possible ascending aortic aneurysm. Given the above findings recommend follow-up chest CT Report Dictated By: Perfecto Arias MD at 09/11/2018 2:22 PM Report E-Signed By: Perfecto Arias MD at 09/11/2018 2:33 PM WSN:[email or web address]
--- NOTE | 2018-09-11 14:41 | RADIOLOGY IMAGING REPORT ---
FACILITY: [facility] - [place], [place] PATIENT NAME: Alok Edwards : 1930 MR: [id number] V: [id number] EXAM DATE: ORDERING PHYSICIAN: EVETTE LOBO TECHNOLOGIST: Location: [facility] - [place] Patient: Alok Edwards : 1930 Visit/Account:[id number] Date of Sevice: 09/11/2018 ABDOMEN AP ERECT AND/OR DECUB HISTORY: right side pain COMPARISON: CT examination abdomen and pelvis December 2017. Gallbladder evaluation from today. FINDINGS: The bones are diffusely osteopenic. Left hip arthroplasty. Advanced multilevel degenerative changes noted in the visualized lumbar spine. Stable superior endplate deformity of L2. Compression fractu re of T12, unchanged since previous CT examination. Nonobstructive bowel pattern without radiographic evidence of free air. No pneumatosis. IMPRESSION: 1. Nonobstructive bowel pattern without evidence of free air or radiographic evidence of acute bowel pathology. 2. Diffuse osteopenia with compression fractures of the spine, stable compared to previous CT examin ation. Report Dictated By: Kev García MD at 09/11/2018 2:34 PM Report E-Signed By: Kev García MD at 09/11/2018 2:36 PM WSN:[email or web address]
--- NOTE | 2018-09-11 14:54 | RADIOLOGY IMAGING REPORT ---
FACILITY: [facility] - [place] PATIENT NAME: Alok Edwards : 1930 MR: [id number] V: [id number] EXAM DATE: ORDERING PHYSICIAN: EVETTE LOBO TECHNOLOGIST: Location: [facility] - [place] Patient: Alok Edwards : 1930 Visit/Account:[id number] Date of Sevice: 09/11/2018 CT PELVIS W/O CON HISTORY: left hip erythemia TECHNIQUE: Axial imaging performed through the pelvis and upper thighs with coronal and sagittal ref ormatting. No IV contrast administered. One of the following dose optimization techniques was utilized in the performance of this exam: Autom ated exposure control; adjustment of the mA and/or kV according to the patient's size; or use of an i terative reconstruction technique. Specific details can be referenced in the facility's radiology C T exam operational policy. CONTRAST: None COMPARISON: Comparison CT scans dated December and November 2017 FINDINGS: Patient had a remote left hip hemiarthroplasty with a femoral component. There is a prominent periha rdware lucency seen around the femoral stem and fragmentation of the greater trochanter which is unch anged. There is a large pocket of dense fluid and/or debris surrounding the left hip joint measurin g approximately 11 cm diameter which is unchanged from the previous study. There is chronic scarring seen in the subcutaneous fat in the surgical approach. There is also a new subdermal well-circumscr ibed mass in the left flank which measures 40 Hounsfield units (axial image 27 series 3). It measure s 3.4 x 2.4 cm diameter. The pelvis is intact without evidence of acute fracture. There is advanced multilevel degenerative disease of lumbar spine. Laminectomies seen at L4 and L5 a nd there is 1 cm anterolisthesis L4 over L5 Urinary bladder unremarkable. Prominent stool seen in the cecum. Moderate atherosclerotic plaque se en in the aorta and iliac arteries. IMPRESSION: Remote left hip hemiarthroplasty with either chronic loosening or infection of the femoral prosthesis which is unchanged. There is a large pocket of surrounding debris and/or dense fluid at the left hi p joint and fragmentation of the greater trochanter which is unchanged. There is a new well-circumscribed subdermal nodule in the left flank measuring 3.4 cm maximum dimensi on which has developed since January. It appears too well-circumscribed represent an abscess although abscess within the differential. Sebaceous cyst considered unlikely given it was not present previo usly.. Metastasis could be considered if patient has a history of malignancy (particularly melanoma) . This lesion is readily amenable to percutaneous ultrasound-guided drainage or biopsy. Previous lumbar spine surgery with advanced multilevel disc disease and grade 1 spondylolisthesis L5 4-5. Report Dictated By: Perfecto Arias MD at 09/11/2018 2:33 PM Report E-Signed By: Perfecto Arias MD at 09/11/2018 2:50 PM WSN:[email or web address]
--- NOTE | 2018-09-11 17:14 | Gen Surgery History & Physical ---
History of Present Illness Chief Complaint RUQ abdominal pain History of Present Illness 88 yo male with 6 hour hx RUQ abdominal pain, associated with mild nausea, no vomiting. No FCS. No symptoms. Similar s/s one year ago per pt report, [facility] those records not available. US today revealed cholethiasis with stone at the neck. No pericholecystic fluid, thick walled or dilated ducts. He has had multilpe underlying co- morbidities, underlying prostate CA with chronic anemia. No evidence of prior colonoscopy that I can see. He walks short distances with a walker and otherwise uses an electric wheel chair. He resides at [facility]. History Unable To Obtain Past Medical: Home Meds Active Scripts Polyethylene Glycol 3350 (MIRALAX) 17 Gm Powd.pack, 8.5 GM PO DAILY PRN for CONSTIPATION, #1 BOTTLE 5 Refills Prov:VALE BUTT MD 12/12/17 Bethanechol Chloride (BETHANECHOL CHLORIDE) 25 Mg Tablet, 25 MG PO TID for 30 Days, #90 TAB 1 Refill Prov:PHOEBE LOJA MD 12/09/17 Tamsulosin Hcl (TAMSULOSIN HCL) 0.4 Mg Cap.er.24h, 0.4 MG PO QHS for 30 Days, #30 CAP 1 Refill Prov:PHOEBE LOJA MD 12/09/17 Pantoprazole Sodium (PANTOPRAZOLE SODIUM) 20 Mg Tablet.dr, 1 TAB PO QDAY, #90 TAB.SR 3 Refills Prov:RONNIE PACHECO APRN-C 10/23/17 Bipap Home (BIPAP HOME) Inha, EACH QHS, #1 Prov:RONNIE PACHECO APRNP-C 09/10/15 Reported Medications Furosemide (FUROSEMIDE) 20 Mg Tablet, 1 TAB PO DAILY, TAB 09/11/18 Dextromethorphan Hb/Doxylamine (Robitussin Nighttime Cough Dm) 30 Mg-12.5 Mg/10 Ml Liquid 12/25/17 Mag Hydrox/Aluminum Hyd/Simeth (Maalox Advanced Suspension) 200 Mg-200 Mg-20 Mg/5 Ml Oral.susp 12/25/17 Aspirin (ASPIRIN) 325 Mg Tablet, 325 MG PO PRN PRN for CHEST PAIN, TAB 12/25/17 Calcium Carbonate (TUMS X-STR) 300 Mg Tab.chew, 750 MG PO Q2H, TAB.CHEW 12/25/17 Magnesium Hydroxide (MILK OF MAGNESIA) 400 Mg/5 Ml Oral.susp, 400 MG PO DAILY PRN for CONSTIPATION, BOTTLE 12/07/17 Levofloxacin 750 Mg Tab (LEVAQUIN 750 MG TAB) 750 Mg Tablet, 1 TAB PO QODAY 05/02/16 Oxygen (OXYGEN) Inha, 3 L INH cont, L 03/10/16 Bipap Home (BIPAP HOME) Inha, HS with oxygen 3 liters 03/10/16 Sodium Chloride (SALINE NASAL SPRAY) 30 Ml [place], 2 SPR NS Q4H PRN for nasal congestion, SPRAY 03/04/16 Discontinued Scripts Furosemide (FUROSEMIDE) 40 Mg Tablet, 1 TAB PO DAILY, #30 TAB 5 Refills Prov:RONNIE PACHECO APRN CANAL STRUCTURE OPERATOR-C 05/03/18 Allergies: Coded Allergies: amiodarone (Verified Allergy, Unknown, 09/11/18) vancomycin (Verified Allergy, Unknown, 09/11/18) mirtazapine (Verified Adverse Reaction, Intermediate, MENTAL STATUS CHANGES, 09/11/18) Per pt and pt's daughter remeron caused increased irritability and decreased pscyhological coping skills. Patient History: FH: brain cancer FATHER (Father had brain cancer at age 72) BROTHER OR SISTER (Brother with brain tumor at the age of 80) FH: uterine cancer MOTHER (had uterine cancer at the age of 67) Review of Systems All Systems Reviewed/Normal: Yes, Except as Noted Gastrointestinal: Other (see HPI) Exam General Appearance: Alert, Awake, No Acute Distress, Afebrile Cardiovascular: Normal Rhythm & Peripheral Pulses, Regular Rate and Rhythm, No JVD Respiratory: No Respiratory Distress, Clear to Auscultation GI: Abd Soft and Non-Tender, Other (soft, midline scar, no hernia, no mass, mild RUQ tenderness with equivocal Ayers's sign) Musculoskeletal: No Weakness/Pain Extremities: Warm, Perfused Integumentary: Skin Intact without Lesion / Mass Psych: Alert & Oriented X3, Appropriate Mood & Affect Medical Decision Making Data Points Result Diagram: 09/11/18 1224 09/11/18 1224 EKG / Imaging Monitor Interpretation: Normal Sinus Rhythm Pre-Admit Course Medical Record Review: Yes Assessment and Plan Problems: (1) Cholelithiasis Status: Acute Assessment & Plan: 88 yo male with multiple co-morbidities with symptomatic cholelithiasis possible early cholecystitis. Will admit with bowel rest, IV antibiotics, and close clinical observation. Suspect he will require cholecystectomy given stone appears impacted at the neck of his gallbladder. Will ask internal medicine to consult to optimize his cardiopulm status. (2) Anemia of chronic disease Status: Chronic Assessment & Plan: Long standing anemia due to presumed underlying CA and CKD. Need to consider colonoscopic evaluation to rule out colonic source of anemia. (3) COPD (chronic obstructive pulmonary disease) Status: Chronic (4) History of prostate cancer Status: Chronic (5) CKD (chronic kidney disease) stage 3, GFR 30-59 ml/min Status: Chronic Time Spent: > 30 min Critical Time Spent: 1st 30-74 Minutes Venous Thromboembolism VTE Risk Physician Assess for VTE Risk: Yes Patient's VTE Risk: High VTE Diagnostic Test 2 Days Prior to Admit: No Antithrombotics Is Pt On Any Antithrombotics?: No Problem Qualifiers (1) Cholelithiasis: Cholelithiasis location: gallbladder Cholecystitis presence: with cholecystitis Cholecystitis acuity: acute and chronic Biliary obstruction: without biliary obstruction Qualified Codes: K80.12 - Calculus of gallbladder with acute and chronic cholecystitis without obstruction ALEXA OLMOS MD Sep 11, 2018 17:14
[2018-09-11] MEDS ORDERED: PIPERACILLIN/TAZO*3.375GM VIAL 3.375 GM in NS(*) 0.9% 100 ML ADDVANT BAG 100 ML IVPB ONE (17:25)
[2018-09-11] MEDS ORDERED: LR(*) 1000 ML BAG 1,000 ML ONE (17:53)
[2018-09-11] MEDS ORDERED: ACETAMINOPHEN 325 MG TAB PO PRN (18:20)
[2018-09-11] MEDS ORDERED: NALOXONE HCL 0.4 MG/ML VIAL IVP PRN (18:20)
[2018-09-11] MEDS ORDERED: D5 1/2 NS(*) 1000 ML BAG 1,000 ML IV PRN (18:20)
[2018-09-11] MEDS ORDERED: ONDANSETRON 4 MG/2 ML VIAL IVP PRN (18:20)
[2018-09-11 19:33] VITALS: BP 134/53
[2018-09-11] MEDS ORDERED: LOPE2CAP88 PO (22:04)
[2018-09-11] MEDS: TAMSULOSIN HCL 0.4 MG CAP PO SCH (22:35)
[2018-09-11] MEDS ORDERED: SALINE 0.65% NAS SPR 44 ML BTL PRN (22:35)
[2018-09-11] MEDS ORDERED: ALBUTEROL 2.5 MG/3 ML NEB NEB PRN (22:35)
[2018-09-11] MEDS: PIPERACILLIN/TAZO SOD* 2.25 GM 2.25 GM in NS(*) 0.9% 100 ML ADDVANT BAG 100 ML IVPB SCH (23:19)
--- NOTE | 2018-09-11 23:24 | Hospitalist Consultation ---
History of Present Illness Requesting Physician Damian Reason for Consult Medication management History of Present Illness 88yo male with a h/o COPD, NICOLETTE, CKD and chronically on Levofloxacin for suppressive treatment of osteomyelitis in hip hardware who came to the ER for RUQ pain and was found to have acute cholelithiasis with possible early cholecystitis. He was admitted by Dr. Salgado. The patient denies any chest pain with activity (only ambulates with a walker short distances), SOB, orthopnea, or worsening LE edema. He denies a h/o CAD, CVD, CHF, or DVT/PE. He never had complications with anesthetics. 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 Need to consider colonoscopic evaluation to rule out colonic source of anemia. (7) CKD (chronic kidney disease) stage 3, GFR 30-59 ml/min Status: Chronic (8) GERD (gastroesophageal reflux disease) Status: Chronic (9) History of appendectomy Status: Resolved (10) History of orchiectomy, bilateral Status: Resolved (11) S/P right knee arthroscopy Status: Resolved (12) Hx of abdominal surgery Status: Resolved (13) Status post lumbar laminectomy Status: Resolved (14) S/P laminectomy Status: Chronic (15) Elbow joint replacement status Status: Chronic (16) S/P surgical manipulation of ankle joint Status: Chronic Home Meds Active Scripts Polyethylene Glycol 3350 (MIRALAX) 17 Gm Powd.pack, 8.5 GM PO DAILY PRN for CONSTIPATION, #1 BOTTLE 5 Refills Prov:VALE BUTT MD 12/12/17 Tamsulosin Hcl (TAMSULOSIN HCL) 0.4 Mg Cap.er.24h, 0.4 MG PO QHS for 30 Days, #30 CAP 1 Refill Prov:PHOEBE LOJA MD 12/09/17 Pantoprazole Sodium (PANTOPRAZOLE SODIUM) 20 Mg Tablet.dr, 1 TAB PO QDAY, #90 TAB.SR 3 Refills Prov:RONNIE PACHECO APRN HEATING WORKER-C 10/23/17 Bipap Home (BIPAP HOME) Inha, EACH QHS, #1 Prov:RONNIE PACHECO APRN HEATING WORKER-C 09/10/15 Reported Medications Loperamide Hcl (LOPERAMIDE) 2 Mg Capsule, 2 MG PO, CAPSULE 09/11/18 Furosemide (FUROSEMIDE) 20 Mg Tablet, 2 TAB PO DAILY, TAB 09/11/18 Dextromethorphan Hb/Doxylamine (Robitussin Nighttime Cough Dm) 30 Mg-12.5 Mg/10 Ml Liquid, 5 ML PO Q4-6H PRN for COUGH MDD 4 12/25/17 Mag Hydrox/Aluminum Hyd/Simeth (Maalox Advanced Suspension) 200 Mg-200 Mg-20 Mg/5 Ml Oral.susp 12/25/17 Aspirin (ASPIRIN) 325 Mg Tablet, 325 MG PO ONCE PRN for CHEST PAIN, TAB 12/25/17 Calcium Carbonate (TUMS X-STR) 300 Mg Tab.chew, 750 MG PO Q2H, TAB.CHEW 12/25/17 Magnesium Hydroxide (MILK OF MAGNESIA) 400 Mg/5 Ml Oral.susp, 400 MG PO DAILY PRN for CONSTIPATION, BOTTLE 12/07/17 Levofloxacin 750 Mg Tab (LEVAQUIN 750 MG TAB) 750 Mg Tablet, 1 TAB PO QODAY 05/02/16 Oxygen (OXYGEN) Inha, 3 L INH cont, L 03/10/16 Bipap Home (BIPAP HOME) Inha, HS with oxygen 3 liters 03/10/16 Sodium Chloride (SALINE NASAL SPRAY) 30 Ml [place], 2 SPR NS Q4H PRN for nasal congestion, SPRAY 03/04/16 Discontinued Scripts Furosemide (FUROSEMIDE) 40 Mg Tablet, 1 TAB PO DAILY, #30 TAB 5 Refills Prov:RONNIE PACHECO APRN HEATING WORKER-C 05/03/18 Bethanechol Chloride (BETHANECHOL CHLORIDE) 25 Mg Tablet, 25 MG PO TID for 30 Days, #90 TAB 1 Refill Prov:PHOEBE LOJA MD 12/09/17 Allergies: Coded Allergies: amiodarone (Verified Allergy, Unknown, 09/11/18) vancomycin (Verified Allergy, Unknown, 09/11/18) mirtazapine (Verified Adverse Reaction, Intermediate, MENTAL STATUS CHANGES, 09/11/18) Per pt and pt's daughter remeron caused increased irritability and decreased pscyhological coping skills. Patient History: FH: brain cancer FATHER (Father had brain cancer at age 72) BROTHER OR SISTER (Brother with brain tumor at the age of 80) FH: uterine cancer MOTHER (had uterine cancer at the age of 67) Other Social/Family Hx Quit smoking in 2004 and smoked for 50 years. Occasional alcohol use. Hx Smoking: Yes Smoking Status: Former Smoker Exposure to Second Hand Smoke?: No Caffeine Intake: Coffee, Tea, Soda Caffeine/Cups Per Day: 2 or 3 Hx Alcohol Use: Yes Hx Substance Use Disorder: No Social Drug Use: Never Review of Systems All Systems Reviewed/Normal: Yes, Except as Noted Exam Vital Signs Vital Signs Date Time Temp Pulse Resp B/P (MAP) Pulse Ox O2 Delivery O2 Flow Rate FiO2 09/11/18 19:33 100 Nasal Cannula 2.0 09/11/18 19:33 98.2 72 22 134/53 (80) General Appearance: Alert, Awake, No Acute Distress Cardiovascular: Regular Rate and Rhythm, No JVD Respiratory: Clear to Auscultation (But has some upper airway secretions that he clears frequently. Possible mild work of breathing) GI: Other (Soft, non-distended. Some pain in the RUQ with palpation) Extremities: Edema (trace-1+ pitting in ankles to mid shins (chronic)) Medical Decision Making Data Points Result Diagram: 09/11/18 1224 09/11/18 1224 Item Value Date Time Mean Corpuscular Volume 79.4 fL L 09/11/18 1224 Platelet Count 130 K/uL L 09/11/18 1224 Mean Corpuscular Volume 78.1 fL L 09/05/18 1045 Hemoglobin 10.6 g/dL L 08/07/18 0000 Hemoglobin 9.0 g/dL *L 09/05/18 1045 Hemoglobin 8.8 g/dL *L 09/11/18 1224 Mean Corpuscular Volume 82.2 fL 08/07/18 0000 Platelet Count 181 K/uL 08/07/18 0000 Platelet Count 99 K/uL L 09/05/18 1045 Creatinine 1.80 mg/dl H 07/17/18 0748 Creatinine 1.90 mg/dl H 08/07/18 1525 Creatinine 2.30 mg/dl H 09/11/18 1224 Total Bilirubin 0.5 mg/dl 09/11/18 1224 Aspartate Amino Transf (AST/SGOT) 19 U/L 09/11/18 1224 Alanine Aminotransferase (ALT/SGPT) 13 U/L 09/11/18 1224 Alkaline Phosphatase 87 U/L 09/11/18 1224 EKG / Imaging Imaging Pelvis CT - Remote left hip hemiarthroplasty with either chronic loosening or infection of the femoral prosthesis which is unchanged. There is a large pocket of surrounding debris and/or dense fluid at the left hip joint and fragmentation of the greater trochanter which is unchanged. There is a new well-circumscribed subdermal nodule in the left flank measuring 3.4 cm maximum dimension which has developed since January. It appears too well- circumscribed represent an abscess although abscess within the differential. Sebaceous cyst considered unlikely given it was not present previously.. Metastasis could be considered if patient has a history of malignancy (particularly melanoma). This lesion is readily amenable to percutaneous ultrasound-guided drainage or biopsy. Previous lumbar spine surgery with advanced multilevel disc disease and grade 1 spondylolisthesis L5 4-5. Abd Xray - 1. Nonobstructive bowel pattern without evidence of free air or radiographic evidence of acute bowel pathology. 2. Diffuse osteopenia with compression fractures of the spine, stable compared to previous CT examination. CXR - Negative for acute trauma. No displaced rib fractures seen. Possible developing interstitial pulmonary fibrosis. 1 cm square-shaped density over the left anterior second rib appears to density represent a nodule and may be in the rib. Possible ascending aortic aneurysm. Given the above findings recommend follow-up chest CT Gall Bladder US - 1. Cholelithiasis. There is a fixed stone within the region of gallbladder neck which measures approximately 11 mm. Positive sonographic Ayers's sign. There is no wall thickening or pericholecystic fluid to suggest over acute cholecystitis. If further evaluation is needed, HIDA scan could be performed. Rib Xray - Negative for acute trauma. No displaced rib fractures seen. Possible developing interstitial pulmonary fibrosis. 1 cm square-shaped density over the left anterior second rib appears to density represent a nodule and may be in the rib. Possible ascending aortic aneurysm. Given the above findings recommend follow-up chest CT Assessment and Plan Problems: (1) Pre-op evaluation Status: Acute Assessment & Plan: He has a moderate risk of pulmonary complications secondary to COPD, age, long smoking history and CXR suggesting early pulmonary fibrosis. He reports breathing at baseline and lungs were relatively clear. Will start s cheduled DuoNeb. He has a moderate risk of cardiac complications secondary age, smoking history, history of elevated BNP, history of SVT. He sounds regular. Awaiting ECG. He has a high risk for post-operative delirium secondary to age and multiple medical problems. 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 Taking all of his chronic diseases into consideration, surgery d oes pose a significant risk. There is no further testing that needs to be done. There are no medications or interventions that will lower his risk of complications. However, he certainly could benefit from being at a hospital with more specialty care that could deal with potential complications from surgery. (2) CKD (chronic kidney disease) stage 3, GFR 30-59 ml/min Status: Chronic Assessment & Plan: Baseline creatinine is 1.8 to 2.0. Currently at 2.3. Getting fluids and Lasix will be held. Follow creatinine. (3) COPD (chronic obstructive pulmonary disease) Status: Chronic Assessment & Plan: Lungs are relatively clear, but he does seem to clear a lot of mucus. See above. (4) Osteomyelitis of left hip Status: Chronic Assessment & Plan: He is chronically on Levofloxacin 750mg every other day. It isn't exactly clear what organism is being covered based on the different culture results that we have in the past. Will continue Levofloxacin for now with the Zosyn. He did have the subdermal nodule (seen on CT) aspirated in the ER, which only showed blood. (5) Abnormal CXR Status: Chronic Assessment & Plan: 1cm square density of the left anterior second rib that was seen in 2018, but not in 2017. Radiology recommends a follow CT at some point. Also, there appears to be a possible developing interstitial pulmonary fibrosis. (6) NICOLETTE treated with BiPAP Status: Chronic Assessment & Plan: Continue chronic CPAP or BIPAP. (7) Anemia of chronic disease Status: Chronic Assessment & Plan: Hgb decreased. He intermittently receives Aranesp and apparently received a dose last week. Will follow. (8) SVT (supraventricular tachycardia) Status: Resolved Copies to: RONNIE PACHECO APRN HEATING WORKER-C; ALEXA SALGADO MD ; Venous Thromboembolism Antithrombotics Is Pt On Any Antithrombotics?: No Exam Sepsis Risk: Severe Sepsis Risk DIALLO MUSE MD Sep 11, 2018 23:24
--- NOTE | 2018-09-11 23:31 | EKG ---
FACILITY: [facility] - [place] PATIENT NAME: ALONDRA MILIAN : [id number] MR: [id number] V: [id number] EXAM DATE: ORDERING PHYSICIAN: DIALLO MUSE TECHNOLOGIST: SANTIAGO Test Reason : HX AFIB Blood Pressure : / mmHG Vent. Rate : 063 BPM Atrial Rate : 063 BPM P-R Int : 170 ms QRS Dur : 096 ms QT Int : 426 ms P-R-T Axes : 057 -31 084 degrees QTc Int : 435 ms Normal sinus rhythm Left axis deviation Septal infarct , age undetermined R wave progression consistent old ant/sep CO vs lead placement Confirmed by DIALLO MUSE ([id number]) on 09/12/2018 7:38:29 AM Referred By: Confirmed By:DIALLO MUSE
[2018-09-12] VITALS (14 sets, daily range): BP systolic 76–155; BP diastolic 37–81; Ht 177.8 cm; Wt 89.8 kg
[2018-09-12] MEDS: ALBUTEROL/IPRATROPIUM 3 ML NEB NEB SCH ×3 (04:43→18:04)
[2018-09-12] MEDS: PIPERACILLIN/TAZO SOD* 2.25 GM 2.25 GM in NS(*) 0.9% 100 ML ADDVANT BAG 100 ML IVPB SCH ×3 (05:37→23:42)
[2018-09-12 06:46] LABS: PLATELET COUNT, AUTOMATED 133 K/uL (150-450)
[2018-09-12 07:10] LABS: INR 1.05
--- NOTE | 2018-09-12 07:47 | Hospitalist Progress Note ---
Subjective Progress Notes Subjective He denies cp/sob. Staff increased O2 to 4 liters overnight. He reports RUQ pain with sitting up. Physical Exam Vital Signs Date Time Temp Pulse Resp B/P (MAP) Pulse Ox O2 Delivery O2 Flow Rate FiO2 09/12/18 04:45 68 16 09/12/18 04:40 95 CPAP 4.0 09/12/18 03:37 97.1 132/65 (87) Intake and Output 09/12/18 06:59 Intake Total 741 ml Output Total 600 ml Balance 141 ml Intake IV Total 741 ml Output Urine Total 600 ml # Voids 1 General Appearance: Alert, Awake, No Acute Distress (mild work of breathing with some upper airway sounds) GI: Other (Soft, non-distended, pain with palpation in the RUQ) Result Diagram: 09/12/1862309/12/18623 EKG Interpretation Vent. Rate : 063 BPM Atrial Rate : 063 BPM P-R Int : 170 ms QRS Dur : 096 ms QT Int : 426 ms P-R-T Axes : 057 -31 084 degrees QTc Int : 435 ms Normal sinus rhythm Left axis deviation Septal infarct , age undetermined R wave progression consistent old ant/sep IN vs lead placement Confirmed by DIALLO MUSE ([id number]) on 09/12/2018 7:38:29 AM Monitor Interpretation: Normal Sinus Rhythm Assessment and Plan Problems: (1) Pre-op evaluation Status: Acute Assessment & Plan: He has a moderate risk of pulmonary complications secondary to COPD, age, long smoking history and CXR suggesting early pulmonary fibrosis. He reports breathing at baseline and lungs were relatively clear. Will start scheduled DuoNeb. He has a moderate risk of cardiac complications secondary age, smoking history, history of elevated BNP, history of SVT. He sounds regular. Awaiting ECG. He has a high risk for post-operative delirium secondary to age and multiple medical problems. 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 Taking all of his chronic diseases into consideration, surgery does pose a significant risk. There is no further testing that needs to be done. There are no medications or interventions that will lower his risk of complications. However, he certainly could benefit from being at a hospital with more specialty care that could deal with potential complications from surgery. (2) CKD (chronic kidney disease) stage 3, GFR 30-59 ml/min Status: Chronic Assessment & Plan: Baseline creatinine is 1.8 to 2.0. Currently at 2.2 despite fluids. Lasix will be held. Follow creatinine. (3) COPD (chronic obstructive pulmonary disease) Status: Chronic Assessment & Plan: Lungs are relatively clear, but he does seem to clear a lot of mucus. See above. (4) Osteomyelitis of left hip Status: Chronic Assessment & Plan: He is chronically on Levofloxacin 750mg every other day. It isn't exactly clear what organism is being covered based on the different culture results that we have in the past. Will continue Levofloxacin for now with the Zosyn. He did have the subdermal nodule (seen on CT) aspirated in the ER, which only showed blood. (5) Abnormal CXR Status: Chronic Assessment & Plan: 1cm square density of the left anterior second rib that was seen in 2018, but not in 2017. Radiology recommends a follow CT at some point. Also, there appears to be a possible developing interstitial pulmonary fibrosis. (6) NICOLETTE treated with BiPAP Status: Chronic Assessment & Plan: Continue chronic CPAP or BIPAP. (7) Anemia of chronic disease Status: Chronic Assessment & Plan: Hgb decreased. He intermittently receives Aranesp and apparently received a dose last week. Will follow. (8) SVT (supraventricular tachycardia) Status: Resolved Exam Sepsis Risk: No Definite Risk DIALLO MUSE MD Sep 12, 2018 07:47
[2018-09-12] MEDS ORDERED: PANTOPRAZOLE SOD 40 MG IV VIAL IVP SCH (09:00)
--- NOTE | 2018-09-12 10:54 | General Surgery Progress Note ---
Subjective Progress Notes Subjective continued ruq pain. has bothersome lump left flank likely residual ortho procedure. would like to have gb removed and would like to have it done here. no blood in stool. last colonoscopy was 10+ yrs ago. Physical Exam Vital Signs Date Time Temp Pulse Resp B/P (MAP) Pulse Ox O2 Delivery O2 Flow Rate FiO2 09/12/18 10:31 74 18 09/12/18 10:24 94 Nasal Cannula 4.0 09/12/18 07:15 98.2 134/57 (82) Intake and Output 09/12/18 07:00 Intake Total 741 ml Output Total 600 ml Balance 141 ml Intake IV Total 741 ml Output Urine Total 600 ml # Voids 1 General Appearance: No Acute Distress Cardiovascular: Other (reg rate) GI: Other (abd soft, ruq ttp) Result Diagram: 09/12/1862309/12/18623 Monitor Interpretation: Normal Sinus Rhythm Assessment and Plan Problems: (1) Cholelithiasis Status: Acute Assessment & Plan: 88 yo male with multiple co-morbidities with symptomatic cholelithiasis possible early cholecystitis. Will admit with bowel rest, IV antibiotics, and close clinical observation. Suspect he will require cholecyste ctomy given stone appears impacted at the neck of his gallbladder. Will ask internal medicine to consult to optimize his cardiopulm status. 09/12/18: lap darcy if cleared by anesthesia. will likely remove left flank mass at same time. npo. (2) Anemia of chronic disease Status: Chronic Assessment & Plan: Long standing anemia due to presumed underlying CA and CKD. Need to consider colonoscopic evaluation to rule out colonic source of anemia. (3) COPD (chronic obstructive pulmonary disease) Status: Chronic (4) History of prostate cancer Status: Chronic (5) CKD (chronic kidney disease) stage 3, GFR 30-59 ml/min Status: Chronic Exam Sepsis Risk: No Definite Risk Problem Qualifiers (1) Cholelithiasis: Cholelithiasis location: gallbladder Cholecystitis presence: with cholecystitis Cholecystitis acuity: acute and chronic Biliary obstruction: without biliary obstruction Qualified Codes: K80.12 - Calculus of gallbladder with acute and chronic cholecystitis without obstruction DORIAN GARZON Sep 12, 2018 10:54
--- NOTE | 2018-09-12 11:50 | NUR ---
Sudden notification from preop that they were coming to get the patient. Preop check off sheet printed, notified SWEETIE Todd that we have no consent forms and she reported that this would be taken care of downstairs. Assisted to wheelchair at 1158, IV fluids disconnected, sent with calf cuffs for SCDs. Report given to SWEETIE Todd. Notified med/surg that patient has been taken to OR and they are prepared to have him come to their unit.
--- NOTE | 2018-09-12 14:04 | Medical Nutrition Therapy ---
Nutrition Anthropometrics Height (Inches): 70.00 Height (Calculated Centimeters: 177.675828 Weight (Pounds): 198 Weight (Calculated Kilograms): 90.066 BMI: 28.5 Keaton Nutrition Score: Adequate Keaton Nutrition Risk Score: 18 Dietary Referral Nutrition Risk Factors: Non-Healing Wound Nutrition Risk Comment: non-healing wound-=infection in hip Physical Findings Physical Appearance: Overweight BMI 25-29 Skin Appearance Skin Appearance: Edema Edema Location Modifier: Both Edema Location: Foot Type of Edema: Degree of Edema: 2+ Gastrointestinal Symptoms GI Symtoms: Tube Present: Bowel Sounds: Recent Bowel Pattern: Stool Characteristics: Nutritional Diagnosis Nutritional Risk Acuity 2: Chronic Renal Failure, Abcess/Non-Healing Wound Nutritional Risk Acuity 3: OR & > 80 yrs, Nutrit Anemia, Cancer, GERD, COPD Unstable Nutritional Risk Acuity 4: Age Related Past Medical History: Septic bursitis, parolysmal pupraventricular tachycardia, anemia, GERD, non-pitted edema of LF foot, prostate cancer, depression, sleep apnea, COPD, CKD stage 3, hyponatremia, skin cancer, prostate cancer, acute urinary retention Nutritional Acuity: 2-Moderate Nutrition Diagnosis: Increased Nutrient Needs Nutrition Etiology: Physiological Causes Nutrition Problem/Etiology/Sym: Increased nutrient needs related to physioloigcal causes as evidenced by dx of acute cholelithiasis. Energy Requirement: 2060 (MSJ 1.1 TEF, 1.2 AF) Protein Requirement: 90 (1g of AA/kg of BW) Fluid Requirement: 2060 (1ml/kcal) Diet Type: NPO (Nothing by Mouth) Nutrition Intervention: Incr diet as tolerated Nutrition Monitoring & Eval RD Patient Assessment Time: [address] Assessment Type: RD Assessment Patient Nutrition Acuity: 2-Moderate Follow Up Date: Sep 14, 2018 Nutritional Comment: 08/15: Dx with acute cholelithiasis, pre-op evaluation, risk of pumonary compliction. Pt has hx of Septic bursitis, parolysmal pupraventricular tachycardia, anemia, GERD, non-pitted edema of LF foot, prostate cancer, depression, sleep apnea, COPD, CKD stage 3, hyponatremia, skin cancer, prostate cancer, acute urinary retention. Pt has decreased sodium (136), elevated BUN (26-28), and elevated creatinine (2.2-2.3). NPO day 1. Continue to monitor. -YANA BELLO Sep 12, 2018 10:34
[2018-09-12] MEDS: HYDROmorphone HCL 2 MG/ML SDV IVP PRN ×2 (17:45→22:22)
[2018-09-12] MEDS ORDERED: TAMSULOSIN HCL 0.4 MG CAP PO ONE (21:06)
[2018-09-12] MEDS: TAMSULOSIN HCL 0.4 MG CAP PO SCH (21:11)
--- NOTE | 2018-09-12 21:46 | Post Operative Progress Note ---
Post Operative Progress Note Date: Sep 12, 2018 Surgeon: dr. marcos peter #[id number] Switchboard Operator Assistant: none Anesthesia: gen, local Pre-Op Diagnosis: acute cholecystitis left flank mass Post-Op Diagnosis: same Findings: left flank mass cholelithiasis Procedure(s): lap darcy excision of left flank mass Specimen Removed:(May be N/A): gb, left flank mass Complications: none Fluids: iv crystalloid Estimated Blood Loss: minimal DORIAN PETER Sep 12, 2018 21:46
[2018-09-12] MEDS: traMADol 50 MG TAB PO PRN (22:22)
[2018-09-12] MEDS ORDERED: HYDROmorphone HCL 2 MG/ML SDV ONE (22:24)
[2018-09-13 04:05] VITALS: BP 120/57
--- NOTE | 2018-09-13 04:53 | OPERATIVE REPORT 1 ---
EVENT DATE: September 12, 2018 SURGEON: Jered Muhammad MD ANESTHESIOLOGIST: Kwabena Vasquez DO ANESTHESIA: General and local. EMBEDDED FIRMWARE ENGINEER: None. PREOPERATIVE DIAGNOSIS Acute cholecystitis and left flank mass. POSTOPERATIVE DIAGNOSIS Acute cholecystitis and left flank mass. PROCEDURE PERFORMED Laparoscopic cholecystectomy and excision of left flank mass. FLUIDS IV crystalloid. ESTIMATED BLOOD LOSS Minimal. SPECIMENS Gallbladder and left flank mass. COMPLICATIONS None. INDICATIONS This is an 88-year-old male with intermittent right upper quadrant pain. It has been constant for the last day and a half. Imaging showed a stone lodged in the neck of the gallbladder. On physical exam, patient was tender to palpation in the right lower quadrant. He also had a mass that was in the area of his left flank/left hip. This was believed to be a result of procedure performed in the area. He would like the mass removed. Risks and benefits of the procedure were explained and consent was signed. DESCRIPTION OF PROCEDURE Patient was taken to the operating room and placed in the supine position. General anesthesia was administered per anesthesia team. Patient was prepped and draped in normal sterile fashion. Local analgesia was injected in the dermis below the right costal margin, and a small incision was made. Optiview technique was used to easily enter the abdomen. Pneumoperitoneum was achieved. After injecting local anesthesia and under direct vision, a 5 mm periumbilical port was placed as well as another 5 mm right-side port, as well as a 12 mm subxiphoid port. I inspected the abdomen. There was no injury upon entry. The gallbladder was grasped and retracted superiorly and laterally. Filmy and fatty adhesions were taken down bluntly and with electrocautery. Infundibulum was grasped and retracted. Electrocautery was used to free the cystic duct and cystic artery of surrounding tissue. Both structures were seen going directly to the gallbladder. Three clips were placed on the cystic artery, and it was divided sharply between the distal two clips. Three clips were placed on the cystic duct, and it was divided sharply between the distal two clips. Gallbladder was taken off the liver bed with electrocautery. It was removed with an Endo Catch bag through the subxiphoid port site. Right upper quadrant was irrigated and suctioned. Irrigant returned clear. Hemostasis was assured. Fascial closure device with an 0 Vicryl stitch was used to close the fascia of the subxiphoid port site. Two right upper quadrant ports were removed under direct vision. Hemostasis was assured. Pneumoperitoneum was relieved. Final port was removed. All skin incisions were closed with 4-0 Monocryl subcuticular stitches. More local analgesia was injected. Appropriate dressings were applied. The left flank mass was then prepped and draped. Local analgesia was injected. An elliptical incision was made over the mass. Blunt dissection was performed around the mass, and the mass was removed. The mass was consistent with fatty necrosis. Appropriate hemostasis was assured. The wound was closed with interrupted vertical mattress 2-0 Prolene stitches. Appropriate dressings were applied. Patient tolerated both procedures well. There were no complications. [facility]ITAL[facility]
[2018-09-13] MEDS: ALBUTEROL/IPRATROPIUM 3 ML NEB NEB SCH ×3 (05:23→16:52)
[2018-09-13] MEDS: PIPERACILLIN/TAZO SOD* 2.25 GM 2.25 GM in NS(*) 0.9% 100 ML ADDVANT BAG 100 ML IVPB SCH ×4 (05:32→23:36)
[2018-09-13] MEDS: traMADol 50 MG TAB PO PRN ×2 (05:42→17:50)
--- NOTE | 2018-09-13 07:24 | General Surgery Progress Note ---
Subjective Progress Notes Subjective s/p lap darcy. doing well. no acute events. Physical Exam Vital Signs Date Time Temp Pulse Resp B/P (MAP) Pulse Ox O2 Delivery O2 Flow Rate FiO2 09/13/18 04:05 98.5 66 20 120/57 (78) 93 Bi-PAP 2.5 Intake and Output 09/13/18 07:00 Intake Total 905 ml Output Total 1050 ml Balance -145 ml Intake Oral 600 ml IV Total 305 ml Output Urine Total 1050 ml # Voids 100 General Appearance: No Acute Distress Cardiovascular: Other (reg rate) GI: Other (abd soft) Result Diagram: 09/12/1862309/12/18623 Monitor Interpretation: Normal Sinus Rhythm Assessment and Plan Problems: (1) Cholelithiasis Status: Acute Assessment & Plan: 88 yo male with multiple co-morbidities with symptomatic cholelithiasis possible early cholecystitis. Will admit with bowel rest, IV antibiotics, and close clinical observation. Suspect he will require cholecystectomy given stone appears impacted at the neck of his gallbladder. Will ask internal medicine to consult to optimize his cardiopulm status. 09/12/18: lap darcy if cleared by anesthesia. will likely remove left flank mass at same time. npo. 09/13/18: no acute events. reg diet. ambulate. monitor hb. hold lovenox for now. (2) Anemia of chronic disease Status: Chronic Assessment & Plan: Long standing anemia due to presumed underlying CA and CKD. Need to consider colonoscopic evaluation to rule out colonic source of anemia. (3) COPD (chronic obstructive pulmonary disease) Status: Chronic (4) History of prostate cancer Status: Chronic (5) CKD (chronic kidney disease) stage 3, GFR 30-59 ml/min Status: Chronic Exam Sepsis Risk: No Definite Risk Problem Qualifiers (1) Cholelithiasis: Cholelithiasis location: gallbladder Cholecystitis presence: with cholecystitis Cholecystitis acuity: acute and chronic Biliary obstruction: without biliary obstruction Qualified Codes: K80.12 - Calculus of gallbladder with acute and chronic cholecystitis without obstruction DORIAN GARZON Sep 13, 2018 07:24
[2018-09-13 07:27] VITALS: BP 112/50
[2018-09-13] MEDS ORDERED: D5 1/2 NS(*) 1000 ML BAG 1,000 ML IV PRN (08:05)
[2018-09-13] MEDS ORDERED: NALOXONE HCL 0.4 MG/ML VIAL IVP PRN (08:05)
[2018-09-13] MEDS ORDERED: HYDROmorphone HCL 2 MG/ML SDV IVP PRN (08:05)
[2018-09-13] MEDS ORDERED: SALINE 0.65% NAS SPR 44 ML BTL PRN (08:10)
[2018-09-13 08:57] LABS: PLATELET COUNT, AUTOMATED 165 K/uL (150-450)
[2018-09-13] MEDS ORDERED: LEVOFLOXACIN 750 MG TAB PO SCH (09:00)
[2018-09-13] MEDS: LEVOFLOXACIN 750 MG TAB PO SCH (09:34)
[2018-09-13] MEDS: PANTOPRAZOLE SOD 40 MG IV VIAL IVP SCH (09:34)
--- NOTE | 2018-09-13 11:05 | Hospitalist Progress Note ---
Subjective Progress Notes Subjective He reports some RUQ pain with deep breathing/cough/sitting up. Physical Exam Vital Signs Date Time Temp Pulse Resp B/P (MAP) Pulse Ox O2 Delivery O2 Flow Rate FiO2 09/13/18 09:43 28 09/13/18 07:27 96 CPAP 7.0 09/13/18 07:27 98.1 70 112/50 (70) Intake and Output 09/13/18 07:00 Intake Total 905 ml Output Total 1050 ml Balance -145 ml Intake Oral 600 ml IV Total 305 ml Output Urine Total 1050 ml # Voids 100 General Appearance: Alert, Awake Cardiovascular: Regular Rate and Rhythm Respiratory: Other (some prolonged expiratory phase) Chest: No Tenderness GI: Other (laparoscopic sites look good) Extremities: Warm, Perfused, Edema Integumentary: Other (left lateral hip wound with bloody drainage) Result Diagram: 09/13/18 0850 09/13/18 0850 Monitor Interpretation: Normal Sinus Rhythm Assessment and Plan Problems: (1) CKD (chronic kidney disease) stage 3, GFR 30-59 ml/min Status: Chronic Assessment & Plan: Baseline creatinine is 1.8 to 2.0. Currently at 1.9 with IV fluids. Lasix will continue to be held. Follow creatinine. (2) COPD (chronic obstructive pulmonary disease) Status: Chronic Assessment & Plan: Lungs are relatively clear, but he does clear a lot of mu cus. Continue working on respiratory toilet. (3) Osteomyelitis of left hip Status: Chronic Assessment & Plan: He is chronically on Levofloxacin 750mg every other day. Will continue Levofloxacin for now with the Zosyn. He did have the subdermal nodule (seen on CT) aspirated in the ER, which only showed blood. (4) Abnormal CXR Status: Chronic Assessment & Plan: 1cm square density of the left anterior second rib that was seen in 2018, but not in 2017. Radiology recommends a follow CT at some point. Also, there appears to be a possible developing interstitial pulmonary fibrosis. (5) NICOLETTE treated with BiPAP Status: Chronic Assessment & Plan: Continue chronic CPAP or BIPAP. (6) Anemia of chronic disease Status: Chronic Assessment & Plan: Hgb/Hct are improved today. He intermittently receives Aranesp and apparently received a dose last week. Will follow. (7) SVT (supraventricular tachycardia) Status: Resolved Exam Sepsis Risk: No Definite Risk PHOEBE LOJA MD Sep 13, 2018 11:05
[2018-09-13] MEDS: ALBUTEROL 2.5 MG/3 ML NEB NEB PRN ×2 (11:27→20:13)
[2018-09-13 11:54] VITALS: BP 137/74
--- NOTE | 2018-09-13 13:43 | NUR ---
Physical Therapy Impression PT eval completed. Pt requesting loudly to transfer from chair back to bed after being up for lunch. Pt tolerated [id number] transfer with FWW and CGA but refuses further ambulation. Pt requires Min/Mod assist for LE's into bed with sit to supine. Physical Therapy Goals 1. Pt to be Min assist for bed mobility and supine to/from sit transfers 2. Pt to be CGA for sit to/from stand transfers 3. Pt to be SBA/Modified indep with least restrictive device to ambulate 50' with vital signs in safe range. Patient's Goals
--- NOTE | 2018-09-13 14:55 | Antimicrobial Stewardship ---
Antimicrobial Time Out Antimicrobial Stewardship MD Service: Other (Dr. Salgado and Dr. Alberts) Indications: Other (Post-op prophylaxis and treatment of osteomyelitis) Antimicrobial Used Zosyn for post-op prophylaxis and Levaquin for suppressive treatment of osteomyelitis of left hip hardware. Zosyn started 09/12/18 and Levaquin po since 05/02/16. Culture Results: Yes (wound culture showed no growth after 2 days) KELLIE DUNN Sep 13, 2018 14:55
[2018-09-13 16:19] VITALS: BP 140/68
[2018-09-13] MEDS: ACETAMINOPHEN 325 MG TAB PO PRN (16:32)
[2018-09-13] MEDS ORDERED: ALBUTEROL/IPRATROPIUM 3 ML NEB ONE (16:32)
--- NOTE | 2018-09-13 17:14 | RADIOLOGY IMAGING REPORT ---
FACILITY: [facility] PATIENT NAME: Alok Edwards : 1930 MR: [id number] V: [id number] EXAM DATE: ORDERING PHYSICIAN: PHOEBE LOJA TECHNOLOGIST: Location: [facility] [place] Patient: Alok Edwards : 1930 Visit/Account:[id number] Date of Sevice: 09/13/2018 CHEST SINGLE AP Additional pertinent History: Fever COMPARISON STUDIES: 09/11/2018 FINDINGS: Support lines and catheters: None Lungs and Pleura: There is slight increased elevation the right hemidiaphragm. There is an area of atelectasis adjacent to the elevated right hemidiaphragm. There is a vague potential roundish opacit y in the right upper lung field measuring approximately 3 cm projecting over the anterior first rib. Slight increased bronchovascular interstitial lung markings noted in left lung. Heart and vasculature: Ectasia of the ascending and thoracic aorta. Karlie and Mediastinum: Negative. Bones and Chest wall: Negative. Upper Abdomen: Negative. IMPRESSION: 1. Increasing atelectasis and volume loss associated with an elevated right hemidiaphragm. Cannot e xclude developing pneumonic infiltrate. 2. Vague roundish opacity superimposed over the right anterior rib that could be artifactual but a developing round pneumonia not excluded. Recommend clinical correlation appropriate follow-up Report Dictated By: Riaz Vick MD at 09/13/2018 5:01 PM Report E-Signed By: Riaz Vick MD at 09/13/2018 5:10 PM WSN:OMERO
--- NOTE | 2018-09-13 18:30 | NUR ---
Physical Therapy Impression Nursg recvd orders to d/c stitches at R) frontal scalp repair. Pt was scheduled to see Dr. Wood, diamond sizer and sorter, to have them removed today after repair of a scalp laceration. Pt/Nrsg requested this PT to remove them. Non-billable service provided. Center portion of wound is still scabbed with some drainage and soft edges. Sutures removed at top and bottom, but possibility that some stitches may be imbedded in the scabbed area. PT to reinspect this site on Mon09/17/18. Physical Therapy Goals 1. Pt to be Min assist for bed mobility and supine to/from sit transfers 2. Pt to be CGA for sit to/from stand transfers 3. Pt to be SBA/Modified indep with least restrictive device to ambulate 50' with vital signs in safe range. Patient's Goals
[2018-09-13 19:52] VITALS: BP 114/49
[2018-09-13] MEDS: DOCUSATE SODIUM 100 MG CAP PO SCH (20:55)
[2018-09-13] MEDS: TAMSULOSIN HCL 0.4 MG CAP PO SCH (20:55)
[2018-09-13 23:39] VITALS: BP 92/54
[2018-09-14] VITALS (8 sets, daily range): BP systolic 97–137; BP diastolic 46–68
[2018-09-14] MEDS: PIPERACILLIN/TAZO SOD* 2.25 GM 2.25 GM in NS(*) 0.9% 100 ML ADDVANT BAG 100 ML IVPB SCH ×3 (05:27→17:25)
[2018-09-14] MEDS ORDERED: ALBUTEROL/IPRATROPIUM 3 ML NEB ONE (05:28)
[2018-09-14] MEDS: traMADol 50 MG TAB PO PRN ×2 (05:29→18:51)
[2018-09-14] MEDS: ALBUTEROL/IPRATROPIUM 3 ML NEB NEB SCH ×3 (05:35→18:00)
[2018-09-14 05:54] LABS: PLATELET COUNT, AUTOMATED 158 K/uL (150-450)
[2018-09-14] MEDS: DOCUSATE SODIUM 100 MG CAP PO SCH ×2 (08:36→20:07)
[2018-09-14] MEDS: PANTOPRAZOLE SOD 40 MG IV VIAL IVP SCH (08:37)
[2018-09-14] MEDS: ACETAMINOPHEN 325 MG TAB PO PRN (08:37)
--- NOTE | 2018-09-14 10:06 | Hospitalist Progress Note ---
Subjective Progress Notes Subjective He has complaints of RUQ tenderness when he changes position. He has not been ambulating well. He has no complaints otherwise. Patient Complains of: Cardiovascular: No: Chest Pain Respiratory: No: Shortness of Breath Physical Exam Vital Signs Date Time Temp Pulse Resp B/P (MAP) Pulse Ox O2 Delivery O2 Flow Rate FiO2 09/14/18 07:19 98.4 85 14 122/59 (80) 92 CPAP 09/14/18 05:30 4.0 Intake and Output 09/14/18 07:00 Intake Total 1105 ml Output Total 350 ml Balance 755 ml Intake Oral 240 ml IV Total 865 ml Output Urine Total 350 ml # Voids 5 General Appearance: Alert, Awake, No Acute Distress, Afebrile Neuro: No Gross deficits Cardiovascular: Regular Rate and Rhythm Respiratory: No Respiratory Distress, Other (diminished lung bases) GI: Other (lap darcy sites no sign of infection, healing well) Extremities: Warm, Perfused; No Edema Psych: Alert & Oriented X3, Appropriate Mood & Affect Result Diagram: 09/14/1851709/14/18517 Monitor Interpretation: Normal Sinus Rhythm Assessment and Plan Problems: (1) CKD (chronic kidney disease) stage 3, GFR 30-59 ml/min Status: Chronic Assessment & Plan: Baseline creatinine is 1.8 to 2.0. Currently at 2.0 with IV fluids. Lasix will continue to be held. Follow creatinine. (2) COPD (chronic obstructive pulmonary disease) Status: Chronic Assessment & Plan: Lungs are relatively clear, but he does clear a lot of mucus. Continue working on respiratory toilet. (3) Osteomyelitis of left hip Status: Chronic Assessment & Plan: He is chronically on Levofloxacin 750mg every other day. Will continue Levofloxacin for now with the Zosyn. He did have the subdermal nodule (seen on CT) aspirated in the ER, which only showed blood. (4) Abnormal CXR Status: Chronic Assessment & Plan: 1cm square density of the left anterior second rib that was seen in 2018, but not in 2017. Radiology recommends a follow CT at some point. Also, there appears to be a possible developing interstitial pulmonary fibrosis. (5) NICOLETTE treated with BiPAP Status: Chronic Assessment & Plan: Continue chronic CPAP or BIPAP. Will ask RT to see, his nose mask doesn't appear to fit well causing increased oxygen requirement at night. He likely needs full face mask. (6) Anemia of chronic disease Status: Chronic Assessment & Plan: Hgb/Hct are slightly decreased today. He intermittently receives Aranesp and apparently received a dose last week, he is due for next dose 09/20. Will follow. (7) SVT (supraventricular tachycardia) Status: Resolved Exam Sepsis Risk: No Definite Risk SHAYY BENOITP Sep 14, 2018 10:06
[2018-09-14] MEDS ORDERED: NS(*) 0.9% 250 ML BAG 250 ML ONE (10:14)
--- NOTE | 2018-09-14 13:16 | RADIOLOGY IMAGING REPORT ---
[place] [facility] [place]: Alok Edwards : 1930 MR: [id number] V: [id number] EXAM DATE: ORDERING PHYSICIAN: DORIAN GARZON TECHNOLOGIST: [place] [facility] [place]: Alok Edwards : 1930 Visit/Account:[id number] Date of Sevice: 09/14/2018 CHEST SINGLE AP 12:35 PM COMPARISON: 09/13/2018 HISTORY: cough, elevated wbc FINDINGS: CARDIAC/VASC: Heart size is probably mildly enlarged even for technique. Ectatic aorta with mild vascular calcifications. MEDIASTINUM: Stable mediastinal widening felt related to aortic ectasia. LUNGS/PLEURA: Moderately underinflated lungs with mild bibasilar atelectasis very similar to yesterd ay. No new findings. A pneumothorax or costophrenic angle blunting. A round density was questioned in the right apex on yesterday's study, probably representing the right first rib seen en face rathe r than a nodule. Diffuse bilateral interstitial prominence, due to bronchial wall thickening. BONES: No fracture or visible bony lesion. OTHER:Negative. IMPRESSION: No significant change from yesterday. Cardiomegaly, underinflated lungs, bronchial wall thickening a nd bibasilar atelectasis. Report Dictated By: Gonzalez Schulte at 09/14/2018 1:09 PM Report E-Signed By: Gonzalez Schulte at 09/14/2018 1:11 PM WSN:[email or web address]
[2018-09-14] MEDS: FUROSEMIDE 40 MG TAB PO SCH (13:42)
--- NOTE | 2018-09-14 15:09 | Medical Nutrition Therapy ---
Nutrition Anthropometrics Height (Inches): 70.00 Height (Calculated Centimeters: 177.288142 Weight (Pounds): 198 Weight (Calculated Kilograms): 90.066 BMI: 28.5 Keaton Nutrition Score: Adequate Keaton Nutrition Risk Score: 18 Dietary Referral Nutrition Risk Factors: Non-Healing Wound Nutrition Risk Comment: non-healing wound-=infection in hip Physical Findings Physical Appearance: Overweight BMI 25-29 Skin Appearance Skin Appearance: Edema Edema Location Modifier: Left Edema Location: Lower Extremity Type of Edema: Degree of Edema: 1+ Gastrointestinal Symptoms GI Symtoms: Appetite Changes, Change in Bowel Pattern Tube Present: Bowel Sounds: Recent Bowel Pattern: Stool Characteristics: Nutritional Diagnosis Nutritional Risk Acuity 2: Chronic Renal Failure, Abcess/Non-Healing Wound Nutritional Risk Acuity 3: OR & > 80 yrs, Nutrit Anemia, Cancer, GERD, COPD Unstable Nutritional Risk Acuity 4: Age Related Past Medical History: Septic bursitis, parolysmal pupraventricular tachycardia, anemia, GERD, non-pitted edema of LF foot, prostate cancer, depression, sleep apnea, COPD, CKD stage 3, hyponatremia, skin cancer, prostate cancer, acute urinary retention Nutritional Acuity: 2-Moderate Nutrition Diagnosis: Increased Nutrient Needs Nutrition Etiology: Physiological Causes Nutrition Problem/Etiology/Sym: Increased nutrient needs related to physioloigcal causes as evidenced by dx of acute cholelithiasis. Energy Requirement: 2060 (MSJ 1.1 TEF, 1.2 AF) Protein Requirement: 90 (1g of AA/kg of BW) Fluid Requirement: 2060 (1ml/kcal) Diet Type: Diet as Tolerated VINNIE/REG Nutrition Intervention: Incr diet as tolerated Nutrition Monitoring & Eval Nutrition Goals: Eat 50-100% Meal Nutrition Follow-Up: Good Intake RD Patient Assessment Time: [address] Assessment Type: RD Assessment Patient Nutrition Acuity: 2-Moderate Follow Up Date: Sep 17, 2018 Nutritional Comment: 08/15: Dx with acute cholelithiasis, pre-op evaluation, risk of pumonary compliction. Pt has hx of Septic bursitis, parolysmal pupraventricular tachycardia, anemia, GERD, non-pitted edema of LF foot, prostate cancer, depression, sleep apnea, COPD, CKD stage 3, hyponatremia, skin cancer, prostate cancer, acute urinary retention. Pt has decreased sodium (136), elevated BUN (26-28), and elevated creatinine (2.2-2.3). NPO day 1. Continue to monitor. -CATHIE 09/14: Pt s/p damian wright., doing well. Pt has elevated BUN (25), creatinine (2.00), and decreased sodium (133). Pt on a VINNIE diet consuming 75% of meals on average. Continue to monitor. -YANA BELLO Sep 14, 2018 09:56
--- NOTE | 2018-09-14 15:50 | NUR ---
Physical Therapy Impression PT attempted visit earlier today, after lunch but pt had just gotten back to bed. Pt was agreeable to PT returning after 3pm for treatment. Pt now requires some encouragement to participate but agreeable to use of 4WW in hallway. Pt tolerated 40' followed by seated W/C rest break and then return to room of 40' again. Pt required Min assist for bed mobility and supine to/from sit with log roll trng. Pt is CGA/Min assist for sit to/from stand transfers and notes that ambulation "felt better than I thought it would". Physical Therapy Goals 1. Pt to be Min assist for bed mobility and supine to/from sit transfers 2. Pt to be CGA for sit to/from stand transfers 3. Pt to be SBA/Modified indep with least restrictive device to ambulate 50' with vital signs in safe range. Patient's Goals
[2018-09-14] MEDS: TAMSULOSIN HCL 0.4 MG CAP PO SCH (20:07)
--- NOTE | 2018-09-14 21:40 | General Surgery Progress Note ---
Subjective Progress Notes Subjective delayed note (i saw pt earlier today) ambulating. pain at subxiphoid inc. Physical Exam Vital Signs Date Time Temp Pulse Resp B/P (MAP) Pulse Ox O2 Delivery O2 Flow Rate FiO2 09/14/18 19:34 98.6 101 16 111/52 (71) 92 Nasal Cannula 2.5 Intake and Output 09/14/18 07:00 Intake Total 1105 ml Output Total 350 ml Balance 755 ml Intake Oral 240 ml IV Total 865 ml Output Urine Total 350 ml # Voids 5 General Appearance: Alert, Awake, No Acute Distress GI: Other (abd soft) Result Diagram: 09/14/1851709/14/18517 Monitor Interpretation: Normal Sinus Rhythm Assessment and Plan Problems: (1) Cholelithiasis Status: Acute Assessment & Plan: 88 yo male with multiple co-morbidities with symptomatic cholelithiasis possible early cholecystitis. Will admit with bowel rest, IV antibiotics, and close clinical observation. Suspect he will require cholecystectomy given stone appears impacted at the neck of his gallbladder. Will ask internal medicine to consult to optimize his cardiopulm status. 09/12/18: lap darcy if cleared by anesthesia. will likely remove left flank mass at same time. npo. 09/13/18: no acute events. reg diet. ambulate. monitor hb. hold lovenox for now. 09/14/18: clinically doing ok. wheezing. restart lasix. ambulate. cont abx. cxr, ua, bl cx for elevated wbc. (2) Anemia of chronic disease Status: Chronic Assessment & Plan: Long standing anemia due to presumed underlying CA and CKD. Need to consider colonoscopic evaluation to rule out colonic source of anemia. (3) COPD (chronic obstructive pulmonary disease) Status: Chronic (4) History of prostate cancer Status: Chronic (5) CKD (chronic kidney disease) stage 3, GFR 30-59 ml/min Status: Chronic Exam Sepsis Risk: No Definite Risk Problem Qualifiers (1) Cholelithiasis: Cholelithiasis location: gallbladder Cholecystitis presence: with cholecystitis Cholecystitis acuity: acute and chronic Biliary obstruction: without biliary obstruction Qualified Codes: K80.12 - Calculus of gallbladder with acute and chronic cholecystitis without obstruction DORIAN GARZON Sep 14, 2018 21:40
[2018-09-15] MEDS: PIPERACILLIN/TAZO SOD* 2.25 GM 2.25 GM in NS(*) 0.9% 100 ML ADDVANT BAG 100 ML IVPB SCH ×4 (00:11→18:43)
[2018-09-15 03:46] VITALS: BP 114/59
[2018-09-15] MEDS: ALBUTEROL/IPRATROPIUM 3 ML NEB NEB SCH ×3 (06:00→17:16)
[2018-09-15 06:25] LABS: PLATELET COUNT, AUTOMATED 148 K/uL (150-450)
[2018-09-15 07:33] VITALS: BP 138/65
[2018-09-15] MEDS: DOCUSATE SODIUM 100 MG CAP PO SCH ×2 (08:40→20:28)
[2018-09-15] MEDS: LEVOFLOXACIN 750 MG TAB PO SCH (08:40)
[2018-09-15] MEDS: FUROSEMIDE 40 MG TAB PO SCH (08:40)
[2018-09-15] MEDS: PANTOPRAZOLE SOD 40 MG IV VIAL IVP SCH (08:41)
[2018-09-15] MEDS: traMADol 50 MG TAB PO PRN ×3 (08:48→21:11)
--- NOTE | 2018-09-15 11:31 | General Surgery Progress Note ---
Subjective Progress Notes Subjective had subxiphoid and ruq pain last night. did not sleep well. clear drainage from somewhere overnight. Physical Exam Vital Signs Date Time Temp Pulse Resp B/P (MAP) Pulse Ox O2 Delivery O2 Flow Rate FiO2 09/15/18 07:33 98.1 90 24 138/65 (89) 97 Nasal Cannula 2.5 Intake and Output 09/15/18 07:00 Intake Total 781 ml Output Total 1175 ml Balance -394 ml Intake Oral 120 ml IV Total 411 ml Blood Product 250 ml Output Urine Total 1175 ml # Voids 2 General Appearance: Alert, Awake Cardiovascular: Other (reg rate) GI: Other (soft, ttp sunil at subxiphoid inc, mod distention) Result Diagram: 09/15/18 0544 09/15/18 0544 Monitor Interpretation: Normal Sinus Rhythm Assessment and Plan Problems: (1) Cholelithiasis Status: Acute Assessment & Plan: 88 yo male with multiple co-morbidities with symptomatic cholelithiasis possible early cholecystitis. Will admit with bowel rest, IV antibiotics, and close clinical observation. Suspect he will require cholecystectomy given stone appears impacted at the neck of his gallbladder. Will ask internal medicine to consult to optimize his cardiopulm status. 09/12/18: lap dacry if cleared by anesthesia. will likely remove left flank mass at same time. npo. 09/13/18: no acute events. reg diet. ambulate. monitor hb. hold lovenox for now. 09/14/18: clinically doing ok. wheezing. restart lasix. ambulate. cont abx. cxr, ua, bl cx for elevated wbc. 09/15/18: wbc improved but elevated. abd painful. will get ct c/a/p. cont abx. (2) Anemia of chronic disease Status: Chronic Assessment & Plan: Long standing anemia due to presumed underlying CA and CKD. Need to consider colonoscopic evaluation to rule out colonic source of anemia. (3) COPD (chronic obstructive pulmonary disease) Status: Chronic (4) History of prostate cancer Status: Chronic (5) CKD (chronic kidney disease) stage 3, GFR 30-59 ml/min Status: Chronic Exam Sepsis Risk: No Definite Risk Problem Qualifiers (1) Cholelithiasis: Cholelithiasis location: gallbladder Cholecystitis presence: with cholecystitis Cholecystitis acuity: acute and chronic Biliary obstruction: without biliary obstruction Qualified Codes: K80.12 - Calculus of gallbladder with acute and chronic cholecystitis without obstruction DORIAN GARZON Sep 15, 2018 11:31
[2018-09-15 12:01] VITALS: BP 128/62
--- NOTE | 2018-09-15 12:48 | Hospitalist Progress Note ---
Subjective Progress Notes Subjective 88M admitted for cholecystitis. MARII overnight, some leaking possibly from hip surgical site this am. Patient Complains of: Gastrointestinal: No Nausea, No Vomiting Physical Exam Vital Signs Date Time Temp Pulse Resp B/P (MAP) Pulse Ox O2 Delivery O2 Flow Rate FiO2 09/15/18 12:01 98.5 94 20 128/62 (84) 92 Nasal Cannula 2.5 Intake and Output 09/15/18 07:00 Intake Total 781 ml Output Total 1175 ml Balance -394 ml Intake Oral 120 ml IV Total 411 ml Blood Product 250 ml Output Urine Total 1175 ml # Voids 2 General Appearance: No Acute Distress, Afebrile Neuro: No Gross deficits Cardiovascular: Normal Rhythm & Peripheral Pulses Respiratory: No Respiratory Distress Result Diagram: 09/15/1844 09/15/18543 Monitor Interpretation: Normal Sinus Rhythm Assessment and Plan Problems: (1) CKD (chronic kidney disease) stage 3, GFR 30-59 ml/min Status: Chronic Assessment & Plan: Baseline creatinine is 1.8 to 2.0. Currently at 2.0 with IV fluids. Lasix will continue to be held. Follow creatinine. (2) COPD (chronic obstructive pulmonary disease) Status: Chronic Assessment & Plan: Lungs are relatively clear, but he does clear a lot of mucus. Continue working on respiratory toilet. (3) Osteomyelitis of left hip Status: Chronic Assessment & Plan: He is chronically on Levofloxacin 750mg every other day. Holding Levofloxacin for now with the Zosyn. He did have the subdermal nodule (seen on CT) aspirated in the ER, which only showed blood. (4) Abnormal CXR Status: Chronic Assessment & Plan: 1cm square density of the left anterior second rib that was seen in 2018, but not in 2017. Radiology recommends a follow CT at some point. Also, there appears to be a possible developing interstitial pulmonary fibrosis. (5) NICOLETTE treated with BiPAP Status: Chronic Assessment & Plan: Continue chronic CPAP or BIPAP. Will ask RT to see, his nose mask doesn't appear to fit well causing increased oxygen requirement at night. He likely needs full face mask. (6) Anemia of chronic disease Status: Chronic Assessment & Plan: Hgb/Hct are slightly decreased today. He intermittently receives Aranesp and apparently received a dose last week, he is due for next d ose 09/20. Will follow. (7) SVT (supraventricular tachycardia) Status: Resolved (8) Cholelithiasis Status: Acute Assessment & Plan: Post cholecystectomy. Exam Sepsis Risk: No Definite Risk Problem Qualifiers (1) Cholelithiasis: Cholelithiasis location: gallbladder Cholecystitis presence: with cholecystitis Cholecystitis acuity: acute and chronic Biliary obstruction: without biliary obstruction Qualified Codes: K80.12 - Calculus of gallbladder with acute and chronic cholecystitis without obstruction LISA WING DO Sep 15, 2018 12:48
[2018-09-15 15:06] VITALS: BP 144/87
--- NOTE | 2018-09-15 15:56 | NUR ---
Physical Therapy Impression Pt. req 4 L O2 to maintain O2sat >88% while ambulatory. Pt. limited by pain. Seated break in w/c jail through. Upon sitting up, pt able to cough up sputum. He demonstrates a wet cough throughout the session. Pt. encouraged to remain sitting up but he declines. He is encouraged to sit up for dinner. Req pending progress, HH at [facility] may be appropriate. Physical Therapy Goals 1. Pt to be Min assist for bed mobility and supine to/from sit transfers 2. Pt to be CGA for sit to/from stand transfers 3. Pt to be SBA/Modified indep with least restrictive device to ambulate 50' with vital signs in safe range. Patient's Goals
[2018-09-15] MEDS ORDERED: ALPR-1 PO (16:33)
[2018-09-15] MEDS ORDERED: FURO-47 PO (16:33)
[2018-09-15] MEDS ORDERED: traZODone HCL 50 MG TAB PO PRN (18:25)
[2018-09-15 19:16] VITALS: BP 97/51
[2018-09-15] MEDS: TAMSULOSIN HCL 0.4 MG CAP PO SCH (20:28)
[2018-09-15] MEDS: MELATONIN 3 MG TAB PO PRN (20:28)
[2018-09-15] MEDS: HEPARIN (PORC) 5000 UN/ML VIAL SC SCH (20:32)
--- NOTE | 2018-09-15 21:42 | RADIOLOGY IMAGING REPORT ---
FACILITY: [facility] PATIENT NAME: Alok Edwards : 1930 MR: [id number] V: [id number] EXAM DATE: ORDERING PHYSICIAN: DORIAN GARZON TECHNOLOGIST: Location: [facility] - [place] Patient: Alok Edwards : 1930 Visit/Account:[id number] Date of Sevice: 09/15/2018 INDICATION: Possible thigh infection. DATE: 09/15/2018 9:08 PM. TECHNIQUE: CT FEMUR W/O RT, CT FEMUR W/O LT. Noncontrast axial CT imaging was performed through the bilateral femurs. One of the following dose optimization techniques was utilized in the performance of this exam: Automated exposure control; adjustment of the mA and/or kV according to the patient's s ize; or use of an iterative reconstruction technique. Specific details can be referenced in the [facility]'s radiology CT exam operational policy. COMPARISON: Femur radiographs of the same day. FINDINGS: Left femur: There is a spacer prosthesis in place at the left hip. Posterior to the left proximal fe mur at the level of the greater trochanter is a large debris-containing fluid collection. This measu res roughly 10 cm in maximal dimension. Right femur: On the right, there is no discrete fluid collection. There is likely mild edema in the region of the greater trochanteric bursa. No fracture or dislocation. There are bilateral knee joint effusions. IMPRESSION: 1. Large debris containing collection posterior to the left proximal femur. This could be a postope rative hematoma, but they could also be infected. Recommend direct aspiration if there is concern fo r infection. 2. No discrete fluid collection on the right. 3. Bilateral knee joint effusions. Report Dictated By: Anup Diaz MD at 09/15/2018 9:08 PM Report E-Signed By: Anup Diaz MD at 09/15/2018 9:37 PM WSN:[id number]
--- NOTE | 2018-09-15 21:42 | RADIOLOGY IMAGING REPORT ---
FACILITY: [facility] PATIENT NAME: lAok Edwards : 1930 MR: [id number] V: [id number] EXAM DATE: ORDERING PHYSICIAN: DORIAN GARZON TECHNOLOGIST: Location: [facility] Patient: Alok Edwards : 1930 Visit/Account:[id number] Date of Sevice: 09/15/2018 INDICATION: Possible thigh infection. DATE: 09/15/2018 9:08 PM. TECHNIQUE: CT FEMUR W/O RT, CT FEMUR W/O LT. Noncontrast axial CT imaging was performed through the bilateral femurs. One of the following dose optimization techniques was utilized in the performance of this exam: Automated exposure control; adjustment of the mA and/or kV according to the patient's s ize; or use of an iterative reconstruction technique. Specific details can be referenced in the [facility]'s radiology CT exam operational policy. COMPARISON: Femur radiographs of the same day. FINDINGS: Left femur: There is a spacer prosthesis in place at the left hip. Posterior to the left proximal fe mur at the level of the greater trochanter is a large debris-containing fluid collection. This measu res roughly 10 cm in maximal dimension. Right femur: On the right, there is no discrete fluid collection. There is likely mild edema in the region of the greater trochanteric bursa. No fracture or dislocation. There are bilateral knee joint effusions. IMPRESSION: 1. Large debris containing collection posterior to the left proximal femur. This could be a postope rative hematoma, but they could also be infected. Recommend direct aspiration if there is concern fo r infection. 2. No discrete fluid collection on the right. 3. Bilateral knee joint effusions. Report Dictated By: Anup Diaz MD at 09/15/2018 9:08 PM Report E-Signed By: Anup Diaz MD at 09/15/2018 9:37 PM WSN:[email or web address]
--- NOTE | 2018-09-15 21:43 | RADIOLOGY IMAGING REPORT ---
FACILITY: [facility] PATIENT NAME: Alok Edwards : 1930 MR: [id number] V: [id number] EXAM DATE: ORDERING PHYSICIAN: DORIAN GARZON TECHNOLOGIST: Location: [facility] Patient: Alok Edwards : 1930 Visit/Account:[id number] Date of Sevice: 09/15/2018 CT chest abdomen and pelvis without contrast INDICATION: Pneumonia. Abdominal pain. COMPARISON: CT abdomen pelvis 01/03/2018. CT chest 10/06/2015. Technique: Axial CT images are obtained through the chest abdomen and pelvis without administration o f IV contrast. Reformatted coronal and sagittal images were reviewed. One of the following dose optimization techniques was utilized in the performance of this exam: Autom ated exposure control; adjustment of the mA and/or kV according to the patient's size; or use of an i terative reconstruction technique. Specific details can be referenced in the facility's radiology C T exam operational policy. FINDINGS: CT Chest: The heart is normal size. At least small pericardial effusion. Coronary artery calcifications. Aorta shows atherosclerotic calcific changes without indication of discrete aneurysm. The pulmonary arterie s are grossly normal. There is no mediastinal hematoma and there is no pathologic mediastinal adenopathy seen. Lungs show mild emphysematous changes. Consolidation seen in the posterior right lower lobe. Small ri ght pleural effusion. Mild left basilar atelectasis. Mild linear calcified plaques seen bilaterally. No pleural masses. No other areas of consolidation. No pneumothorax. No discrete nodule. The airways are clear. There is mild compression the T12 vertebral body approximately 30 percent without retropulsion. Mild compression of the T9 vertebral body without retropulsion. This is approximately 20 percent. These to o vertebral bodies also show faint lytic lucencies. T9 vertebral body is stable in the T12 is new com pared the lateral chest x-ray in 09/11/2018. The T5, T6 and T7 vertebral bodies do show compression mo re so at the T5 which is approximately 50 percent. No new these have retropulsion. These appear stabl e compared the lateral chest x-ray. These also have faint lytic areas. No other discrete compression fractures. The sternum does show areas of lytic lucencies without discrete fracture. The ribs show no acute fractures. Several right ovary fractures. No discrete lucencies are seen in the ribs. There is some lucency unremarkable in to the posterior left scapula. Chest wall shows no enlarged axillary ly mph nodes or masses. CT Abdomen and Pelvis: Evaluation of the solid organs of the abdomen is limited without IV contrast. Liver shows no focal normality. Surgical clips are seen in the area of the gallbladder fossa. However there are some fluid in the gallbladder fossa region measuring approximately 3.6 x 3.0 cm. The bilia ry system is unremarkable. Pancreas shows no focal normality. The spleen and adrenal glands are withi n normal limits. The kidneys show no indication of stones or hydronephrosis. The right kidney shows a 3.3 cm cyst. No discrete left renal lesion. Multiple diverticula seen along the sigmoid and descending colon without pericolonic inflammation. Th e colon shows no other focal abnormality. There is stool seen throughout colon more prominent in the cecum. The appendix is not definitely visualized. Small bowel shows no focal normality or obstruction . The stomach is grossly normal. No free air, free fluid, fluid collections or areas of inflammation. No appreciable adenopathy. Visualized pelvic structures are within normal limits. Atherosclerotic bety cific changes of the arterial system without aneurysm Lumbar spine shows diffuse degenerative changes with faint lytic lucencies and the L4 and L5 vertebral bodies. There is anterior spinal listhesis of L4 over L5 of 8.7 mm. This appears be due to degenerative changes. No discrete fractures. Laminectom y changes from T12 through L5 without sequelae. Bony pelvis is mildly heterogeneous with faint ill-de fined lucencies. Left hip shows a large joint effusion. Minimal joint effusion seen in the right hip. Previous left hip arthroplasty with prominent periprosthetic lucencies and some linear lucencies whi ch could represent a acute fracture to the proximal shaft of the femur including the trochanteric reg ion. IMPRESSION: 1. Consolidation of the right lower lobe with small effusion. This could represent pneumonia versus a telectasis. Mild left basilar atelectasis. 2. Small pericardial effusion. 3. No indication of acute abnormality to the abdomen or pelvis. 4. There are surgical clips near the gallbladder fossa. There is some fluid seen in the gallbladder f lidia region. Unsure if this is a seroma as is fairly simple fluid. No other focal abnormality. 5. Abnormality of the left hip with a large joint effusion. Left hip arthroplasty in place however th ere is periprosthetic lucencies and linear lucencies in the proximal femoral shaft suggesting a fract ure. Suggest correlation to the CT scan of the femur done at same time. Small right hip joint effusio n. 6. Multiple compressions of the vertebral bodies with degenerative changes. Described above. There ar e scattered lucencies seen in the pelvis, vertebral bodies and sternum. These aren't well-defined and could be secondary to osteopenia however could also represent metastatic disease or process such as myeloma. Suggest clinical correlation. 7. Diverticulosis without radiographic indication diverticulitis. 8. Other chronic findings as above. Report Dictated By: Preet Wu at 09/15/2018 9:12 PM Report E-Signed By: Preet Wu at 09/15/2018 9:39 PM WSN:[id number]
[2018-09-15 23:44] VITALS: BP 103/50
[2018-09-16] MEDS: PIPERACILLIN/TAZO SOD* 2.25 GM 2.25 GM in NS(*) 0.9% 100 ML ADDVANT BAG 100 ML IVPB SCH ×4 (00:02→17:25)
[2018-09-16 03:33] VITALS: BP 102/52
[2018-09-16] MEDS: ALBUTEROL/IPRATROPIUM 3 ML NEB NEB SCH ×3 (05:24→17:07)
[2018-09-16 06:06] LABS: PLATELET COUNT, AUTOMATED 149 K/uL (150-450)
[2018-09-16 07:22] VITALS: BP 109/52
[2018-09-16] MEDS: HEPARIN (PORC) 5000 UN/ML VIAL SC SCH ×2 (09:00→20:55)
[2018-09-16] MEDS: FUROSEMIDE 40 MG TAB PO SCH (09:11)
[2018-09-16] MEDS: DOCUSATE SODIUM 100 MG CAP PO SCH ×2 (09:11→20:55)
[2018-09-16] MEDS: PANTOPRAZOLE SOD 40 MG TABEC PO SCH (09:11)
[2018-09-16] MEDS ORDERED: MAGNESIUM HYDROXIDE* 30ML UDCP PO PRN (09:40)
--- NOTE | 2018-09-16 09:42 | General Surgery Progress Note ---
Subjective Progress Notes Subjective no acute events Physical Exam Vital Signs Date Time Temp Pulse Resp B/P (MAP) Pulse Ox O2 Delivery O2 Flow Rate FiO2 09/16/18 07:22 65 109/52 (71) 95 CPAP 7.0 09/16/18 05:26 16 09/16/18 03:33 98.9 Intake and Output 09/16/18 07:00 Intake Total 240 ml Output Total 475 ml Balance -235 ml Intake Oral 240 ml Output Urine Total 475 ml # Voids 2 General Appearance: Other (sleeping) Result Diagram: 09/16/1852209/16/18522 Monitor Interpretation: Normal Sinus Rhythm Assessment and Plan Problems: (1) Cholelithiasis Status: Acute Assessment & Plan: 88 yo male with multiple co-morbidities with symptomatic cholelithiasis possible early cholecystitis. Will admit with bowel rest, IV antibiotics, and close clinical observation. Suspect he will require cholecystectomy given stone appears impacted at the neck of his gallbladder. Will ask internal medicine to consult to optimize his cardiopulm status. 09/12/18: lap darcy if cleared by anesthesia. will likely remove left flank mass at same time. npo. 09/13/18: no acute events. reg diet. ambulate. monitor hb. hold lovenox for now. 09/14/18: clinically doing ok. wheezing. restart lasix. ambulate. cont abx. cxr, ua, bl cx for elevated wbc. 09/15/18: wbc improved but elevated. abd painful. will get ct c/a/p. cont abx. 09/16/18: wbc improving. cont abx for likely pneumonia. ambulate. pain control. diet as alka. (2) Anemia of chronic disease Status: Chronic Assessment & Plan: Long standing anemia due to presumed underlying CA and CKD. Need to consider colonoscopic evaluation to rule out colonic source of anemia. (3) COPD (chronic obstructive pulmonary disease) Status: Chronic (4) History of prostate cancer Status: Chronic (5) CKD (chronic kidney disease) stage 3, GFR 30-59 ml/min Status: Chronic Exam Sepsis Risk: No Definite Risk Problem Qualifiers (1) Cholelithiasis: Cholelithiasis location: gallbladder Cholecystitis presence: with cholecystitis Cholecystitis acuity: acute and chronic Biliary obstruction: without biliary obstruction Qualified Codes: K80.12 - Calculus of gallbladder with acute and chronic cholecystitis without obstruction DORIAN GARZON Sep 16, 2018 09:42
--- NOTE | 2018-09-16 11:09 | Hospitalist Progress Note ---
Subjective Progress Notes Subjective No cp/sob. Staff concerned about his bruising in his arms and abdomen. Physical Exam Vital Signs Date Time Temp Pulse Resp B/P (MAP) Pulse Ox O2 Delivery O2 Flow Rate FiO2 09/16/18 09:15 Nasal Cannula 2.0 09/16/18 07:22 65 109/52 (71) 95 09/16/18 05:26 16 09/16/18 03:33 98.9 Intake and Output 09/16/18 07:00 Intake Total 240 ml Output Total 475 ml Balance -235 ml Intake Oral 240 ml Output Urine Total 475 ml # Voids 2 General Appearance: Alert, Awake, Other (Mild wob) Cardiovascular: Regular Rate and Rhythm Respiratory: Clear to Auscultation Extremities: Edema (trace in shins) Result Diagram: 09/16/1852209/16/18522 Monitor Interpretation: Normal Sinus Rhythm Assessment and Plan Problems: (1) Cholelithiasis Status: Acute Assessment & Plan: Post cholecystectomy. (2) Osteomyelitis of left hip Status: Chronic Assessment & Plan: He is chronically on Levofloxacin 750mg every other day. Holding Levofloxacin for now with the Zosyn. He did have the subdermal nodule (seen on CT) which was excised in the OR. No growth from culture. WBC trending down. (3) CKD (chronic kidney disease) stage 3, GFR 30-59 ml/min Status: Chronic Assessment & Plan: Baseline creatinine is 1.8 to 2.0. Currently at 2.1. Lasix will continue to be held. Follow creatinine. (4) COPD (chronic obstructive pulmonary disease) Status: Chronic Assessment & Plan: Lungs are relatively clear, but he does clear a lot of mucus. Continue working on respiratory toilet. (5) Abnormal CXR Status: Chronic Assessment & Plan: 1cm square density of the left anterior second rib that was seen in 2018, but not in 2017. Also, there appears to be a possible developing interstitial pulmonary fibrosis. CT of the chest didn't have any correlation to the density or interstitial pulmonary fibrosis. (6) NICOLETTE treated with BiPAP Status: Chronic Assessment & Plan: Continue chronic CPAP or BIPAP. Will ask RT to see, his nose mask doesn't appear to fit well causing increased oxygen requirement at night. He likely needs full face mask. (7) Anemia of chronic disease Status: Chronic Assessment & Plan: Hgb/Hct are slightly decreased today. He intermittently receives Aranesp and apparently received a dose the week before admission, he is due for next dose 09/20. Will follow. (8) SVT (supraventricular tachycardia) Status: Resolved Exam Sepsis Risk: No Definite Risk Problem Qualifiers (1) Cholelithiasis: Cholelithiasis location: gallbladder Cholecystitis presence: with cholecystitis Cholecystitis acuity: acute and chronic Biliary obstruction: without biliary obstruction Qualified Codes: K80.12 - Calculus of gallbladder with acute and chronic cholecystitis without obstruction DIALLO MUSE MD Sep 16, 2018 11:09
[2018-09-16 11:54] VITALS: BP 120/59
[2018-09-16] MEDS ORDERED: BISACODYL 10 MG SUPP PR PRN (14:10)
[2018-09-16 15:09] VITALS: BP 152/78
[2018-09-16] MEDS: POLYETHYLENE GLYCOL 17 GM PKT PO SCH (15:12)
[2018-09-16 20:55] VITALS: BP 131/60
[2018-09-16] MEDS: traMADol 50 MG TAB PO PRN (20:55)
[2018-09-16] MEDS: TAMSULOSIN HCL 0.4 MG CAP PO SCH (20:55)
[2018-09-16] MEDS: MELATONIN 3 MG TAB PO PRN (20:55)
[2018-09-16 23:30] VITALS: BP 106/53
[2018-09-17] MEDS: PIPERACILLIN/TAZO SOD* 2.25 GM 2.25 GM in NS(*) 0.9% 100 ML ADDVANT BAG 100 ML IVPB SCH ×2 (00:04→05:49)
[2018-09-17 03:30] VITALS: BP 107/58
[2018-09-17] MEDS ORDERED: NS(*) 0.9% 250 ML BAG 250 ML ONE (05:39)
[2018-09-17] MEDS: ALBUTEROL/IPRATROPIUM 3 ML NEB NEB SCH ×3 (05:43→16:51)
[2018-09-17 06:17] LABS: PLATELET COUNT, AUTOMATED 195 K/uL (150-450)
--- NOTE | 2018-09-17 07:35 | General Surgery Progress Note ---
Subjective Progress Notes Subjective no acute events. slept through the night. Physical Exam Vital Signs Date Time Temp Pulse Resp B/P (MAP) Pulse Ox O2 Delivery O2 Flow Rate FiO2 09/17/18 05:46 67 16 09/17/18 05:38 93 Nasal Cannula 2.5 09/17/18 03:30 98.3 107/58 (74) Intake and Output 09/17/18 07:00 Intake Total 1160 ml Output Total 575 ml Balance 585 ml Intake Oral 960 ml IV Total 200 ml Output Urine Total 575 ml # Voids 1 General Appearance: No Acute Distress, Other Cardiovascular: Other (reg rate) GI: Other (abd soft) Result Diagram: 09/17/1845 09/17/1845 Monitor Interpretation: Normal Sinus Rhythm Assessment and Plan Problems: (1) Cholelithiasis Status: Acute Assessment & Plan: 88 yo male with multiple co-morbidities with symptomatic cholelithiasis possible early cholecystitis. Will admit with bowel rest, IV antibiotics, and close clinical observation. Suspect he will require cholecystectomy given stone appears impacted at the neck of his gallbladder. Will ask internal medicine to consult to optimize his cardiopulm status. 09/12/18: lap darcy if cleared by anesthesia. will likely remove left flank mass at same time. npo. 09/13/18: no acute events. reg diet. ambulate. monitor hb. hold lovenox for now. 09/14/18: clinically doing ok. wheezing. restart lasix. ambulate. cont abx. cxr, ua, bl cx for elevated wbc. 09/15/18: wbc improved but elevated. abd painful. will get ct c/a/p. cont abx. 09/16/18: wbc improving. cont abx for likely pneumonia. ambulate. pain control. diet as alka. 09/17/18: improving. cont abx. ambulate. referral to ecu. (2) Anemia of chronic disease Status: Chronic Assessment & Plan: Long standing anemia due to presumed underlying CA and CKD. Need to consider colonoscopic evaluation to rule out colonic source of anemia. (3) COPD (chronic obstructive pulmonary disease) Status: Chronic (4) History of prostate cancer Status: Chronic (5) CKD (chronic kidney disease) stage 3, GFR 30-59 ml/min Status: Chronic Exam Sepsis Risk: No Definite Risk Problem Qualifiers (1) Cholelithiasis: Cholelithiasis location: gallbladder Cholecystitis presence: with cholecystitis Cholecystitis acuity: acute and chronic Biliary obstruction: without biliary obstruction Qualified Codes: K80.12 - Calculus of gallbladder with acute and chronic cholecystitis without obstruction DORIAN GARZON Sep 17, 2018 07:35
[2018-09-17 08:37] VITALS: BP 114/63
[2018-09-17] MEDS: AZITHROMYCIN(*) 500 MG 500 MG in NS(*) 0.9% 250 ML BAG 250 ML IVPB SCH (09:29)
--- NOTE | 2018-09-17 09:46 | Antimicrobial Stewardship ---
Antimicrobial Stewardship Empiricly appropriate: Yes (S/p Lap Cholecystectomy- now with pneumonia) Significant PMH: Yes (CKD, anemia, COPD, Osteomyelitis (Chronic) of L hip, SVT, NICOLETTE, afib) Support empiric regimen: Yes (Was on Zosyn (s/p cholecystectomy) now cefepime + azithromycin) Approriate Cultures done: Yes (Sputum Cx with G + rods, G + cocci, G - rods -- pending ID and sens) Gram stain show Microbs: Yes (Blood Cx x 2 NGTD- pending) Organism identified: Yes Renal/Hepatic dosing: Yes (CrCl ~27 ml/min, cefepime adjusted) Reviewed for Drug Interaction: Yes (QT prolongation- watch closely with trazodone + azithromycin (no intervention required), levofloxacin stopped (was on for chronic osteo)) Determine cumulative duration: Pneumonia - day 1 09/17/18 (cefepime + azithromycin) Determine standard duration: 5-7 days, depending on clinical response Comment 88 yo M with a PMH of CKD, osteomyelitis of L hip (chronic), COPD, NICOLETTE, anemia, SVT, afib who presented to the ED with abdominal pain, now s/p cholecystectomy. Tmax afebrile, 100.7 (09/13) WBC 18.5-->11.7 Neuts 60-48%, 9-3% bands Chest Xray - CT chest/abd/pelvis- consolidation of RLL Sputum Cx - G+ rods, G+ cocci, G- Rods BLood Cx x 2 - NGTD CrCl ~27ml/min, Scr 2.1 09/13- Zosyn s/p cholecystectomy 09/17/18: Switched to Cefepime + azithromycin Plan treatment for pneumonia, questionable if hospital or community, will cover for both, since minimal improvement on zosyn. Sputum culture is pending and with multiple organisms. Will watch cultures closely. Levofloxacin on hold for chronic osteomyelitis. Soni Mera, PharmD, BCOP SONI MERA Sep 17, 2018 09:46
--- NOTE | 2018-09-17 09:52 | Hospitalist Progress Note ---
Subjective Progress Notes Subjective He is s/p cholecystectomy. He has complaints of constipation. He hasn't had bowel movement in one week. He has abdominal pain. He also feels SOB. Patient Complains of: Cardiovascular: No: Chest Pain Respiratory: Shortness of Breath; No: Cough Physical Exam Vital Signs Date Time Temp Pulse Resp B/P (MAP) Pulse Ox O2 Delivery O2 Flow Rate FiO2 09/17/18 09:32 96 Nasal Cannula 2.0 09/17/18 08:37 98.0 89 28 114/63 (80) Intake and Output 09/17/18 07:00 Intake Total 1160 ml Output Total 575 ml Balance 585 ml Intake Oral 960 ml IV Total 200 ml Output Urine Total 575 ml # Voids 1 General Appearance: Alert, Awake, No Acute Distress, Afebrile Neuro: No Gross deficits Cardiovascular: Regular Rate and Rhythm Respiratory: No Respiratory Distress, Other (diffuse rales bilateral lower lobes) GI: Other (abdomen distention) Extremities: Warm, Perfused; No Edema Psych: Alert & Oriented X3, Appropriate Mood & Affect Result Diagram: 09/17/18 0545 09/17/18 0545 Monitor Interpretation: Normal Sinus Rhythm Assessment and Plan Problems: (1) Cholelithiasis Status: Acute Assessment & Plan: Post cholecystectomy. (2) Pneumonia Status: Acute Assessment & Plan: Seen on CT, right lower lobe. Likely atelectasis in left lower lobe. Likely secondary after surgery. Will treat as hospital acquired, will start on Cefepime and Azithromycin. Continue to hold Levaquin. Sputum culture pending showing Gram positive rods and cocci with WBCs. (3) Osteomyelitis of left hip Status: Chronic Assessment & Plan: He is chronically on Levofloxacin 750mg every other day. Holding Levofloxacin for now with antibiotic use. He did have the subdermal nodule (seen on CT) which was excised in the OR. No growth from culture. WBC trending down. (4) CKD (chronic kidney disease) stage 3, GFR 30-59 ml/min Status: Chronic Assessment & Plan: Baseline creatinine is 1.8 to 2.0. Currently at 2.1. Lasix will continue to be held. Follow creatinine. (5) COPD (chronic obstructive pulmonary disease) Status: Chronic Assessment & Plan: Lungs are relatively clear, but he does clear a lot of mucus. Continue working on respiratory toilet. (6) Abnormal CXR Status: Chronic Assessment & Plan: 1cm square density of the left anterior second rib that was seen in 2018, but not in 2017. Also, there appears to be a possible developing interstitial pulmonary fibrosis. CT of the chest didn't have any correlation to the density or interstitial pulmonary fibrosis. (7) NICOLETTE treated with BiPAP Status: Chronic Assessment & Plan: Continue chronic CPAP or BIPAP. Will ask RT to see, his nose mask doesn't appear to fit well causing increased oxygen requirement at night. He likely needs full face mask. (8) Anemia of chronic disease Status: Chronic Assessment & Plan: Hgb/Hct are slightly decreased today. He intermittently receives Aranesp and apparently received a dose the week before admission, he is due for next dose 09/20. He received on unit transfusion 09/14. Will follow. (9) SVT (supraventricular tachycardia) Status: Resolved Exam Sepsis Risk: No Definite Risk Problem Qualifiers (1) Cholelithiasis: Cholelithiasis location: gallbladder Cholecystitis presence: with cholecystitis Cholecystitis acuity: acute and chronic Biliary obstruction: without biliary obstruction Qualified Codes: K80.12 - Calculus of gallbladder with acute and chronic cholecystitis without obstruction SHAYY BENOIT ASSISTANT DISTRIBUTION MANAGER Sep 17, 2018 09:52
[2018-09-17] MEDS: CEFEPIME HCL 2 GM VIAL IVP SCH ×2 (10:11→10:38)
[2018-09-17] MEDS: HEPARIN (PORC) 5000 UN/ML VIAL SC SCH ×2 (10:12→20:20)
[2018-09-17] MEDS: DOCUSATE SODIUM 100 MG CAP PO SCH ×2 (10:12→20:19)
[2018-09-17] MEDS: PANTOPRAZOLE SOD 40 MG TABEC PO SCH (10:12)
[2018-09-17] MEDS: ACETAMINOPHEN 325 MG TAB PO PRN (10:12)
[2018-09-17] MEDS: POLYETHYLENE GLYCOL 17 GM PKT PO SCH (10:13)
[2018-09-17] MEDS: FUROSEMIDE 40 MG TAB PO SCH (10:13)
--- NOTE | 2018-09-17 10:40 | NUR ---
Occupational Therapy Impression Pt. required Mod A to transfer from supine to sit at EOB and Max A to perform toileting activities. OT recommends d/c to short term subacute rehab for continued therapy prior to returning to [facility]. Continue with POC. Occupational Therapy Goals 1) Pt will be SBA UB dressing. 2) Pt will be SBA toilet task. 3) Pt will be SBA grooming/hygiene. Patient's Goal
--- NOTE | 2018-09-17 11:40 | NUR ---
Physical Therapy Impression Pt is now on isolation related to pneumonia. Pt requires significant encouragement to ambulate to/from doorway of room. O2 increased for exertion and pt followed with W/C in the event that he may choose to ambulate further. Pt chose to sit in W/C at doorway of room after only ambulating approximately 15'. After a rest break, pt was agreeable to c stand and complete 180 degree turn and ambulate back to chair for noon meal. Physical Therapy Goals 1. Pt to be Min assist for bed mobility and supine to/from sit transfers 2. Pt to be CGA for sit to/from stand transfers 3. Pt to be SBA/Modified indep with least restrictive device to ambulate 50' with vital signs in safe range. Patient's Goals
--- NOTE | 2018-09-17 14:03 | NUR ---
ECF Referral - received referral for patient to come to ECF to complete IV antibiotics and general strengthening prior to returning to [facility]. Discussed recommendation with patient "What choice do I have?" States he knows the nurses on ECF and he's okay with coming up. PASRR negative. Can be admitted when medically ready.
[2018-09-17 15:22] VITALS: BP 152/74
--- NOTE | 2018-09-17 15:43 | Medical Nutrition Therapy ---
Nutrition Anthropometrics Height (Inches): 70.00 Height (Calculated Centimeters: 177.078930 Weight (Pounds): 198 Weight (Calculated Kilograms): 90.066 BMI: 28.5 Keaton Nutrition Score: Adequate Keaton Nutrition Risk Score: 17 Dietary Referral Nutrition Risk Factors: Non-Healing Wound Nutrition Risk Comment: non-healing wound-=infection in hip Physical Findings Physical Appearance: Overweight BMI 25-29 Skin Appearance Skin Appearance: Edema Edema Location Modifier: Both Edema Location: Lower Extremity Type of Edema: Degree of Edema: 1+ Gastrointestinal Symptoms GI Symtoms: Constipation Tube Present: Bowel Sounds: Recent Bowel Pattern: Stool Characteristics: Nutritional Diagnosis Nutritional Risk Acuity 2: Chronic Renal Failure, Abcess/Non-Healing Wound Nutritional Risk Acuity 3: OR & > 80 yrs, Nutrit Anemia, Cancer, GERD, COPD Unstable Nutritional Risk Acuity 4: Age Related Past Medical History: Septic bursitis, parolysmal pupraventricular tachycardia, anemia, GERD, non-pitted edema of LF foot, prostate cancer, depression, sleep apnea, COPD, CKD stage 3, hyponatremia, skin cancer, prostate cancer, acute urinary retention Nutritional Acuity: 2-Moderate Nutrition Diagnosis: Increased Nutrient Needs Nutrition Etiology: Physiological Causes Nutrition Problem/Etiology/Sym: Increased nutrient needs related to physioloigcal causes as evidenced by dx of acute cholelithiasis. Energy Requirement: 2060 (MSJ 1.1 TEF, 1.2 AF) Protein Requirement: 90 (1g of AA/kg of BW) Fluid Requirement: 2060 (1ml/kcal) Diet Type: Diet as Tolerated VINNIE/REG Nutrition Intervention: Incr diet as tolerated Nutrition Monitoring & Eval Nutrition Goals: Eat 50-100% Meal RD Patient Assessment Time: [address] Assessment Type: RD Assessment Patient Nutrition Acuity: 2-Moderate Follow Up Date: Sep 20, 2018 Nutritional Comment: 08/15: Dx with acute cholelithiasis, pre-op evaluation, risk of pumonary compliction. Pt has hx of Septic bursitis, parolysmal pupraventricular tachycardia, anemia, GERD, non-pitted edema of LF foot, prostate cancer, depression, sleep apnea, COPD, CKD stage 3, hyponatremia, skin cancer, prostate cancer, acute urinary retention. Pt has decreased sodium (136), elevated BUN (26-28), and elevated creatinine (2.2-2.3). NPO day 1. Continue to monitor. -JJ 09/14: Pt s/p lap kyle., doing well. Pt has elevated BUN (25), creatinine (2.00), and decreased sodium (133). Pt on a VINNIE diet consuming 75% of meals on average. Continue to monitor. -JJ 09/17: Pt doing better and will probably be moved to [facility] in next day or two. Pt has decreased sodium (133) and CO2 (21) levels. Pt has elevated BUN (34), and creatinine (2.1). Pt is on heaparin and furosemide. Pt is on VINNIE diet and consumed 100% of breakfast on 09/17. Continue to monitor intake and serum K+. -YANA BELLO Sep 17, 2018 09:45
[2018-09-17] MEDS: MELATONIN 3 MG TAB PO PRN (20:18)
[2018-09-17] MEDS: TAMSULOSIN HCL 0.4 MG CAP PO SCH (20:18)
[2018-09-17 20:19] VITALS: BP 143/71
[2018-09-17 23:30] VITALS: BP 132/81
[2018-09-18] MEDS: traMADol 50 MG TAB PO PRN (02:29)
[2018-09-18 02:33] VITALS: BP 118/79
[2018-09-18] MEDS: ALBUTEROL/IPRATROPIUM 3 ML NEB NEB SCH (05:51)
[2018-09-18 05:59] LABS: PLATELET COUNT, AUTOMATED 235 K/uL (150-450)
[2018-09-18 07:43] VITALS: BP 143/66
[2018-09-18] MEDS: PANTOPRAZOLE SOD 40 MG TABEC PO SCH (08:39)
[2018-09-18] MEDS: FUROSEMIDE 40 MG TAB PO SCH (08:39)
[2018-09-18] MEDS: DOCUSATE SODIUM 100 MG CAP PO SCH (08:39)
[2018-09-18] MEDS: POLYETHYLENE GLYCOL 17 GM PKT PO SCH (08:39)
[2018-09-18] MEDS: HEPARIN (PORC) 5000 UN/ML VIAL SC SCH (08:39)
[2018-09-18] MEDS: AZITHROMYCIN(*) 500 MG 500 MG in NS(*) 0.9% 250 ML BAG 250 ML IVPB SCH (09:58)
[2018-09-18] MEDS: CEFEPIME HCL 2 GM VIAL IVP SCH (11:10)
[2018-09-26] MEDS ORDERED: DEN60I SUBQ (09:34)
[2018-09-26] MEDS ORDERED: IPRA3AMP10 IH (16:34)
[2018-09-26] MEDS ORDERED: Nebulizer (16:34)
[2018-10-03] MEDS ORDERED: TRAM-420 PO (13:30)
[2018-10-03] MEDS ORDERED: ALPR-1 PO (13:30)
--- NOTE | 2018-10-12 13:48 | Hospitalist Depart ---
Discharge Summary Reason for Hosp/Final Diag: (1) Cholelithiasis Status: Acute Hospital Course & Plan: 88 yo male with multiple co-morbidities with symptomatic cholelithiasis possible early cholecystitis. Will admit with bowel rest, IV antibiotics, and close clinical observation. Suspect he will require cholecystectomy given stone appears impacted at the neck of his gallbladder. Will ask internal medicine to consult to optimize his cardiopulm status. 09/12/18: lap darcy if cleared by anesthesia. will likely remove left flank mass at same time. npo. 09/13/18: no acute events. reg diet. ambulate. monitor hb. hold lovenox for now. 09/14/18: clinically doing ok. wheezing. restart lasix. ambulate. cont abx. cxr, ua, bl cx for elevated wbc. 09/15/18: wbc improved but elevated. abd painful. will get ct c/a/p. cont abx. 09/16/18: wbc improving. cont abx for likely pneumonia. ambulate. pain control. diet as alka. 09/17/18: improving. cont abx. ambulate. referral to ecu. (2) Anemia of chronic disease Status: Chronic Hospital Course & Plan: Long standing anemia due to presumed underlying CA and CKD. Need to consider colonoscopic evaluation to rule out colonic source of anemia. (3) COPD (chronic obstructive pulmonary disease) Status: Chronic (4) History of prostate cancer Status: Chronic (5) CKD (chronic kidney disease) stage 3, GFR 30-59 ml/min Status: Chronic Departure Weight (Pounds): 198 Weight (Ounces): 9.0 Condition: Improved PT/OT Follow Up For: PT For Strengthening, OT For ADL's, PT Evaluation and Treat, OT Evaluation and Treat Discharge Instructions Home Meds Active Scripts Tramadol Hcl (TRAMADOL HCL) 50 Mg Tablet, 1 TAB PO TID PRN for PAIN, #30 TAB 0 Refills Prov:RONNIE PACHECO APRN-C 10/03/18 Alprazolam 0.25 Mg Tab (XANAX 0.25 MG TAB) 0.25 Mg Tablet, 0.5-1 TAB PO BID PRN for ANXIETY, #30 TAB 0 Refills Prov:RONNIE PACHECO APRN [employer]-C 10/03/18 [Nebulizer] No Conflict Check Prov:RONNIE PACHECO APRN 09/26/18 Ipratropium/Albuterol Sulfate (IPRAT-ALBUT 0.5-3(2.5) MG/3 ML) 3 Ml Ampul.neb, 3 ML IH Q4H PRN for wheezing / shortness of breath, #1 BOX 2 Refills Prov:RONNIE PACHECO APRN 09/26/18 Polyethylene Glycol 3350 (MIRALAX) 17 Gm Powd.pack, 8.5 GM PO DAILY PRN for CONSTIPATION, #1 BOTTLE 5 Refills Prov:VALE BUTT MD 12/12/17 Tamsulosin Hcl (TAMSULOSIN HCL) 0.4 Mg Cap.er.24h, 0.4 MG PO QHS for 30 Days, #30 CAP 1 Refill Prov:PHOEBE LOJA MD 12/09/17 Pantoprazole Sodium (PANTOPRAZOLE SODIUM) 20 Mg Tablet.dr, 1 TAB PO QDAY, #90 TAB.SR 3 Refills Prov:RONNIE PACHECO APRN-[place] 10/23/17 Reported Medications Denosumab (PROLIA) 60 Mg/1 Ml Injs, 60 MG SUBQ [id number] 09/26/18 Furosemide (FUROSEMIDE) 40 Mg Tablet, 1 TAB PO QDAY, TAB 09/15/18 Loperamide Hcl (LOPERAMIDE) 2 Mg Capsule, 2 MG PO PRN for DIARRHEA, CAPSULE 09/11/18 Calcium Carbonate (TUMS X-STR) 300 Mg Tab.chew, 750 MG PO PRN PRN for GAS/HEARTBURN, TAB.CHEW 12/25/17 Magnesium Hydroxide (MILK OF MAGNESIA) 400 Mg/5 Ml Oral.susp, 400 MG PO DAILY PRN for CONSTIPATION, BOTTLE 12/07/17 Levofloxacin 750 Mg Tab (LEVAQUIN 750 MG TAB) 750 Mg Tablet, 1 TAB PO QODAY 05/02/16 Oxygen (OXYGEN) Inha, 3 L INH cont, L 03/10/16 Bipap Home (BIPAP HOME) Inha, HS with oxygen 3 liters 03/10/16 Diet: Regular Activity: As Tolerated Special Instructions: Venous Thromboembolism Antithrombotics Is Pt On Any Antithrombotics?: No Problem Qualifiers (1) Cholelithiasis: Cholelithiasis location: gallbladder Cholecystitis presence: with cholecystitis Cholecystitis acuity: acute and chronic Biliary obstruction: without biliary obstruction Qualified Codes: K80.12 - Calculus of gallbladder with acute and chronic cholecystitis without obstruction DORIAN GARZON Oct 12, 2018 13:48
== END 2018-09-18 10:22 | DRG 579 ==
LOC: ER 11:32 → OR 17:19 → SWB 18:53 → MED 09-12 12:50 → UNDODISIN 09-12 17:26
PROVIDERS: ADMIT Surgery; ATTEND Surgery
PROC: 0FT44ZZ Resection of Gallbladder, Percutaneous Endoscopic Approach (ICD-10-PCS; principal; 2018-09-12)
PROC: 0WBF4ZZ Excision of Abdominal Wall, Percutaneous Endoscopic Approach (ICD-10-PCS; 2018-09-12)
DX: C44.792 Other specified malignant neoplasm of skin of right lower limb, including hip (principal); J18.9 Pneumonia, unspecified organism; K80.12 Calculus of gallbladder with acute and chronic cholecystitis without obstruction; M86.68 Other chronic osteomyelitis, other site; I47.1 Supraventricular tachycardia; K65.4 Sclerosing mesenteritis; J44.0 Chronic obstructive pulmonary disease with (acute) lower respiratory infection; I12.9 Hypertensive chronic kidney disease with stage 1 through stage 4 chronic kidney disease, or unspecified chronic kidney disease; N18.3 Chronic kidney disease, stage 3 (moderate); D63.1 Anemia in chronic kidney disease; G47.33 Obstructive sleep apnea (adult) (pediatric); K21.9 Gastro-esophageal reflux disease without esophagitis; J84.10 Pulmonary fibrosis, unspecified; K59.00 Constipation, unspecified; Y92.230 Patient room in hospital as the place of occurrence of the external cause; Z87.891 Personal history of nicotine dependence; Z99.81 Dependence on supplemental oxygen
CPT/HCPCS: 36415; 36430; 71045; 71046; 71100; 71250; 72192; 74019; 74176; 76705; 81001; 82040; 82150; 82247; 82310; 82374; 82435; 82565; 82947; 83690; 84075; 84132; 84155; 84295; 84450; 84460; 84520; 85025; 85610; 86850; 86900; 86901; 86902; 86922; 87040; 87070; 87073; 87176; 87205; 88304; 88305; 93005; 94640; 94660; 94667; 94668; 97161; 97165; C9113; C9399; J0456; J0692; J1170; J1644; J2270; J2370; J2405; J2543; J3010; J3490; J7050; J7120; J7613; P9016

== ENCOUNTER 2018-09-12 12:11 | Inpatient (IN) | payer MEDICARE, OTHER, MEDICAID ==
[2015-07-22 16:00] VITALS: BMI 31.4
[~2018-09-12 12:11] MED LIST changes: +LOPE2CAP88 PO; +NORMOSOL R SOLN(*) 1000 ML BAG 1,000 ML IV PRN
[2018-09-12] MEDS ORDERED: MIDAZOLAM 2 MG/2 ML VIAL IVP PRN (12:15)
[2018-09-12] MEDS ORDERED: BACITRACIN OINT 0.9 GM PKT TP ONE (13:26)
[2018-09-12] MEDS ORDERED: fentaNYL CITR 100 MCG/2 ML AMP ONE (14:28)
[2018-09-12] MEDS ORDERED: ALBUTEROL/IPRATROPIUM 3 ML NEB ONE (14:33)
[2018-09-12 15:48] LABS: PLATELET COUNT, AUTOMATED 147 K/uL (150-450)
[2018-09-12] MEDS ORDERED: HYDROmorphone HCL 2 MG/ML SDV ONE (17:41)
== END 2018-09-12 17:26 | disposition short-term general hospital (02) | DRG 951 ==
LOC: OR 12:11 → MED 17:26
PROVIDERS: ADMIT Surgery; ATTEND Surgery
DX: Z02.89 Encounter for other administrative examinations (principal)
CPT/HCPCS: 36415; 85025; 87070; 87073; 87176; 87205; 88304; 88305; 94660; C9399; J2370; J2405; J3010; J3490

== ENCOUNTER 2018-09-14 15:46 | Outpatient (RCR) | payer MEDICARE, OTHER, MEDICAID ==
[2015-07-22 16:00] VITALS: BMI 31.4
[~2018-09-14 15:46] MED LIST changes: -NORMOSOL R SOLN(*) 1000 ML BAG 1,000 ML IV PRN
[2018-09-15] MEDS ORDERED: FURO-47 PO (16:33)
[2018-09-15] MEDS ORDERED: ALPR-1 PO (16:33)
== END 2018-09-17 16:47 | disposition home or self-care (01) ==
LOC: SPU 15:46
PROVIDERS: ATTEND Internal Medicine
DX: D46.4 Refractory anemia, unspecified (principal); D63.8 Anemia in other chronic diseases classified elsewhere; Z85.46 Personal history of malignant neoplasm of prostate

== ENCOUNTER 2018-09-18 10:28 | Inpatient (IN) | payer MEDICARE, OTHER, MEDICAID ==
[~2018-09-18] VITALS: Ht 177.8 cm; Wt 87.1 kg
[~2018-09-18 10:28] MED LIST changes: +ALPR-1 PO
[2018-09-18] MEDS ORDERED: traMADol 50 MG TAB PO PRN (11:49)
[2018-09-18] MEDS ORDERED: SALINE 0.65% NAS SPR 44 ML BTL PRN (11:49)
[2018-09-18] MEDS ORDERED: ALBUTEROL 2.5 MG/3 ML NEB NEB PRN (11:49)
[2018-09-18] MEDS ORDERED: LEVOFLOXACIN 750 MG TAB PO SCH (11:49)
[2018-09-18] MEDS ORDERED: MAGNESIUM HYDROXIDE* 30ML UDCP PO PRN (11:49)
[2018-09-18] MEDS ORDERED: ACETAMINOPHEN 325 MG TAB PO PRN (11:49)
[2018-09-18] MEDS ORDERED: HYDROmorphone HCL 2 MG/ML SDV IVP PRN (11:49)
[2018-09-18] MEDS ORDERED: MELATONIN 3 MG TAB PO PRN (11:49)
[2018-09-18] MEDS ORDERED: NALOXONE HCL 0.4 MG/ML VIAL IVP PRN (11:49)
[2018-09-18] MEDS ORDERED: traZODone HCL 50 MG TAB PO PRN (11:49)
[2018-09-18] MEDS ORDERED: BISACODYL 10 MG SUPP PR PRN (11:49)
[2018-09-18] MEDS: ALBUTEROL/IPRATROPIUM 3 ML NEB NEB SCH ×2 (12:00→17:19)
[2018-09-18 12:02] VITALS: BP_SYST 14; BP_SYST 140; BP_DIAS 68
--- NOTE | 2018-09-18 12:07 | NUR ---
Occupational Therapy Impression OT evaluation completed. Please refer to reports for details regarding plan of care and goals. Pt. would benefit from OT services 5x/ week to increase independence in ADL's. Occupational Therapy Goals 1. Pt. to perform dressing activities with Min A. 2. Pt. to perform grooming activities, seated, with I. 3. Pt. to perform toileting activities with Min A. 4. Pt. to perform showering activities with Mod A. 5. Pt. to improve Sanjay Index of ADL score by 2 points. Patient's Goal
--- NOTE | 2018-09-18 12:19 | OT ECF NOTE ---
Type of Note: Initial Note Primary Medical Diagnosis: Cholecystectomy Occupational Therapy Evaluation Date: 09/18/18 SUBJECTIVE: Prior Hospitalization: Pt. admitted to [facility] medical/surgical floor on 09/11/18. Prior Level of Function: Ambulating short distances with use of 4 wheeled walker, use of electric scooter to navigate longer distances. Prior Living Status: [facility] CODE STATUS- DNR/DNI Community Services: None utilized at this time. Home Accessibility: All needs on one level Equipment Owned: Rollator Medical Complications/Past Medical History: Please refer to reports for details. Psychosocial Support: Very supportive family in [place]. Pain Scale (0-10): None stated at time of evaluation. OBJECTIVE: Strength: MMT: Right Left Shoulder Flexion [*] [*] Elbow Flexion [*] [*] Wrist Extension [*] [*] Director Telemetry [*] [*] (5= normal, 4= good, 3= fair, 2= poor, 1= trace) ROM: Both upper extremities WFL Functional Transfer: Assistive Device: Front wheeled walker Gait belt Transfer Ability: CGA ADL: Upper body dressing: Assistive device: Upper body dressing ability: Lower body dressing: Assistive device: Lower body dressing ability: Max- total A Toileting: Assistive device: Bedside Commode Toileting ability: Maximum assistance Grooming/hygiene: N/T Assistive device: Grooming ability: Bathing: N/T Assistive device: Bathing ability: Standardized Assessment: Sanjay Index of Activities of Daily Living- Pt. scored a 7/20 on this Index upon initial evaluation. ASSESSMENT: Pt. is a 88 year old male admitted to [facility] medical/surgical floor, from [facility] on 09/11/18 with complaints of RUQ abdominal pain. Pt. underwent a cholecystectomy by Dr. Muhammad on 09-12-18. Pt. was also diagnosed with pneumonia on 09/17/18. Pt.'s previous level of functioning was the ability to perform transfers with use of rollator walker and transport self to/from meals with use of electric scooter. Pt. currently is requiring high demands of O2 with activity (8L) and requires Max A to perform bed mobility and all toileting activities. [facility] to address independence with ADL's as well as functional mobility. Problem List/Current Limitations: Pain Decreased activity alka Generalized weakness Short Term Goals: 1. Pt. to perform dressing activities with Min A. 2. Pt. to perform grooming activities, seated, with I. 3. Pt. to perform toileting activities with Min A. 4. Pt. to perform showering activities with Mod A. 5. Pt. to improve Sanjay Index of ADL score by 2 points. Web Master Goals: Return to [facility]. Patient Goals: Return to [facility] Rehabilitation Prognosis: Fair Barriers to Discharge: Advanced age, multiple co-morbidities. PLAN: The patient will benefit from skilled occupational therapy services 5 times per week for 2 weeks including: Ther ex ADL training Safety training Ther act IADL training Transfer training Adaptive equip training Bed mobility Thank you for this referral. If you have any questions, concerns, or comments about this report or plan, please contact me at . Angely Alberts OTR/L Occupational Therapy [facility]
--- NOTE | 2018-09-18 14:04 | Consultant Pharmacy Review ---
Cylindrical Mixer Review Medication Review Do All Mecications have a Diag: Yes Beers Criteria Medication 2014 Proton Pump Inhibitors: Pantoprazole (Patient on Protonix 40 mg po qday. Watch for risk of fall and fracture) Other General Cautions 1- Tramadol and Hydromorphone: Watch for risk of slowed/difficult breathing or prolonged sedation. 2- When restarting Levaquin, assess risk of QT prolongation if Azithromycin is continued (they both prolong QT) Pneumococcal Vaccine HX Pneumo Vac ([id number]): Yes (2017) HX Pneumo Vac (Pneumovax): Yes (2018) KRISTINE MAYNARD V Sep 18, 2018 14:04
[2018-09-18 16:15] VITALS: BP_SYST 104; BP_SYST 131; BP_DIAS 64; BP_DIAS 75
[2018-09-18] MEDS: TAMSULOSIN HCL 0.4 MG CAP PO SCH (20:29)
[2018-09-18] MEDS: DOCUSATE SODIUM 100 MG CAP PO SCH (20:29)
[2018-09-18] MEDS: HEPARIN (PORC) 5000 UN/ML VIAL SC SCH (20:29)
[2018-09-19] MEDS: ALBUTEROL/IPRATROPIUM 3 ML NEB NEB SCH ×3 (05:23→18:16)
[2018-09-19 08:12] VITALS: BMI 29.0
[2018-09-19 08:27] VITALS: BP 136/78
[2018-09-19] MEDS ORDERED: NS(*) 0.9% 500 ML BAG 500 ML ONE (09:11)
[2018-09-19] MEDS ORDERED: NS 0.9% 500 ML VISIV BAG IV PRN (09:20)
[2018-09-19] MEDS: DOCUSATE SODIUM 100 MG CAP PO SCH ×2 (09:23→20:39)
[2018-09-19] MEDS: FUROSEMIDE 40 MG TAB PO SCH (09:23)
[2018-09-19] MEDS: PANTOPRAZOLE SOD 40 MG TABEC PO SCH (09:23)
[2018-09-19] MEDS: HEPARIN (PORC) 5000 UN/ML VIAL SC SCH ×2 (09:23→20:39)
[2018-09-19] MEDS: POLYETHYLENE GLYCOL 17 GM PKT PO SCH (09:23)
[2018-09-19] MEDS: AZITHROMYCIN(*) 500 MG 500 MG in NS(*) 0.9% 250 ML BAG 250 ML IVPB SCH (09:25)
[2018-09-19] MEDS ORDERED: NS 0.9% 500 ML BAG IV PRN (09:55)
[2018-09-19] MEDS ORDERED: NS(*) 0.9% 250 ML BAG 250 ML IVPB PRN (09:55)
[2018-09-19] MEDS: CEFEPIME HCL 2 GM VIAL IVP SCH (11:10)
--- NOTE | 2018-09-19 11:25 | NUR ---
Physical Therapy Impression Please refer to Eval note for specifics. Pt completed TUG test in 2 min 16 seconds requires CGA/Min assist for sit to/from stand transfers. Pt also requires increase supplemental O2 during increased exertion Physical Therapy Goals 1. Pt to be SBA/Modified indep with sit to/from stand transfers 2. Pt to be Min assist for bed mobility and supine to/from sit trnsfrs 3. Pt to ambulate with least restrictive device x 50' with improved functionality, as demonstrated by improved TUG test. Patient's Goals
--- NOTE | 2018-09-19 13:51 | NUR ---
Occupational Therapy Impression Pt alert, extremely resistant to functional activity. Requesting to nap. Tearful, perseverating on dx of pneumonia. Support and encouragement offered. CGA ambulation x30ft with RW. Max A threading LB clothing, Min A pulling brief over hips. Min A supine to sit and sit to supine. SpO2 WNL on 3L. Continue POC. Occupational Therapy Goals 1. Pt. to perform dressing activities with Min A. 2. Pt. to perform grooming activities, seated, with I. 3. Pt. to perform toileting activities with Min A. 4. Pt. to perform showering activities with Mod A. 5. Pt. to improve Sanjay Index of ADL score by 2 points. Patient's Goal
[2018-09-19] MEDS ORDERED: PREPARATION H CREAM 27 GM TUBE PR PRN (14:05)
[2018-09-19 15:07] VITALS: Ht 177.8 cm; Wt 87.1 kg
--- NOTE | 2018-09-19 15:08 | Medical Nutrition Therapy ---
Nutrition Anthropometrics Height (Inches): 70.00 Height (Calculated Centimeters: 177.120594 Weight (Pounds): 202 Weight (Calculated Kilograms): 91.881 BMI: 29.1 Keaton Nutrition Score: Probably Inadequate Keaton Nutrition Risk Score: 15 Dietary Referral Nutrition Risk Factors: Non-Healing Wound Nutrition Risk Comment: non-healing wound-=infection in hip Physical Findings Physical Appearance: Overweight BMI 25-29 Skin Appearance Skin Appearance: Edema Edema Location Modifier: Both Edema Location: Type of Edema: Degree of Edema: 1+ Gastrointestinal Symptoms GI Symtoms: Tube Present: Bowel Sounds: Recent Bowel Pattern: Stool Characteristics: Soft Nutritional Diagnosis Nutritional Risk Acuity 2: Chronic Renal Failure, Abcess/Non-Healing Wound Nutritional Risk Acuity 3: OR & > 80 yrs, Cancer, GERD, COPD Unstable Nutritional Risk Acuity 4: Age Related Past Medical History: Septic bursitis, parolysmal pupraventricular tachycardia, anemia, GERD, non-pitted edema of LF foot, prostate cancer, depression, sleep apnea, COPD, CKD stage 3, hyponatremia, skin cancer, prostate cancer, acute urinary retention Nutritional Acuity: 2-Moderate Nutrition Diagnosis: Increased Nutrient Needs Nutrition Etiology: Physiological Causes Nutrition Problem/Etiology/Sym: Increased nutrient needs related to physiological causes as evidenced by dx cancer and CKD-stage 3. Energy Requirement: 2086 (MSJ, 1.1 TEF, 1.2 AF) Protein Requirement: 91 (1g AA/kg of BW) Fluid Requirement: 2086 (1ml/kcal) Diet Type: Diet as Tolerated VINNIE/REG Nutrition Intervention: Cont diet as ordered Drug: Diuretics Drug/Nutrition Recommendations: Check Serum K+ Diet Comment To RSA: LACTOSE INTOLERANT--DO NOT SERVE ALL FOODS WITH LACTOSE Offer high protein foods. Nutrition Monitoring & Eval Nutrition Goals: Eat 50-100% Meal Nutrition Follow-Up: Good Intake RD Patient Assessment Time: [address] Assessment Type: RD Re-Assessment Patient Nutrition Acuity: 2-Moderate Follow Up Date: Sep 25, 2018 Nutritional Comment: 09/17: [facility] with recent cholecystectomy and pneumonia. Pt has hx of Septic bursitis, parolysmal pupraventricular tachycardia, anemia, GERD, non-pitted edema of LF foot, prostate cancer, depression, sleep apnea, COPD, CKD stage 3, hyponatremia, skin cancer, prostate cancer, acute urinary retention. No labs available at this time. Pt is currently taking heparin and furosemide. Pt is LACTOSE INTOLERANT and requests not to be served lactose. Offer pt high protein foods. Pt is on VINNIE diet consuming 75-100% of meals and refusing snacks. Continue to monitor serum K+ and diet intake. -YANA BELLO Sep 19, 2018 08:23
[2018-09-19 17:15] VITALS: BP 140/68
[2018-09-19] MEDS: TAMSULOSIN HCL 0.4 MG CAP PO SCH (20:39)
--- NOTE | 2018-09-19 21:37 | NUR ---
patient has been refusing to reposition to his side. discussed with him the increased skin breakdown on his buttocks and how the best way was to prevent it. He verbalized understanding but still wanted to remain on his back. Agreed to repositioning at a later time.
[2018-09-20] MEDS: ALBUTEROL/IPRATROPIUM 3 ML NEB NEB SCH ×3 (05:25→17:20)
[2018-09-20 08:00] VITALS: BP 156/82
--- NOTE | 2018-09-20 08:53 | NUR ---
Physical Therapy Impression Pt with good initiation of bed mobility, requiring Monica to pull to a seated position at EOB, pt mod I) with scooting to EOB. Pt completed STS transfers with CGA/SBA with RW. Pt was incontinent of bowel and [place] [facility] [place] Pt completed pericare with encouragement from PT, but PT did assist to ensure thorough cleaning. Short distance ambulation complete from BSC to chair with RW and CGA. Pt with good tolerance and fair dynamic balance demonstrated. Physical Therapy Goals Patient's Goals
[2018-09-20] MEDS: POLYETHYLENE GLYCOL 17 GM PKT PO SCH (08:56)
[2018-09-20] MEDS: FUROSEMIDE 40 MG TAB PO SCH (08:56)
[2018-09-20] MEDS: DOCUSATE SODIUM 100 MG CAP PO SCH ×2 (08:56→20:27)
[2018-09-20] MEDS: PANTOPRAZOLE SOD 40 MG TABEC PO SCH (08:56)
[2018-09-20] MEDS ORDERED: DARBEPOETIN ESRD 100 MCG/0.5ML SYR SC ONE (09:00)
--- NOTE | 2018-09-20 09:05 | General Surgery Progress Note ---
Subjective Progress Notes Subjective delayed note (pt seen 09/19/18) no acute events. Physical Exam Vital Signs Date Time Temp Pulse Resp B/P (MAP) Pulse Ox O2 Delivery O2 Flow Rate FiO2 09/20/18 05:20 95 Bi-PAP 6.0 09/19/18 18:17 86 18 09/19/18 17:15 99.3 140/68 (92) l Intake and Output 09/20/18 07:00 Intake Total 1440 ml Output Total 875 ml Balance 565 ml Intake Oral 1150 ml IV Total 290 ml Output Urine Total 875 ml # Bowel Movements 1 General Appearance: Other (pt sleeping) Assessment and Plan Problems: (1) Cholelithiasis Status: Acute Assessment & Plan: 09/19/18: s/p lap darcy. doing well. diet as alka. cont abx for pnuemonia. 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 DORIAN GARZON Sep 20, 2018 09:05
[2018-09-20] MEDS: HEPARIN (PORC) 5000 UN/ML VIAL SC SCH ×2 (09:19→20:27)
[2018-09-20] MEDS: AZITHROMYCIN(*) 500 MG 500 MG in NS(*) 0.9% 250 ML BAG 250 ML IVPB SCH (09:19)
[2018-09-20] MEDS: CEFEPIME HCL 2 GM VIAL IVP SCH (10:47)
--- NOTE | 2018-09-20 14:24 | NUR ---
Resident consistently heard cursing at staff, yelling so other residents were complaining. Overheard him scream to the Pit Hand, Agnieszka Gaines to "get out" when she asked him if there was anything she could bring to him to help pass the time. Informed resident that he did not need to curse at staff and to please try to be respectful, his behavior was disruptive and unacceptable. When questioned what was upsetting him so much on this stay "I just wish I would either get better of ". Ester, daughter notified of conversation.She is aware and states "I just don't know what's gotten into him". Will attempt to work with resident to determine what is making him so frustrated on a later date.
--- NOTE | 2018-09-20 15:34 | NUR ---
Occupational Therapy Impression CGA/SBA ambulation x30ft with RW. Max A threading new brief. Min A pulling brief over hips. Pt incontinent of urine, refusing ambulation to toilet. Min A sit<>supine. Continue POC. Occupational Therapy Goals 1. Pt. to perform dressing activities with Min A. 2. Pt. to perform grooming activities, seated, with I. 3. Pt. to perform toileting activities with Min A. 4. Pt. to perform showering activities with Mod A. 5. Pt. to improve Sanjay Index of ADL score by 2 points. Patient's Goal
--- NOTE | 2018-09-20 20:05 | PT ECF NOTE ---
Type of Note: Initial Note Primary Medical Diagnosis: Cholecystectomy; pneumonia Physical Therapy Evaluation Date: 09/19/18 SUBJECTIVE: Prior Hospitalization: [facility] on 09/11/18. Prior Level of Function: Ambulating short distances with use of 4 wheeled walker, use of electric scooter to navigate longer distances. Prior Living Status: [facility] CODE STATUS- DNR/DNI Community Services: None utilized at this time. Home Accessibility: All needs on one level Equipment Owned: Rollator Medical Complications/Past Medical History: Please refer to reports for details. Psychosocial Support: Very supportive family in [place]. Pain Scale (0-10): None stated at time of evaluation. OBJECTIVE: Strength: R) LE 4/5 overall; L) LE 3/5 due to long-standing issues with L) PAULINE and complications ROM: (please note any abnormalities) L) hip limited due to previous PAULINE Sensation: (please note any abnormalities) no paresthesias reported Other Neuro findings: n/a Bed Mobility: Not yet evaluated as pt is up in chair upon eval and declines return to bed as it is almost lunch time. Assistive device: Transfers: Minimum assistance; CGA Assistive Device: Rollator Gait: SBA/CGA Assistive device: Rollator Stairs: N/A Assistive device: Timed Up and Go (>12 seconds indicated increased risk for falls): 2 minutes, 16 seconds 10 meter walk test (0.6m/second cannot function independently): not tested Other Objective Measures: n/a ASSESSMENT: Previously pt was able to access bathroom in apartment without assistance from staff, using 4WW. Pt wears attends undergarments with an additional pad that he removes and changes more frequently than the brief. Pt was indep with this skill as well. Pt is currently noting that he is overly fatigued and his ribs hurt from increased coughing recently. Pt would benefit from short-term rehab to return to prior level of endurance to allow for indep within his apartment and to utilize power chair to access dining room at [facility] as before. Problem List/Current Limitations: Pain, Decreased activity alka, Decreased strength, Decreased balance, Generalized weakness Memory deficits, Shortness of breath Short Term Goals: 1. Pt to be SBA/Modified indep with sit to/from stand transfers 2. Pt to be Min assist for bed mobility and supine to/from sit trnsfrs 3. Pt to ambulate with least restrictive device x 50' with improved functionality, as demonstrated by improved TUG test. Penitentiary Goals: Return to [facility] with prior level of function Patient Goals: Feel better Rehabilitation Prognosis: Good Barriers for Discharge: Pt requests assistance for tasks even when he is physically capable. Pt will need encouragement to begin completing tasks for improved indep in the [facility] environment. PLAN: The patient will benefit from skilled physical therapy services 5 times per week for 2 weeks including: Therapeutic Exercise, Therapeutic Activities Transfer Training, Gait Training, ADL's, Safety Training, Pt/Caregiver Training, Bed Mobility Thank you for this referral. If you have any questions, concerns, or comments about this report or plan, please contact me at . D. Annette Alexander, PT, MPT, OMS MTDD
[2018-09-20] MEDS: TAMSULOSIN HCL 0.4 MG CAP PO SCH (20:27)
[2018-09-20 20:40] VITALS: BP 120/65
[2018-09-21] MEDS: ALBUTEROL/IPRATROPIUM 3 ML NEB NEB SCH ×3 (06:00→18:21)
[2018-09-21 08:15] VITALS: BP 146/75
[2018-09-21] MEDS: POLYETHYLENE GLYCOL 17 GM PKT PO SCH (09:00)
[2018-09-21] MEDS: DOCUSATE SODIUM 100 MG CAP PO SCH ×2 (09:00→20:34)
[2018-09-21] MEDS: FUROSEMIDE 40 MG TAB PO SCH (09:33)
[2018-09-21] MEDS: PANTOPRAZOLE SOD 40 MG TABEC PO SCH (09:33)
[2018-09-21] MEDS: HEPARIN (PORC) 5000 UN/ML VIAL SC SCH ×2 (09:34→20:35)
[2018-09-21] MEDS: AZITHROMYCIN(*) 500 MG 500 MG in NS(*) 0.9% 250 ML BAG 250 ML IVPB SCH (09:35)
[2018-09-21] MEDS: CEFEPIME HCL 2 GM VIAL IVP SCH (10:57)
--- NOTE | 2018-09-21 14:29 | NUR ---
Occupational Therapy Impression Pt. required Max A to change depends and perform toileting activities. Pt. ambulated from alisha chair to ECF DR with SBA. Continue with POC. Occupational Therapy Goals 1. Pt. to perform dressing activities with Min A. 2. Pt. to perform grooming activities, seated, with I. 3. Pt. to perform toileting activities with Min A. 4. Pt. to perform showering activities with Mod A. 5. Pt. to improve Sanjay Index of ADL score by 2 points. Patient's Goal
[2018-09-21 15:55] VITALS: BP 128/65
--- NOTE | 2018-09-21 16:28 | NUR ---
Physical Therapy Impression Pt requires Min A to pull to sitting and Mod A for B LEs for sit>supine. Pt able to stand with SBA and ambulate 40' with RW and CGA. Physical Therapy Goals 1. Pt to be SBA/Modified indep with sit to/from stand transfers 2. Pt to be Min assist for bed mobility and supine to/from sit trnsfrs 3. Pt to ambulate with least restrictive device x 50' with improved functionality, as demonstrated by improved TUG test. Patient's Goals
[2018-09-21] MEDS: TAMSULOSIN HCL 0.4 MG CAP PO SCH (20:35)
[2018-09-22] MEDS: ALBUTEROL/IPRATROPIUM 3 ML NEB NEB SCH ×3 (05:22→17:14)
[2018-09-22 07:30] VITALS: BP 136/69
[2018-09-22] MEDS: DOCUSATE SODIUM 100 MG CAP PO SCH ×2 (09:00→20:53)
[2018-09-22] MEDS: POLYETHYLENE GLYCOL 17 GM PKT PO SCH (09:00)
[2018-09-22] MEDS: PANTOPRAZOLE SOD 40 MG TABEC PO SCH (09:38)
[2018-09-22] MEDS: FUROSEMIDE 40 MG TAB PO SCH (09:38)
[2018-09-22] MEDS: HEPARIN (PORC) 5000 UN/ML VIAL SC SCH ×2 (09:38→20:53)
[2018-09-22] MEDS: AZITHROMYCIN(*) 500 MG 500 MG in NS(*) 0.9% 250 ML BAG 250 ML IVPB SCH (09:52)
[2018-09-22] MEDS: CEFEPIME HCL 2 GM VIAL IVP SCH (11:09)
[2018-09-22 16:55] VITALS: BP 127/69
[2018-09-22] MEDS: TAMSULOSIN HCL 0.4 MG CAP PO SCH (20:53)
[2018-09-23] MEDS: ALBUTEROL/IPRATROPIUM 3 ML NEB NEB SCH ×3 (06:00→17:55)
[2018-09-23] MEDS: POLYETHYLENE GLYCOL 17 GM PKT PO SCH ×2 (09:00→09:10)
[2018-09-23] MEDS: AZITHROMYCIN(*) 500 MG 500 MG in NS(*) 0.9% 250 ML BAG 250 ML IVPB SCH (09:10)
[2018-09-23] MEDS: HEPARIN (PORC) 5000 UN/ML VIAL SC SCH ×2 (09:10→20:35)
[2018-09-23] MEDS: PANTOPRAZOLE SOD 40 MG TABEC PO SCH (09:11)
[2018-09-23] MEDS: FUROSEMIDE 40 MG TAB PO SCH (09:11)
[2018-09-23] MEDS: DOCUSATE SODIUM 100 MG CAP PO SCH ×2 (09:11→20:35)
[2018-09-23 10:02] VITALS: BP 96/56
[2018-09-23] MEDS: CEFEPIME HCL 2 GM VIAL IVP SCH (11:18)
--- NOTE | 2018-09-23 14:30 | NUR ---
Daughters wanting pt discharged soon Daughters Ester and Heather requested that this RN contact hospitalist about discharging pt back to [facility], since he should have last IV abx tomorrow. Dr. Debbie Ortiz was notified and she came to unit to discuss plan of care, including new pathology report from tissue removed from patient's left hip. RN FLIGHT Miriam Huerta is to follow up tomorrow morning, per Dr. Ortiz. Daughters stated they were grateful for the information provided; Heather (an RN) is to be here tomorrow morning to see if she can communicate with surgeon Dr. Muhammad, the oncologist Dr. Sanchez (who treated pt's prostate cancer some time ago), and Miriam Huerta, JORDAN.
[2018-09-23 19:00] VITALS: BP 121/62
[2018-09-23] MEDS: TAMSULOSIN HCL 0.4 MG CAP PO SCH (20:35)
--- NOTE | 2018-09-24 05:00 | NUR ---
For the past two noc shifts patient has refused to reposition in bed. Attempted to explain rationale behind repositioning (skin integrity), reminded patient that he currently has a sore/excoriation to buttock and we should try to take pressure off of it , patient "waved" nurse away. Last evening shift, both patient and daughter requested that patient not be woken up to reposition or empty urinal (Pt keeps urinal between legs all night). Pt and daughter stated that patient would call for assistance if/when he requires it. This nurse assured both patient and daughter that requests will be honored. Pt woke ON HIS OWN this noc shift and requested pillow. This nurse brought pillow and asked if patient wanted or needed anything else, pt spoke "NO" loudly over patient and "waived" nurse out of room.
[2018-09-24] MEDS: ALBUTEROL/IPRATROPIUM 3 ML NEB NEB SCH ×3 (05:43→17:07)
[2018-09-24] MEDS: FUROSEMIDE 40 MG TAB PO SCH (08:41)
[2018-09-24] MEDS: PANTOPRAZOLE SOD 40 MG TABEC PO SCH (08:41)
[2018-09-24] MEDS: HEPARIN (PORC) 5000 UN/ML VIAL SC SCH ×2 (08:41→21:40)
[2018-09-24] MEDS: POLYETHYLENE GLYCOL 17 GM PKT PO SCH (08:45)
[2018-09-24] MEDS: DOCUSATE SODIUM 100 MG CAP PO SCH ×2 (08:46→21:00)
[2018-09-24 08:53] VITALS: BP 138/69
--- NOTE | 2018-09-24 09:08 | NUR ---
Occupational Therapy Impression Pt. ambulated from EOB to ECF DR with CGA with use of FWW on 3.5 L of O2. Pt. required Min A to change gown and Max A to blanka socks. Pt. refused dressing in street clothes. Continue with POC. Occupational Therapy Goals 1. Pt. to perform dressing activities with Min A. 2. Pt. to perform grooming activities, seated, with I. 3. Pt. to perform toileting activities with Min A. 4. Pt. to perform showering activities with Mod A. 5. Pt. to improve Sanjay Index of ADL score by 2 points. Patient's Goal
[2018-09-24] MEDS: AZITHROMYCIN(*) 500 MG 500 MG in NS(*) 0.9% 250 ML BAG 250 ML IVPB SCH (09:58)
[2018-09-24] MEDS: CEFEPIME HCL 2 GM VIAL IVP SCH (11:12)
--- NOTE | 2018-09-24 12:50 | NUR ---
Physical Therapy Impression Pt has met all PT goals with Min/CGA for bed mobility to encourage log roll technique. Pt does better when exiting and entering bed on his L) side, as this is what he is familiar with at home. Pt c/o R) sided rib pain if be lays flat in bed and prefers to have the head of bed elevated. Discussed options of obtaining a wedge pillow for home use with family, in order to address this discomfort without obtaining a hospital bed. Pt notes that he does have a bed rail that is useful. Pt tolerated TUG test and completed this in 45 seconds as compared to 2 min 16 seconds during initial test earlier in rehab stay. Pt notes that he still intends to utilize power chair to access dining room, but feels safe with ambulation for apartment distances at [facility]. PT recommends further rehab to encourage further strengthening and balance, as well as return to indep in apartment setting, however, pt's Dtr Pat does not see the need for this additional service as he will have help at the [facility]. Physical Therapy Goals 1. Pt to be SBA/Modified indep with sit to/from stand transfers 2. Pt to be Min assist for bed mobility and supine to/from sit trnsfrs 3. Pt to ambulate with least restrictive device x 50' with improved functionality, as demonstrated by improved TUG test. Patient's Goals
--- NOTE | 2018-09-24 14:45 | Miscellaneous Provider Note ---
Miscellaneous Provider Note Note Called Dr. Sanchez regarding Pathology report. 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 At this time, patient could likely follow up with Dr. Armendariz for evaluation to receive radiation to hip. Dr. Sanchez would like to get bone marrow biopsy to assess, with patient's history of anemia. I presented options to patient's daughters. They will talk amongst family. They can receive care as an outpatient if they decide to proceed. SHAYY BENOIT TICKER INSTALLER Sep 24, 2018 14:45
[2018-09-24 15:18] VITALS: BP 150/60
--- NOTE | 2018-09-24 18:43 | Medical Nutrition Therapy ---
Nutrition Anthropometrics Height (Inches): 70.00 Height (Calculated Centimeters: 177.973370 Weight (Pounds): 194 Weight (Calculated Kilograms): 87.997 BMI: 27.8 Keaton Nutrition Score: Probably Inadequate Keaton Nutrition Risk Score: 15 Dietary Referral Nutrition Risk Factors: Non-Healing Wound Nutrition Risk Comment: non-healing wound-=infection in hip Nutritional Diagnosis Nutritional Risk Acuity 2: Abcess/Non-Healing Wound Nutritional Risk Acuity 3: Fair Appetite, OR & > 80 yrs, Cancer, GERD, COPD Unstable Nutritional Risk Acuity 4: Age Related Past Medical History: Septic bursitis, parolysmal pupraventricular tachycardia, anemia, GERD, non-pitted edema of LF foot, prostate cancer, depression, sleep apnea, COPD, CKD stage 3, hyponatremia, skin cancer, prostate cancer, acute urinary retention Nutritional Acuity: 2-Moderate Nutrition Diagnosis: Increased Nutrient Needs Nutrition Etiology: Physiological Causes Nutrition Problem/Etiology/Sym: Increased nutrient needs related to physiological causes as evidenced by dx cancer and CKD-stage 3. Energy Requirement: 2086 (MSJ, 1.1 TEF, 1.2 AF) Protein Requirement: 91 (1g AA/kg of BW) Fluid Requirement: 2086 (1ml/kcal) Diet Type: Diet as Tolerated VINNIE/REG Nutrition Intervention: Cont diet as ordered Drug: Diuretics Drug/Nutrition Recommendations: Check Serum K+ Additional Diet Restrictions: OFFER BOOST OR ENSURE CLEAR- BOTH LACTOSE FREE, PUT PROTEIN POWDER IN FOODS Diet Comment To RSA: LACTOSE INTOLERANT--DO NOT SERVE ALL FOODS WITH LACTOSE Offer high protein foods. Nutrition Monitoring & Eval Nutrition Goals: Eat 75-100% Meal Nutrition Follow-Up: Fair Intake RD Patient Assessment Time: [address] Assessment Type: RD Re-Assessment Patient Nutrition Acuity: 2-Moderate Follow Up Date: Oct 02, 2018 Nutritional Comment: 09/17: Pt admitted to [facility] with recent cholecystectomy and pneumonia. Pt has hx of Septic bursitis, parolysmal pupraventricular tachycardia, anemia, GERD, non-pitted edema of LF foot, prostate cancer, depression, sleep apnea, COPD, CKD stage 3, hyponatremia, skin cancer, prostate cancer, acute urinary retention. No labs available at this time. Pt is currently taking heparin and furosemide. Pt is LACTOSE INTOLERANT and requests not to be served lactose. Offer pt high protein foods. Pt is on VINNIE diet consuming 75-100% of meals and refusing snacks. Continue to monitor serum K+ and diet intake. -JJ 09/24 Pt cont on VINNIE. Intake average 57% of small to regular portions. Will offer lactose free nutr supplment to increase kcal and protein. Wt is down 4.5% however pt is on K+ depleting duiretic. K+ on 09/18 was WNR. Pt cont 3+ edema BLE. Anticipate further wt loss when edema resolved. Will cont to monitor and encourage intake. RAY DRUMMOND Sep 24, 2018 18:43
[2018-09-24] MEDS: TAMSULOSIN HCL 0.4 MG CAP PO SCH (21:40)
[2018-09-25] MEDS: ALBUTEROL/IPRATROPIUM 3 ML NEB NEB SCH ×2 (05:23→11:30)
[2018-09-25 06:00] LABS: PLATELET COUNT, AUTOMATED 185 K/uL (150-450)
[2018-09-25 08:10] VITALS: BP 138/62
[2018-09-25] MEDS: POLYETHYLENE GLYCOL 17 GM PKT PO SCH (09:00)
[2018-09-25] MEDS: DOCUSATE SODIUM 100 MG CAP PO SCH (09:00)
--- NOTE | 2018-09-25 09:09 | NUR ---
Spoke at length with daughter Heather, they are unsure of what the plan is but they are willing to have a bone marrow biopsy and local radiation. Discussed plan with Dr. Garvin and Dr. Swanson, business office contacted. Bone Marrow biopsy can not be billed separately. Discussed findings with Heather again, after discussing all of the options she would like to proceed with discharge back to [facility] and then they will set up appointment for biopsy and with Dr. Aranda to discuss plan. Dr. Swanson notified, he will contact Dr. Garvin and also ask about removal of sutures from hip. Message left with [facility] regarding discharge and transportation.
[2018-09-25] MEDS: PANTOPRAZOLE SOD 40 MG TABEC PO SCH (09:10)
[2018-09-25] MEDS: HEPARIN (PORC) 5000 UN/ML VIAL SC SCH (09:10)
[2018-09-25] MEDS: FUROSEMIDE 40 MG TAB PO SCH (09:10)
--- NOTE | 2018-09-25 09:55 | NUR ---
5-day MDS completed with pt. C: 11, D: 01, E: no concerns, Q: referral already made for pt's to return to [facility], pt reporting he is not interested in [facility]. SW will visit with rehab for their recommendations and will follow-up with pt.
--- NOTE | 2018-09-25 11:05 | Hospitalist Depart ---
Discharge Summary Reason for Hosp/Final Diag: (1) Weakness Hospital Course & Plan: Due to prolonged hospitalization, surgery. Improved and [facility]. 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 Arranged for follow up with Dr Schwarz. If family wishes to pursue work up to ascertain extent of involvement will need bone marrow biopsy as outpatient. (3) Osteomyelitis Hospital Course & Plan: Chronic, continue every other day Levaquin for suppression. (4) CKD (chronic kidney disease) stage 3, GFR 30-59 ml/min Status: Chronic Hospital Course & Plan: Stable. (5) COPD (chronic obstructive pulmonary disease) Status: Chronic Hospital Course & Plan: Stable, no home medications. He is on BiPAP. Departure Weight (Pounds): 194 Weight (Ounces): 3.0 Result Diagram: 09/25/1854309/25/18543 Condition: Improved Discharge Instructions Home Meds Active Scripts Polyethylene Glycol 3350 (MIRALAX) 17 Gm Powd.pack, 8.5 GM PO DAILY PRN for CONSTIPATION, #1 BOTTLE 5 Refills Prov:VALE BUTT MD 12/12/17 Tamsulosin Hcl (TAMSULOSIN HCL) 0.4 Mg Cap.er.24h, 0.4 MG PO QHS for 30 Days, #30 CAP 1 Refill Prov:PHOEBE LOJA MD 12/09/17 Pantoprazole Sodium (PANTOPRAZOLE SODIUM) 20 Mg Tablet.dr, 1 TAB PO QDAY, #90 TAB.SR 3 Refills Prov:RONNIE PACHECO APRN ALLOY WEIGHER-C 10/23/17 Reported Medications Alprazolam 0.25 Mg Tab (XANAX 0.25 MG TAB) 0.25 Mg Tablet, 1 TAB PO QDAY for Anxiety, TAB TAKE ONE TABLET BY MOUTH EVERY AFTERNOON NEEDED FOR ANXIETY 09/15/18 Furosemide (FUROSEMIDE) 40 Mg Tablet, 1 TAB PO QDAY, TAB 09/15/18 Loperamide Hcl (LOPERAMIDE) 2 Mg Capsule, 2 MG PO PRN for DIARRHEA, CAPSULE 09/11/18 Mag Hydrox/Aluminum Hyd/Simeth (Maalox Advanced Suspension) 200 Mg-200 Mg-20 Mg/5 Ml Oral.susp 12/25/17 Calcium Carbonate (TUMS X-STR) 300 Mg Tab.chew, 750 MG PO PRN PRN for GAS/HEARTBURN, TAB.CHEW 12/25/17 Magnesium Hydroxide (MILK OF MAGNESIA) 400 Mg/5 Ml Oral.susp, 400 MG PO DAILY PRN for CONSTIPATION, BOTTLE 12/07/17 Levofloxacin 750 Mg Tab (LEVAQUIN 750 MG TAB) 750 Mg Tablet, 1 TAB PO QODAY 05/02/16 Oxygen (OXYGEN) Inha, 3 L INH cont, L 03/10/16 Bipap Home (BIPAP HOME) Inha, HS with oxygen 3 liters 03/10/16 Diet: Regular Activity: As Tolerated Special Instructions: Please follow up at scheduled appointment with Dr Schwarz. Copies to: RONNIE PACHECO APRN ; Venous Thromboembolism Antithrombotics Is Pt On Any Antithrombotics?: No Zali-df-Eqls Certification Face to Face Home Health Certification Patient's Primary Care Provider: Ronnie Pacheco Aprn Institutional Provider conducted the [id number]-[id number] encounter. Electronic Undersigning Physician Certifies Home Health. I certify that the patient has been under my care and that I had a [id number] encounter that meets the physician [id number] encounter requirements with this patient. This patient is home-bound due to safety issues and continues to require assistance with ADL's. I certify that based on my findings, that Nursing, Aides and the following Home Health services are medically necessary: Medical Necessity: Nursing, Rehab Date Face to Face Conducted: Sep 25, 2018 LISA WING DO Sep 25, 2018 11:05
--- NOTE | 2018-09-25 14:35 | OT ECF NOTE ---
Type of Note: Discharge Note Primary Medical Diagnosis: Cholecystectomy Occupational Therapy Evaluation Date: 09/18/18 SUBJECTIVE: Prior Hospitalization: Pt. admitted to [facility] medical/surgical floor on 09/11/18. Prior Level of Function: Ambulating short distances with use of 4 wheeled walker, use of electric scooter to navigate longer distances. Prior Living Status: [facility] CODE STATUS- DNR/DNI Community Services: None utilized at this time. Home Accessibility: All needs on one level Equipment Owned: Rollator Medical Complications/Past Medical History: Please refer to reports for details. Psychosocial Support: Very supportive family in [place]. Pain Scale (0-10): None stated at time of evaluation. OBJECTIVE: Strength: MMT: Right Left Shoulder Flexion [*] [*] Elbow Flexion [*] [*] Wrist Extension [*] [*] Professional Builder [*] [*] (5= normal, 4= good, 3= fair, 2= poor, 1= trace) ROM: Both upper extremities,WFL Functional Transfer: Assistive Device: Front wheeled walker Transfer Ability: SBA ADL: Upper body dressing: Assistive device: Upper body dressing ability: Set-up Lower body dressing: Assistive device: Pt requesting assist for all LB dressing. Lower body dressing ability: Minimum assistance Toileting: Assistive device: Toilet Toileting ability: Minimum assistance Grooming/hygiene: Assistive device: Seated Grooming ability: Set-up Bathing: Assistive device: Shower chair Bathing ability: N/T with OT. Will require assistance with bathing as provided before at [facility]. Standardized Assessment: Sanjay Index of Activities of Daily Living- Pt. scored a 7/20 on this Index upon initial evaluation. 9/20 upon discharge (09/25/18). ASSESSMENT: Pt. is a 88 year old male admitted to [facility] medical/surgical floor, from [facility] on 09/11/18 with complaints of RUQ abdominal pain. Pt. underwent a cholecystectomy by Dr. uMhammad on 09-12-18. Pt. was also diagnosed with pneumonia on 09/17/18. Pt.'s previous level of functioning was the ability to perform transfers with use of rollator walker and transport self to/from meals with use of electric scooter. Pt. has met skilled OT goals and family desires for pt to return to [facility] at current level of function with continued assist for ADLs/IADLs.. Short Term Goals: 1. Pt. to perform dressing activities with Min A. GOAL MET 2. Pt. to perform grooming activities, seated, with I. GOAL MET 3. Pt. to perform toileting activities with Min A. GOAL MET 4. Pt. to perform showering activities with Mod A. GOAL MET 5. Pt. to improve Sanjay Index of ADL score by 2 points. GOAL MET Jail Goals: Return to [facility]. Patient Goals: Return to [facility] Prognosis: Fair Barriers to Discharge: Advanced age, multiple co-morbidities. PLAN: The patient will return to [facility] with continued assist for ADLs/IADLs. Pt declined services. Thank you for this referral. If you have any questions, concerns, or comments about this report or plan, please contact me at . Raina Edwards MS, OTR/L Occupational Therapist EMILIANO
[2018-09-26] MEDS ORDERED: DEN60I SUBQ (09:34)
[2018-09-26] MEDS ORDERED: Nebulizer (16:34)
[2018-09-26] MEDS ORDERED: IPRA3AMP10 IH (16:34)
--- NOTE | 2018-09-27 15:24 | PT ECF NOTE ---
Type of Note: Discharge Summary Primary Medical Diagnosis: Cholecystectomy; pneumonia Physical Therapy Evaluation Date: 09/19/18 SUBJECTIVE: Prior Hospitalization: Pt. admitted to [facility] medical/surgical floor on 09/11/18. Prior Level of Function: Ambulating short distances with use of 4 wheeled walker, use of electric scooter to navigate longer distances. Prior Living Status: [facility] Assisted living facility CODE STATUS- DNR/DNI Community Services: None utilized at this time. Home Accessibility: All needs on one level Equipment Owned: Rollator Medical Complications/Past Medical History: Please refer to reports for details. Psychosocial Support: Very supportive family in [place]. OBJECTIVE: Strength: R) LE 4/5 overall; L) LE 3/5 due to long-standing issues with L) PAULINE and complications ROM: (please note any abnormalities) L) hip limited due to previous PAULINE Sensation: (please note any abnormalities) no paresthesias reported Other Neuro findings: n/a Bed Mobility: Monica/CGA Transfers: SBA/Giancarlo with 4WW Gait: SBA/Giancarlo with 4WW Stairs: N/A Timed Up and Go (>12 seconds indicated increased risk for falls): 45 seconds 10 meter walk test (0.6m/second cannot function independently): not tested Other Objective Measures: n/a ASSESSMENT: Pt has met all PT goals with Min/CGA for bed mobility to encourage log roll technique. Pt c/o R) sided rib pain if be lays flat in bed and prefers to have the head of bed elevated. Discussed options of obtaining a wedge pillow for home use with family, in order to address this discomfort without obtaining a hospital bed. Pt notes that he does have a bed rail that is useful. Pt tolerated TUG test and completed this in 45 seconds as compared to 2 min 16 seconds during initial test earlier in rehab stay. Pt notes that he still intends to utilize power chair to access dining room, but feels safe with ambulation for apartment distances at [facility]. PT recommends further rehab to encourage further strengthening and balance, as well as return to indep in apartment setting, however, pt's Dtr Pat does not see the need for this additional service as he will have help at the [facility]. Problem List/Current Limitations: Pain, Decreased activity alka, Decreased strength, Decreased balance, Generalized weakness Memory deficits, Shortness of breath Short Term Goals: 1. Pt to be SBA/Modified indep with sit to/from stand transfers 2. Pt to be Min assist for bed mobility and supine to/from sit trnsfrs 3. Pt to ambulate with least restrictive device x 50' with improved functionality, as demonstrated by improved TUG test. Correction Goals: Return to [facility] with prior level of function Patient Goals: Feel better PLAN: The patient discharged to [facility] with prior level of assistance Thank you for this referral. If you have any questions, concerns, or comments about this report or plan, please contact me at . Qing Bell, PT, DPT MTDD
== END 2018-09-25 13:40 | disposition home or self-care (01) | DRG 194 ==
LOC: ECF 10:28
PROVIDERS: ADMIT Family Medicine; ATTEND Family Medicine
DX: J18.9 Pneumonia, unspecified organism (principal); M86.9 Osteomyelitis, unspecified; J44.0 Chronic obstructive pulmonary disease with (acute) lower respiratory infection; C83.30 Diffuse large B-cell lymphoma, unspecified site; Z48.815 Encounter for surgical aftercare following surgery on the digestive system; D64.9 Anemia, unspecified; N18.3 Chronic kidney disease, stage 3 (moderate)
CPT/HCPCS: 36415; 82310; 82374; 82435; 82565; 82947; 84132; 84295; 84520; 85025; 94640; 94667; 94668; 97161; 97165; J0456; J0692; J0882; J1644; J7050

== ENCOUNTER 2018-10-01 01:20 | Day surgery (SDC) | payer MEDICARE, OTHER, MEDICAID ==
[2018-09-19 15:07] VITALS: Ht 177.8 cm; Wt 84.4 kg
[~2018-10-01] VITALS: Ht 177.8 cm; Wt 84.4 kg
[~2018-10-01 01:20] MED LIST changes: +IPRA3AMP10 IH; +Nebulizer
[2018-10-01 06:00] VITALS: BP 139/59
[2018-10-01] MEDS ORDERED: MIDAZOLAM 2 MG/2 ML VIAL IVP PRN (06:30)
[2018-10-01] MEDS ORDERED: NORMOSOL R SOLN(*) 1000 ML BAG 1,000 ML IV PRN (06:30)
[2018-10-01] MEDS ORDERED: LIDOCAINE/SOD BICARB 8.4% SYR ID ONE (06:30)
[2018-10-01] MEDS ORDERED: ceFAZolin(*) 2GM/D5W 50ML 50 ML IVPB ONE (06:30)
[2018-10-01] MEDS ORDERED: HEPARIN SOD LCK FLSH 100 UN/ML ONE (06:43)
[2018-10-01] MEDS ORDERED: LIDOCAINE 1%MDV(*)200 MG/20 ML 1 ML ONE (06:44)
[2018-10-01 06:47] LABS: PLATELET COUNT, AUTOMATED 205 K/uL (150-450)
[2018-10-01] MEDS ORDERED: PROPOFOL EMUL(*) 10MG/ML 20 ML 20 ML ONE (06:56)
[2018-10-01 07:43] VITALS: BP 120/64
--- NOTE | 2018-10-01 07:43 | NUR ---
PT INTO STEPDOWN. NO CONCERNS. VSS. ALERT. EASILY REORIENTED TO TIME. NO CONCERNS. RHONCI NOTED THROUGHOUT. PT. ENCOURAGED TO DEEP BREATH AND COUGH. LUNG SOUNDS IMPROVED. ASKING FOR PO INTAKE.
--- NOTE | 2018-10-01 07:55 | NUR ---
DR. MORALES AT BEDSIDE. SPEAKING WITH PT. AND DAUGHTER.
[2018-10-01 07:56] VITALS: BP 121/61
--- NOTE | 2018-10-01 07:58 | NUR ---
PRIMARY CARE PROVIDER CALLED. OKAY'D 1 VIEW CHEST XRAY.
--- NOTE | 2018-10-01 08:00 | NUR ---
PT. TOLERATING PO INTAKE. NO CONCERNS.
--- NOTE | 2018-10-01 08:04 | Short(Outpt) Discharge Summary ---
Discharge Summary Reason for Hosp/Final Diag: (1) Lymphoma Hospital Course & Plan: Bone marrow biopsy completed without problems. Departure Discharge to: Home, Self Care Discharge Instructions Home Meds Active Scripts [Nebulizer] No Conflict Check Prov:RONNIE PACHECO APRN 09/26/18 Ipratropium/Albuterol Sulfate (IPRAT-ALBUT 0.5-3(2.5) MG/3 ML) 3 Ml Ampul.neb, 3 ML IH Q4H PRN for wheezing / shortness of breath, #1 BOX 2 Refills Prov:RONNIE PACHECO APRN 09/26/18 Polyethylene Glycol 3350 (MIRALAX) 17 Gm Powd.pack, 8.5 GM PO DAILY PRN for CONSTIPATION, #1 BOTTLE 5 Refills Prov:VALE BUTT MD 12/12/17 Tamsulosin Hcl (TAMSULOSIN HCL) 0.4 Mg Cap.er.24h, 0.4 MG PO QHS for 30 Days, #30 CAP 1 Refill Prov:PHOEBE LOJA MD 12/09/17 Pantoprazole Sodium (PANTOPRAZOLE SODIUM) 20 Mg Tablet.dr, 1 TAB PO QDAY, #90 TAB.SR 3 Refills Prov:RONNIE PACHECO APRN 10/23/17 Reported Medications Denosumab (PROLIA) 60 Mg/1 Ml Injs, 60 MG SUBQ [id number] 09/26/18 Alprazolam 0.25 Mg Tab (XANAX 0.25 MG TAB) 0.25 Mg Tablet, 1 TAB PO QDAY PRN for ANXIETY, TAB TAKE ONE TABLET BY MOUTH EVERY AFTERNOON NEEDED FOR ANXIETY 09/15/18 Furosemide (FUROSEMIDE) 40 Mg Tablet, 1 TAB PO QDAY, TAB 09/15/18 Loperamide Hcl (LOPERAMIDE) 2 Mg Capsule, 2 MG PO PRN for DIARRHEA, CAPSULE 09/11/18 Calcium Carbonate (TUMS X-STR) 300 Mg Tab.chew, 750 MG PO PRN PRN for GAS/HEARTBURN, TAB.CHEW 12/25/17 Magnesium Hydroxide (MILK OF MAGNESIA) 400 Mg/5 Ml Oral.susp, 400 MG PO DAILY PRN for CONSTIPATION, BOTTLE 12/07/17 Levofloxacin 750 Mg Tab (LEVAQUIN 750 MG TAB) 750 Mg Tablet, 1 TAB PO QODAY 05/02/16 Oxygen (OXYGEN) Inha, 3 L INH cont, L 03/10/16 Bipap Home (BIPAP HOME) Inha, HS with oxygen 3 liters 03/10/16 Discontinued Reported Medications Mag Hydrox/Aluminum Hyd/Simeth (Maalox Advanced Suspension) 200 Mg-200 Mg-20 Mg/5 Ml Oral.susp 12/25/17 Diet: Regular Activity: As Tolerated Special Instructions: You may remove the band-aid on 10/03/18, then you can shower. After showering, leave the biopsy site open to air but leave the steristrips in place until they fall off on their own. Do not immerse the biopsy site for 1 week. 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
--- NOTE | 2018-10-01 08:10 | NUR ---
XRAY AT [facility]. DAUGHTER REQUESTING PT. BE TRANSFERRED TO CANCER CENTER TO RECEIVE TREATMENT
--- NOTE | 2018-10-01 08:25 | NUR ---
pt. not tolerating bp. discharged without orthostatics. pt. to cancer center for treatment.
--- NOTE | 2018-10-01 08:40 | RADIOLOGY IMAGING REPORT ---
FACILITY: [facility] [place] PATIENT NAME: Alok Edwards : 1930 MR: [id number] V: [id number] EXAM DATE: ORDERING PHYSICIAN: RONNIE PACHECO TECHNOLOGIST: Location: [facility] [place] Patient: Alok Edwards : 1930 Visit/Account:[id number] Date of Sevice: 10/01/2018 CHEST SINGLE AP Indication: Follow-up of an pneumonia. Comparison: Chest x-ray 09/14/2018 Findings: Lungs: Coarse interstitial markings of both lungs are stable. There is no focal airspace opacity. Mediastinum/pulmonary vasculature: Heart size is at the upper limits of normal. Bones/soft tissues: Normal. IMPRESSION: 1. Coarse interstitial markings are both lungs, consistent with chronic interstitial changes. 2. No focal airspace opacity identified. However, prior chest CT 09/15/2018 demonstrated consolidation posterior right lung base. Because this is only a AP image, consolidation could still be present. Report Dictated By: Da Leon at 10/01/2018 8:32 AM Report E-Signed By: Da Leon at 10/01/2018 8:37 AM WSN:[id number]
--- NOTE | 2018-10-01 09:14 | OPERATIVE REPORT 1 ---
EVENT DATE: October 01, 2018 SURGEON: Suresh Garvin MD ANESTHESIOLOGIST: Nikos Nava MD ANESTHESIA: TIVA. PREOPERATIVE DIAGNOSIS B-cell lymphoma. POSTOPERATIVE DIAGNOSIS B-cell lymphoma. PROCEDURE PERFORMED Bone marrow aspiration and biopsy. ESTIMATED BLOOD LOSS Minimal. INDICATIONS This is an 88-year old gentleman who recently had a mass removed from his hip and this was confirmed to be a lymphoma. The oncologist has requested bone marrow biopsy and aspiration to facilitate staging of this. DESCRIPTION OF PROCEDURE Patient was brought to the operating room and placed in the left lateral decubitus position on the rrising sun and TIVA anesthesia was administered. The skin overlying his right posterior superior iliac spine was prepped and draped in sterile fashion. A time-out was completed. I injected the skin and the bone marrow with 1% lidocaine without epinephrine. I made a stab incision in the skin using bone marrow aspiration access needle to aspirate marrow cavity and aspirated 20 mL of bone marrow without problems into the heparinated syringe. I passed the needle to the wind turbine service technician, who confirmed that it had good spiculations and appeared to be a good sample. This needle was removed and two 1 cm long core-needle samples of bone marrow were obtained and placed on Telfa and given to the medical laboratory scientist. Patient's skin was cleaned and dried and Steri- Strips were applied over the biopsy site followed by a Band-aid. He was placed on his back to apply pressure on the biopsy site. He was then brought to the recovery area in good condition, having tolerated the procedure without any apparent problems. EMILIANO
[2018-10-03] MEDS ORDERED: TRAM-420 PO (13:30)
[2018-10-03] MEDS ORDERED: ALPR-1 PO (13:30)
== END 2018-10-01 08:35 | disposition home or self-care (01) ==
LOC: OR 01:20
PROVIDERS: ATTEND Surgery
DX: C85.15 Unspecified B-cell lymphoma, lymph nodes of inguinal region and lower limb (principal)
CPT/HCPCS: 38222; 71045; 85025; J2001; J2704; J0690

== ENCOUNTER 2018-10-09 15:43 | Outpatient (RCR) | payer MEDICARE, OTHER, MEDICAID ==
[2018-09-19 15:07] VITALS: BMI 29.0
[~2018-10-09 15:43] MED LIST changes: +TRAM-420 PO
[2018-10-09 15:48] VITALS: BP 149/68
--- NOTE | 2018-10-10 04:41 | TOBIN CONSULT ---
EVENT DATE: October 09, 2018 CHIEF COMPLAINT/REASON FOR CONSULTATION Recently identified diffuse large B-cell lymphoma involving soft tissues of the pelvis. Positive biopsy, 09/12/18. Negative for flow cytometry on bone marrow biopsy dated 10/01/18. See detailed report. 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 Slides read by Dr. Hayes at [facility]. STAGE Undetermined at this time. HISTORY This is my first encounter with Mr. Edwards. His daughter asked to see me first in my office, stating that the patient did not want any form of therapy at this time, as he recently was hospitalized for an extended time period for pneumonia, and during that hospitalization he also was noted to have a soft tissue infection of the left hip around the greater trochanter. He is presently on oral antibiotics. He also developed a pneumonia. He is [facility] the local [facility] facility at this juncture. Patient has multiple comorbidities with excellent summary by the hospitalist team. Patient has been seen previously by Dr. Sanchez, who is well familiar with this case. He has been treated for anemia, potentially related to longstanding androgen deprivation therapy for prostate carcinoma. He underwent a radical prostatectomy in 2009. He was placed on Lupron therapy after the surgery and underwent a bilateral orchiectomy so he could discontinue Lupron therapy. Patient is followed medically by Jayleen Rubi NP, as well. MEDICATIONS 1. Prolia every six months (denosumab). 2. Ipratropium/albuterol inhaler every four hours p.r.n. wheezing. 3. Alprazolam 0.25 mg daily p.r.n. anxiety. 4. Lasix 40 mg daily. 5. MiraLAX, one packet daily. 6. Tamsulosin 0.4 mg daily. 7. Milk of magnesia p.r.n. 8. Pantoprazole 20 mg p.o. daily. 9. Levofloxacin 750 mg daily. 10. Oxygen at 3L. ALLERGIES 1. AMIODARONE. 2. VANCOMYCIN. 3. MIRTAZAPINE. PAST MEDICAL HISTORY 1. Significant hearing deficit. 2. Cardiac arrhythmias (PSVT). 3. COPD. 4. Chronic renal failure. 5. Compression fractures. 6. Osteoarthritis. 7. Osteoporosis. 8. Depression. 9. Chronic anemia. 10. Prostate carcinoma. 11. Osteomyelitis (first identified in 2016). PAST SURGICAL HISTORY 1. ORIF in 2012 and septic hip infection first noted in 2016. 2. Prior laminectomy, 1979. 3. Laminectomy and decompression, 2011; total joint replacement. 4. Prior basal cell carcinoma removed in [address] Siddiqi. FAMILY HISTORY Father had a brain tumor at age 72. Brother also had a brain tumor at age 80. Mother had uterine carcinoma at age 67. SOCIAL HISTORY Former tobacco smoker, 50 pack years minimum, having quit in 2004. He is , lives in assisted living. REVIEW OF SYSTEMS Notable for some swelling in the lower legs, difficulty hearing, and problems with balance. Bruises easily. Suffers from recurrent infections. Shortness of breath with minimal exertion. Urinary incontinence. Wears Depends. Muscle pain intermittently and constipation. PHYSICAL EXAMINATION GENERAL: The patient is a pleasant 88-year-old male who is alert and oriented, in no acute distress; very hard of hearing, unfortunately. VITALS: BP 149/68, pulse 76, respirations 16, temperature 96.8, O2 saturation 94% on 2.5L. LUNGS: Rales in the right lung base. LYMPHATIC: No peripheral lymphadenopathy detected. HEART: Heart sounds regular. HEART: Regular rate and rhythm, no audible murmur. ABDOMEN: Soft, with no gross organomegaly. SKIN: Examination reveals a linear incision over the lateral aspect of the left hip. The daughter was helpful in pointing out the site where the subcutaneous mass was initially identified and subsequently excised, by her report, by Dr. Garvin (listed as a well-circumscribed subdermal nodule in the left flank measuring 3.4 cm in maximum dimension, which was new on CT scan dated 09/11/18 compared to prior study in January 2018). Incision appears to be healing well. NEUROLOGIC: Gait not tested. IMPRESSION This is a very challenging case. We have a complex 88-year-old individual who recently has sustained hospitalization for pneumonia, was found to have a recurrent infection on the soft tissues of the left pelvis during that hospitalization. He was incidentally found to have a 3.4 cm subdermal nodule, which was new over a time period of six months. This was excised by Dr. Garvin and appeared to be a cutaneous large B-cell lymphoma or secondary involvement of the skin by a systemic lymphoma. The pathologist favored the latter. Unfortunately, the patient is too weak at this time to have a PET/CT scan. PLAN At this juncture, I would recommend the patient follow up with Dr. Sanchez within the next few weeks, who is well familiar with his case. I told the patient's daughter that radiation therapy certainly can be delivered successfully to lymphomas with excellent therapeutic response. Treatment courses can be as short as 5 fractions or as long as 20-25 fractions for lymphomas, depending on the site which we are treating and the therapeutic goals. Radiographic films were also reviewed with her. She was very grateful for the information which was provided, and the patient appeared quite pleasant today. He apparently has significant mood swings at times. I told the patient I would be happy to see him back in the radiology oncology clinic for treatment if he so desires in the near future. Radiographic film review and patient interview as well as daughter interview were completed in a time frame of approximately 60 minutes today, with additional 15 minutes reviewing hospital records. Thank you for the referral and opportunity to meet Mr. Edwards at this time. If he is unable to have a PET/CT scan, followup CT scan when he is more medically stable may be also helpful. EMILIANO
[2018-10-18] MEDS ORDERED: IPRA3AMP10 IH (13:30)
[2018-10-18] MEDS ORDERED: LORA-1455 PO (13:59)
[2018-10-23] MEDS ORDERED: LORA-1455 PO (12:43)
[2018-10-23] MEDS ORDERED: TRAM-420 PO (12:43)
[2018-11-13] MEDS ORDERED: FURO-47 PO (15:08)
[2018-11-13] MEDS ORDERED: PANT20TA27 PO (15:08)
[2018-11-16] MEDS ORDERED: LORA-1455 PO (09:57)
[2018-11-17] MEDS ORDERED: LORA-1455 PO (14:50)
[2018-11-17] MEDS ORDERED: TRAM-420 PO (14:50)
[2018-11-26] MEDS ORDERED: LORA-1455 PO (09:48)
== END 2018-11-24 13:51 | disposition home or self-care (01) ==
LOC: RAON 15:43
PROVIDERS: ATTEND Radiology Radiation Oncology
DX: C83.36 Diffuse large B-cell lymphoma, intrapelvic lymph nodes (principal); Z79.899 Other long term (current) drug therapy; Z87.891 Personal history of nicotine dependence
CPT/HCPCS: 99202

== ENCOUNTER → 2018-10-16 | Outpatient (CLI) | payer MEDICARE, OTHER, MEDICAID ==
[2018-09-19 15:07] VITALS: BMI 29.0
== END ==
LOC: SPU 16:13
PROVIDERS: ATTEND Nurse Practitioner Family
DX: R60.9 Edema, unspecified (principal); N18.9 Chronic kidney disease, unspecified; R06.01 Orthopnea
CPT/HCPCS: 82040; 82247; 82310; 82374; 82435; 82565; 82947; 83880; 84075; 84132; 84155; 84295; 84450; 84460; 84520

== ENCOUNTER → 2018-11-08 | Outpatient (CLI) | payer MEDICARE, OTHER, MEDICAID ==
[2018-09-19 15:07] VITALS: BMI 29.0
[~2018-11-08] MED LIST changes: +LORA-1455 PO
--- NOTE | 2018-11-08 16:23 | RADIOLOGY IMAGING REPORT ---
FACILITY: [facility] [place] PATIENT NAME: Alok Edwards : 1930 MR: [id number] V: [id number] EXAM DATE: ORDERING PHYSICIAN: RAMONA GANDHI TECHNOLOGIST: [place] [facility] [place] : 1930 Visit/Account:[id number] Date of Sevice: 11/08/2018 CT VERTEBRA THORACIC (NON CON) COMPARISONS: CT of the chest dated October 06, 2015. ADDITIONAL PERTINENT HISTORY: Pain. TECHNIQUE: Multiple axial images were obtained through the thoracic spine. Coronal and sagittal ref ormatted images obtained off the axial source data. No IV contrast was used for the exam. One of th e following dose optimization techniques was utilized in the performance of this exam: Automated expo sure control; adjustment of the mA and/or kV according to the patient's size; or use of an iterative reconstruction technique. Specific details can be referenced in the facility's radiology CT exam op erational policy. FINDINGS: Postoperative changes: Patient status post previous bilateral laminectomies at T12 and L1. Vertebral body heights and alignment: Findings of moderate loss of height at the level of T12. Inter barbi development of mild loss of height at the level of T9 with interval development of moderate loss of height at the levels of T7 and T5. Persistent mild loss of height at the level of T6. Vertebral bodies: Multilevel compression deformities as detailed above.. Disc spaces: Negative. Cervical thoracic junction: Negative. Surrounding soft tissues and visualized lung parenchyma: Atherosclerotic disease of the thoracic aor ta as well as the origins of the great vessels.. IMPRESSION: 1. Interval development of multilevel compression fractures as detailed above. 2. Postoperative changes at the thoracolumbar junction. Report Dictated By: Masoud Roper MD at 11/08/2018 4:08 PM Report E-Signed By: Masoud Roper MD at 11/08/2018 4:18 PM WSN:[id number]
== END ==
LOC: CT 01:09
PROVIDERS: ATTEND Orthopaedic Surgery
DX: M54.6 Pain in thoracic spine (principal); S32.000S Wedge compression fracture of unspecified lumbar vertebra, sequela
CPT/HCPCS: 72128

== ENCOUNTER 2018-11-16 09:44 | Outpatient (RCR) | payer MEDICARE, OTHER, MEDICAID ==
[2018-09-19 15:07] VITALS: BMI 29.0
[2018-10-01 08:43] VITALS: BP 134/68
[2018-10-16 15:40] VITALS: BP 147/71
[2018-10-16 15:48] LABS: PLATELET COUNT, AUTOMATED 140 K/uL (150-450)
[~2018-11-16 09:44] MED LIST changes: +DARBEPOETIN ESRD 100 MCG/0.5ML SYR IVP ONE
[2018-11-16] MEDS ORDERED: LORA-1455 PO (09:57)
[2018-11-16 10:05] VITALS: BP 111/57
[2018-11-16 10:07] LABS: PLATELET COUNT, AUTOMATED 92 K/uL (150-450)
[2018-11-16] MEDS ORDERED: DARBEPOETIN ESRD 100 MCG/0.5ML SYR IVP ONE (10:35)
[2018-11-17] MEDS ORDERED: TRAM-420 PO (14:50)
[2018-11-17] MEDS ORDERED: LORA-1455 PO (14:50)
[2018-11-26] MEDS ORDERED: LORA-1455 PO (09:48)
== END 2018-11-24 15:48 | disposition home or self-care (01) ==
LOC: SPU 09:44
PROVIDERS: ATTEND Internal Medicine
DX: D46.4 Refractory anemia, unspecified (principal); D63.8 Anemia in other chronic diseases classified elsewhere; Z85.46 Personal history of malignant neoplasm of prostate
CPT/HCPCS: 36415; 85025; 96372; 96374; J0882; 82040; 82247; 82310; 82374; 82435; 82565; 82947; 83880; 84075; 84132; 84155; 84295; 84450; 84460; 84520